=== PATIENT | male | born 1960 | race Caucasian/White ===

== ENCOUNTER 2020-08-18 | Outpatient (REF) | payer MEDICARE, MEDICAID, SELFPAY ==
[2020-08-19 13:52] LABS: Amphetamine Screen Urine Not Detected (Not Detect); Barbiturates, Urine Not Detected (Not Detect); Benzodiazepines Screen Urine Not Detected (Not Detect); Cannabinoid Screen Urine Not Detected (Not Detect); Cocaine Screen Urine Not Detected (Not Detect); Opiate Screen Urine Not Detected (Not Detect); Phencyclidine Screen Urine Not Detected (Not Detect)
== END 2020-08-18 00:01 | disposition home or self-care (01) ==
LOC: HO.LNP
PROVIDERS: Visit Provider Internal Medicine
DX: G89.29 Other chronic pain (principal); M54.5 Low back pain
CPT/HCPCS: 80307

== ENCOUNTER 2020-08-19 14:21 | Outpatient (REF) | payer MEDICARE, MEDICAID, SELFPAY ==
--- NOTE | 2020-08-19 14:26 | XR_ITS ---
EXAMINATION: XR FINGER, RIGHT CLINICAL INFORMATION: Right finger pain. COMPARISON: 09/29/2017 finger radiographs. TECHNIQUE: Three views of the right hand digits. FINDINGS: Postsurgical changes are seen in the second and third digits. The distal cortical margins of the residual proximal phalanx and middle phalanx respectively are intact. Mild to moderate degenerative changes are seen in the interphalangeal joints of the fourth and fifth digits most pronounced in the proximal interphalangeal joint of the fourth digit. The metacarpophalangeal joints are unremarkable. The carpal bones are normally aligned. The distal radius and ulna are intact. The soft tissues are unremarkable. XR/XR finger RT min 2V IMPRESSION: 1. Post surgical changes in the second and third digits without significant abnormality or change. 2. 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
== END 2020-08-19 14:22 | disposition home or self-care (01) ==
LOC: HO.XRAY 14:21
PROVIDERS: PCP Internal Medicine; Visit Provider Internal Medicine
DX: M79.644 Pain in right finger(s) (principal)
CPT/HCPCS: 73140

== ENCOUNTER → 2020-09-02 13:15 | Outpatient (BNVA) | payer MEDICARE, MEDICAID, SELFPAY | PROVIDERS: PCP Internal Medicine; Visit Provider Orthopaedic Surgery | DX: M19.041 Primary osteoarthritis, right hand (principal) | CPT/HCPCS: 99202 ==

== ENCOUNTER 2020-10-29 10:09 | Day surgery (SDC) | payer OTHER, SELFPAY ==
[2020-10-28 10:01] VITALS: BMI 38.0
[2020-10-29 12:03] VITALS: BP 168/95; PULSE 65; RESP 18; TEMP 36.9; O2SAT 96; BMI 37.2
--- NOTE | 2020-10-29 12:58 | P.PCNOP_ITS ---
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 The right ring finger PIP joint was then injected in with a combination of 0.80 mL Depo- Medrol (40 mg/ mL), and some 0.25 % plain Marcaine using the FluoroScan for needle guidance. He tolerated procedure well without any complications. He had good relief of his symptoms before leaving the room. Anesthesia: none Surgeon: Aishwarya Hong Condition: stable Disposition: PACU
== END 2020-10-29 23:59 | disposition home or self-care (01) ==
LOC: HO.SSS 10:10
PROVIDERS: PCP Internal Medicine; Visit Provider Orthopaedic Surgery
PROC: (CPT 20600; principal; 2020-10-29 11:30)
DX: M19.141 Post-traumatic osteoarthritis, right hand (principal); T14.90XS Injury, unspecified, sequela; V18 Pedal cycle rider injured in noncollision transport accident
CPT/HCPCS: 20600; J1040

== ENCOUNTER 2021-01-07 14:55 | Outpatient (REF) | payer OTHER, SELFPAY ==
[2021-01-07 15:49] LABS: MANUAL DIFF FLAG NO
[2021-01-07 15:57] LABS: Basophils Absolute Auto 0.1 X10*3/uL (0.0-0.2); Basophils Percent Auto 0.7 % (0-2); Eosinophils Absolute Auto 0.2 X10*3/uL (0.0-0.4); Eosinophils Percent Auto 2.9 % (0-4); Hematocrit 38.8 % (42-52); Hemoglobin 12.8 g/dl (14.0-18.0); Imm Gran Abs Auto 0.03 X10*3/uL (0.00-0.03); Imm Gran Pct Auto 0.4 % (0.0-0.4); Lymphocytes Absolute Auto 3.6 X10*3/uL (1.2-4.9); Lymphocytes Percent Auto 49.2 % (20-40); Mean Corpuscular Hemoglobin 31.5 pg (27.0-33.0); Mean Corpuscular Volume 95.6 fL (80-98); Mean Platelet Volume 11.2 fL (9.4-12.4); Monocytes Absolute Auto 0.5 X10*3/uL (0.1-1.2); Monocytes Percent Auto 6.1 % (2-11); Neutrophils Percent Auto 40.7 % (45-73); Platelet Count 190 X10*3/uL (160-400); Red Blood Count 4.06 X10*6/uL (4.60-5.80); Red Cell Distribution Width 13.1 % (11.0-16.0); White Blood Count 7.3 X10*3/uL (4.8-10.8)
[2021-01-07 16:20] LABS: Alanine Aminotransferase 29 U/L (0-40); Albumin Level 4.5 g/dL (3.5-5.0); Alkaline Phosphatase 71 U/L (39-117); Anion Gap 15 (12-20); Aspartate Amino Transferase 26 U/L (5-37); Bilirubin Total 0.8 mg/dL (0.0-1.0); Blood Urea Nitrogen 17 mg/dL (9-16); Calcium 9.6 mg/dL (8.4-10.2); Carbon Dioxide 32 mmol/L (22-29); Chloride 100 mmol/L (96-108); Estimated Glomerular Filt Rate > 60; Glucose Random 128 mg/dL (60-115); Potassium 4.5 mmol/L (3.3-5.1); Sodium 142 mmol/L (135-145); Total Protein 8.2 g/dL (6.5-8.0)
== END 2021-01-07 14:56 | disposition home or self-care (01) ==
LOC: HO.LAB 14:55
PROVIDERS: PCP Internal Medicine; Visit Provider Internal Medicine
DX: R42 Dizziness and giddiness (principal)
CPT/HCPCS: 36415; 80053; 84443; 85025

== ENCOUNTER 2021-02-08 11:32 | Emergency (ER) | payer OTHER, SELFPAY ==
--- NOTE | ~2021-02-08 | US_ITS ---
EXAMINATION: US VENOUS ULTRASOUND WITH DOPPLER LOWER EXTREMITY, BILATERAL CLINICAL INFORMATION: Lower extremity swelling and pain. Assess for occult DVT. COMPARISON: Right leg venous ultrasound with Doppler 06/18/2020 TECHNIQUE: Ultrasound of the deep veins is performed from the hip to the calf with compression sonography and color and pulse Doppler assessment. Spectral analysis with color-flow imaging is performed. FINDINGS: RIGHT: There is normal venous compression and respiratory variation and augmented flow. The visualized common femoral vein, superficial femoral vein, profunda femoral vein, popliteal vein, and the trifurcation region shows no evidence of deep venous thrombosis. No popliteal fossa cyst demonstrated. LEFT: There is normal venous compression and respiratory variation and augmented flow. The visualized common femoral vein, superficial femoral vein, profunda femoral vein, popliteal vein, and the trifurcation region shows no evidence of deep venous thrombosis. No popliteal fossa cyst demonstrated. US/US venous duplex LE BI IMPRESSION: No DVT demonstrated in the bilateral lower extremity.
--- NOTE | ~2021-02-08 | XR_ITS ---
EXAMINATION: XR CHEST CLINICAL INFORMATION: Shortness of breath COMPARISON: Previous chest x-ray November 2019 TECHNIQUE: Frontal view of the chest was obtained. FINDINGS: The cardiac and mediastinal contours are stable. The lungs are clear. There is no pleural effusion or pneumothorax. There are degenerative changes of the spine. XR/XR chest 1V IMPRESSION: No evidence for acute disease in the chest.
[2021-02-08 11:38] VITALS: BP 170/86; PULSE 82; RESP 18; TEMP 36.9; O2SAT 98; BMI 33.9
--- NOTE | 2021-02-08 11:41 | ECG_ITS ---
Test Reason : SOB Blood Pressure : / mmHG Vent. Rate : 075 BPM Atrial Rate : 075 BPM P-R Int : 174 ms QRS Dur : 084 ms QT Int : 350 ms P-R-T Axes : 056 000 036 degrees QTc Int : 390 ms Normal sinus rhythm Normal ECG When compared with ECG of 01-APR-2016 11:49, No significant change was found Referred By: Generic ED Physician Electronically Signed By:Everette Beverly
--- NOTE | 2021-02-08 11:59 | ED_ITS ---
HPI - SOB/Dyspnea General Chief Complaint: Dyspnea Stated Complaint: SOB,dizziness Time Seen by Provider: 02/08/21 11:57 Source: patient Mode of arrival: ambulatory Limitations: no limitations History of Present Illness HPI Narrative: 60 y/o male with history of RUBÉN, HTN, HLD, hypothyroidism, GERD, chroic low back pain who presents to the ED from home with 1 month of worsening SOB. He reports after he got the J&J COVID vaccine 1 month ago he noticed he was slightly short of breath and had come coughing. Over the last 2 weeks his coughing episodes increased and he started to get chest discomfort when he coughs. He also has intermittent dizzy spells when he coughs. He reports his breathing is worse with exertion and his coughing is worse at night. He did not sleep well last night due to coughing. He has no pulmonary history. Cough is non-productive. Chest pain is only when he coughs. He has chronic RLE edema, very mild since he had surgery on his knee several years ago. No fever or chills. MD elicited complaint: shortness of breath Onset (ago): week(s) Context: occurred during exertion and anxiety Timing: intermittent Severity: moderate Exacerbating factors: lying flat and exertion Relieving factors: rest Associated symptoms: chest pain and dizziness Treatment prior to arrival: none Related Data Home Medications Medication Instructions Recorded Confirmed clobetasol 0.05 % topical cream 1 applic TOPICAL BID 07/17/20 09/17/20 Previous Rx's Medication Instructions Recorded clobetasol 0.05 % topical ointment 1 applic TOPICAL BID PRN 14 Days 08/10/20 #15 g oxycodone-acetaminophen 5 mg-325 1 tab PO Q6H PRN #110 tab 08/18/20 mg tablet tramadol 50 mg tablet 50 mg PO TID PRN 28 Days #112 tab 08/19/20 zolpidem 10 mg tablet 10 mg PO BEDTIME PRN 30 Days #14 08/21/20 tab amlodipine 10 mg tablet 10 mg PO DAILY #30 tab 09/10/20 atorvastatin 10 mg tablet 10 mg PO DAILY 30 Days #30 tab 09/10/20 levothyroxine 137 mcg tablet 137 mcg PO QAM #90 tab 09/30/20 hydrochlorothiazide 12.5 mg tablet 12.5 mg PO QAM #30 tab 10/20/20 meclizine 25 mg tablet 25 mg PO TID PRN #30 tab 01/07/21 metoprolol succinate 200 mg 200 mg PO DAILY #90 tab 01/25/21 tablet,extended release 24 hr Allergies Allergy/AdvReac Type Severity Reaction Status Date / Time lisinopril Allergy Unknown cough Verified 02/08/21 11:37 Review of Systems Review of Systems: Constitutional: No Fever, No Chills ENT/Mouth: No sore throat, No Rhinorrhea, No Swallowing Difficulty Eyes: No Eye Pain, No Swelling, No Redness Cardiovascular: + Chest Pain, + SOB, + Orthopnea, + Edema Respiratory:+ Cough, No Sputum, No Wheezing, + dyspnea Gastrointestinal: No Nausea, No Vomiting, No Diarrhea, No abdominal Pain Genitourinary: No Dysuria, No Urinary Frequency, No Hematuria Musculoskeletal: No joint pain, No Myalgias Skin: No Skin Lesions, No rash Neuro: + Weakness, No Numbness, + Dizziness, + Headache Psych: + Anxiety/Panic, No Depression Heme/Lymph: No Bruising, No Lymphadenopathy Endocrine: No Polyuria, No Polydipsia PMFSH Past Medical History Attestation statement: The following information was validated with the patient. Medical History Chronic low back pain GERD (gastroesophageal reflux disease) History of temporal arteritis Hypercholesterolemia Hypertension Hypothyroid Obesity (BMI 30-39.9) Obstructive sleep apnea Psoriasis Renal calculi Surgical History History of arthroscopy of right knee History of cholecystectomy Status post trigger finger release Total knee replacement status Family History Family History (Updated 07/16/20 @ 13:10 by Kristen Byrd Kelsi) Father Colon cancer Mother Hypertension CVD (cardiovascular disease) Sister Breast cancer Mouth cancer Social History Social History (Updated 09/02/20 @ 13:29 by Hetal Morrow CMA) Alcohol intake: never Smoking Status: Never smoker Advance Directives: No Advance Directives Information Provided: No Current occupational status: disabled Current occupation: [employer] Physical Exam Vital Signs: Vital Signs: Last Vital Signs Temp 98.5 F 02/08/21 11:38 Pulse 82 02/08/21 11:38 Resp 18 02/08/21 11:38 BP 170/86 H 02/08/21 11:38 Pulse Ox 98 02/08/21 11:38 Body Mass Index 33.9 Appearance: Alert. Oriented X3. No acute distress. Eyes: Pupils equal, round and reactive to light. ENT: Pharynx normal. Neck: Normal inspection. Neck supple. CVS: Normal heart rate and rhythm. Pulses normal. Mild anterior chest wall ten derness bilaterally. Respiratory: No respiratory distress. Breath sounds normal. Abdomen: Obese, Soft and nontender. +BS x4 Skin: Skin warm and dry. Normal skin color. Normal skin turgor. No rashes. Extremities: Trace right lower extremity edema, mild left calf tenderness, no erythema or warmth. Neuro: Oriented X 3. No motor deficit. No sensory deficit. Steady gait. Course Course Course Narrative: 60 y/o male presenting with SOB, cough and intermittent chest pain x1 month, since he got his J&J COVID vaccine. He appears well on arrival, lungs are clear and SPO2 98%. Will get CXR, EKG, labs and LE U/S to r/o DVT. Reevaluation(s) Reevaluation #1: CXR is clear. Lab workup is unremarkable including negtive troponin, BNP and DDIMER. Pending U/S of LE and viral PCR. Reevaluation #2: COVID POSITIVE. Patient counseled on diagnosis and management. LE Dopplers are negative for DVT. He is stable for d/c - no hypoxia or respiratory distress. Counseled on warning signs to return to the ED. Encouraged to f/u with PCP. MDM - SOB/Dyspnea Lab Data Attestation: I reviewed the patient's lab results. Result diagrams: 02/08/21 11:52 02/08/21 11:52 Labs: Lab Results 02/08/21 02/08/21 02/08/21 Range/Units 11:52 11:52 11:52 WBC 5.6 (4.8-10.8) X10*3/uL RBC 4.02 L (4.60-5.80) X10*6/uL Hgb 12.6 L (14.0-18.0) g/dl Hct 38.4 L (42-52) % MCV 95.5 (80-98) fL MCH 31.3 (27.0-33.0) pg MCHC 32.8 (31.0-36.0) g/dl RDW 13.1 (11.0-16.0) % Plt Count 163 (160-400) X10*3/uL MPV 10.9 (9.4-12.4) fL Immature Gran % (Auto) 0.2 (0.0-0.4) % Neut % (Auto) 36.1 L (45-73) % Lymph % (Auto) 44.5 H (20-40) % [place] % (Auto) 13.9 H (2-11) % Eos % (Auto) 4.6 H (0-4) % Baso % (Auto) 0.7 (0-2) % Lymph # (Auto) 2.5 (1.2-4.9) X10*3/uL [place] # (Auto) 0.8 (0.1-1.2) X10*3/uL Eos # (Auto) 0.3 (0.0-0.4) X10*3/uL Baso # (Auto) 0.0 (0.0-0.2) X10*3/uL Abs Immat Gran (auto) 0.01 (0.00-0.03) X10*3/uL Absolute Neuts (auto) 2.0 (2.0-8.3) X10*3/uL Absolute Nucleated RBC 0.000 (0.0-0.012) X10*3/uL Nucleated RBC % (auto) 0.0 (0.0-0.2) /100WBC D-Dimer 206 NG/ML Hold Blue Top SEE NOTE Sodium 139 (135-145) mmol/L Potassium 4.3 (3.3-5.1) mmol/L Chloride 101 (96-108) mmol/L Carbon Dioxide 30 H (22-29) mmol/L Anion Gap 12 (12-20) BUN 16 (9-16) mg/dL Creatinine 1.10 (0.5-1.4) mg/dL Estim Creat Clear Calc 76.1 Estimated GFR > 60 Random Glucose 175 H D (60-115) mg/dL Calcium 9.1 (8.4-10.2) mg/dL Troponin I High Sens (<3.5-35.0) ng/L B-Natriuretic Peptide (<100) pg/mL Urine Color Urine Appearance Urine pH (5.0-8.0) Ur Specific [place] (1.005-1.025) Urine Protein (NEG-TRACE) MG/DL Urine Glucose (UA) (NEG) MG/DL Urine Ketones (NEG) MG/DL Urine Blood (NEG) Urine Nitrite (NEG) Ur Leukocyte Esterase (NEG) Coronavirus (PCR) (Negative) Influenza Type A (PCR) (Negative) Influenza Type B (PCR) (Negative) RSV RNA Qual (PCR) (Negative) 02/08/21 02/08/21 02/08/21 Range/Units 11:52 12:20 12:29 WBC (4.8-10.8) X10*3/uL RBC (4.60-5.80) X10*6/uL Hgb (14.0-18.0) g/dl Hct (42-52) % MCV (80-98) fL MCH (27.0-33.0) pg MCHC (31.0-36.0) g/dl RDW (11.0-16.0) % Plt Count (160-400) X10*3/uL MPV (9.4-12.4) fL Immature Gran % (Auto) (0.0-0.4) % Neut % (Auto) (45-73) % Lymph % (Auto) (20-40) % [place] % (Auto) (2-11) % Eos % (Auto) (0-4) % Baso % (Auto) (0-2) % Lymph # (Auto) (1.2-4.9) X10*3/uL [place] # (Auto) (0.1-1.2) X10*3/uL Eos # (Auto) (0.0-0.4) X10*3/uL Baso # (Auto) (0.0-0.2) X10*3/uL Abs Immat Gran (auto) (0.00-0.03) X10*3/uL Absolute Neuts (auto) (2.0-8.3) X10*3/uL Absolute Nucleated RBC (0.0-0.012) X10*3/uL Nucleated RBC % (auto) (0.0-0.2) /100WBC D-Dimer NG/ML Hold Blue Top Sodium (135-145) mmol/L Potassium (3.3-5.1) mmol/L Chloride (96-108) mmol/L Carbon Dioxide (22-29) mmol/L Anion Gap (12-20) BUN (9-16) mg/dL Creatinine (0.5-1.4) mg/dL Estim Creat Clear Calc Estimated GFR Random Glucose (60-115) mg/dL Calcium (8.4-10.2) mg/dL Troponin I High Sens < 3.5 (<3.5-35.0) ng/L B-Natriuretic Peptide < 10 (<100) pg/mL Urine Color YELLOW Urine Appearance CLEAR Urine pH 5.5 (5.0-8.0) Ur Specific [place] >= 1.030 H (1.005-1.025) Urine Protein TRACE (NEG-TRACE) MG/DL Urine Glucose (UA) NEG (NEG) MG/DL Urine Ketones NEG (NEG) MG/DL Urine Blood NEG (NEG) Urine Nitrite NEG (NEG) Ur Leukocyte Esterase NEG (NEG) Coronavirus (PCR) POSITIVE A (Negative) Influenza Type A (PCR) NEGATIVE (Negative) Influenza Type B (PCR) NEGATIVE (Negative) RSV RNA Qual (PCR) NEGATIVE (Negative) ECG Data Attestation: I personally reviewed and interpreted this ECG as follows: ECG interpretation date: 02/08/21 ECG interpretation time: 13:10 Interpretation: normal sinus rhythm, HR 75 bpm, normal NM interval, normal QTc, no ST segment elevations or depressions Discharge Plan Discharge Clinical Impression: COVID-19 Patient Disposition: Home, Self-Care Instructions: COVID-19 (Coronavirus Disease 2019) (ED) Additional Instructions: You were found to be COVID-19 POSITIVE today. Unfortunately vaccinations so do prevent disease 100% of the time. Hopefully because you were vaccinated your disease will be milder. Your chest x-ray and oxygen levels were normal. Your blood work was unremarkable. Your EKG was normal. Ultrasound of your legs did not show any blood clots. Rest. Drink plenty of fluids. Do not go out in public for the next 10 days. Wear your mask at home and disinfect the surfaces frequently. Keep your windows open when able. Take over the counter cold/flu medications as needed for your symptoms. Take Tylenol and/or Motrin as needed for fevers and body aches. Follow up with your doctor this week. If you shortness of breath worsens , if you develop difficulty breathing or any other concerning symptom come back to the ER for further evaluation. Prescriptions: No Action clobetasol 0.05 % ointment 1 applic topical BID PRN (Reason: rash) 14 Days Qty: 15 RF: 1 tramadol 50 mg tablet 50 mg PO TID PRN (Reason: pain) 28 Days Qty: 112 RF: 2 zolpidem 10 mg tablet 10 mg PO BEDTIME PRN (Reason: sleep) 30 Days Qty: 14 RF: 2 atorvastatin 10 mg tablet 10 mg PO DAILY 30 Days Qty: 30 RF: 4 amlodipine 10 mg tablet 10 mg PO DAILY Qty: 30 RF: 4 levothyroxine 137 mcg tablet 137 mcg PO QAM Qty: 90 RF: 2 hydrochlorothiazide 12.5 mg tablet 12.5 mg PO QAM Qty: 30 RF: 11 meclizine 25 mg tablet 25 mg PO TID PRN (Reason: dizziness) Qty: 30 RF: 0 metoprolol succinate 200 mg tablet extended release 24 hr 200 mg PO DAILY Qty: 90 RF: 2 oxycodone-acetaminophen [Percocet] 5-325 mg tablet 1 tab PO Q6H PRN (Reason: pain) Qty: 110 RF: 0 clobetasol 0.05 % cream 1 applic topical BID RF: 0 Discharge Date/Time: 02/08/21 14:37
[2021-02-08 12:06] LABS: MANUAL DIFF FLAG NO
[2021-02-08 12:09] LABS: Basophils Percent Auto 0.7 % (0-2); Eosinophils Absolute Auto 0.3 X10*3/uL (0.0-0.4); Eosinophils Percent Auto 4.6 % (0-4); Hematocrit 38.4 % (42-52); Hemoglobin 12.6 g/dl (14.0-18.0); Imm Gran Abs Auto 0.01 X10*3/uL (0.00-0.03); Imm Gran Pct Auto 0.2 % (0.0-0.4); Lymphocytes Absolute Auto 2.5 X10*3/uL (1.2-4.9); Lymphocytes Percent Auto 44.5 % (20-40); Mean Corpuscular HGB Conc 32.8 g/dl (31.0-36.0); Mean Corpuscular Hemoglobin 31.3 pg (27.0-33.0); Mean Corpuscular Volume 95.5 fL (80-98); Mean Platelet Volume 10.9 fL (9.4-12.4); Monocytes Absolute Auto 0.8 X10*3/uL (0.1-1.2); Monocytes Percent Auto 13.9 % (2-11); Neutrophils Percent Auto 36.1 % (45-73); Platelet Count 163 X10*3/uL (160-400); Red Blood Count 4.02 X10*6/uL (4.60-5.80); Red Cell Distribution Width 13.1 % (11.0-16.0); White Blood Count 5.6 X10*3/uL (4.8-10.8)
[2021-02-08 12:37] LABS: Anion Gap 12 (12-20); Blood Urea Nitrogen 16 mg/dL (9-16); Calcium 9.1 mg/dL (8.4-10.2); Carbon Dioxide 30 mmol/L (22-29); Chloride 101 mmol/L (96-108); Creatinine Clr Calc Pharmacy 76.1; Estimated Glomerular Filt Rate > 60; Glucose Random 175 mg/dL (60-115); Potassium 4.3 mmol/L (3.3-5.1); Sodium 139 mmol/L (135-145)
[2021-02-08 12:47] LABS: B Type Natriuretic Peptide < 10 pg/mL (<100); Troponin-I High Sensitivity < 3.5 ng/L (<3.5-35.0)
[2021-02-08 12:48] LABS: Glucose Urine UA NEG (NEG); Leukocyte Esterase Urine NEG (NEG); Nitrite Urine NEG (NEG); PH 5.5 (5.0-8.0); Specific Gravity - Urine >= 1.030 (1.005-1.025); Urine Blood NEG (NEG); Urine Ketones NEG (NEG); Urine Protein TRACE MG/DL (NEG-TRACE)
[2021-02-08 12:49] LABS: Appearance Urine CLEAR; Color Urine YELLOW
[2021-02-08 13:04] LABS: Influenza A PCR NEGATIVE (Negative); Influenza B PCR NEGATIVE (Negative); Resp Syncy Virus RNA Qual PCR NEGATIVE (Negative); SARS COV2 PCR INHOUSE POSITIVE (Negative)
[2021-02-08 13:17] LABS: D Dimer 206 NG/ML
== END 2021-02-08 14:37 | disposition home or self-care (01) ==
PROVIDERS: Physician Assistant; Emergency Provider Emergency Medicine; PCP Internal Medicine
DX: U07.1 COVID-19 (principal); R06.00 Dyspnea, unspecified; R60.0 Localized edema; M54.5 Low back pain; Z79.899 Other long term (current) drug therapy
CPT/HCPCS: 0241U; 36415; 71045; 80048; 81003; 83880; 84484; 85025; 85379; 93005; 93970; 99283

== ENCOUNTER 2021-03-04 22:03 | Emergency (ER) | payer OTHER, SELFPAY ==
--- NOTE | ~2021-03-04 | XR_ITS ---
EXAMINATION: XR KNEE, LEFT CLINICAL INFORMATION: Knee pain COMPARISON: 08/03/2017 and 07/13/2017 TECHNIQUE: Four views of the left knee. FINDINGS: Bones and soft tissues are normal aside from some minimal narrowing of the medial compartment. No fracture or joint effusion. Alignment is anatomic. No abnormal soft tissue calcification. XR/XR knee LT 2V IMPRESSION: Mild degenerative changes present. Minimal narrowing of medial compartment
[2021-03-04 22:07] VITALS: BP 180/75; PULSE 92; RESP 18; TEMP 37.1; O2SAT 97; BMI 34.8
--- NOTE | 2021-03-04 23:36 | ED.LOWEXIN ---
HPI - Extremity Injury (Lower) General Chief Complaint: Extremity Injury, Lower Stated Complaint: knee pain Time Seen by Provider: 03/04/21 23:26 Source: patient Mode of arrival: wheelchair Limitations: no limitations History of Present Illness HPI Narrative: Patient comes to emergency room, complaining of left-sided knee pain. Patient states he was at home pushing a door. Patient states that he does not remember hurting himself in any way but he heard a loud pop. Immediately patient started having pain which gradually became worse over the last couple of hours. Patient is unable to bear weight. Patient does not have swelling. Related Data Home Medications Medication Instructions Recorded Confirmed clobetasol 0.05 % topical cream 1 applic TOPICAL BID 07/17/20 09/17/20 Previous Rx's Medication Instructions Recorded clobetasol 0.05 % topical ointment 1 applic TOPICAL BID PRN 14 Days 08/10/20 #15 g oxycodone-acetaminophen 5 mg-325 1 tab PO Q6H PRN #110 tab 08/18/20 mg tablet tramadol 50 mg tablet 50 mg PO TID PRN 28 Days #112 tab 08/19/20 zolpidem 10 mg tablet 10 mg PO BEDTIME PRN 30 Days #14 08/21/20 tab atorvastatin 10 mg tablet 10 mg PO DAILY 30 Days #30 tab 09/10/20 levothyroxine 137 mcg tablet 137 mcg PO QAM #90 tab 09/30/20 hydrochlorothiazide 12.5 mg tablet 12.5 mg PO QAM #30 tab 10/20/20 meclizine 25 mg tablet 25 mg PO TID PRN #30 tab 01/07/21 metoprolol succinate 200 mg 200 mg PO DAILY #90 tab 01/25/21 tablet,extended release 24 hr amlodipine 10 mg tablet 10 mg PO DAILY 90 Days #90 tab 02/12/21 acetaminophen 650 mg PO Q8H PRN #14 tab 03/04/21 ibuprofen 600 mg PO TID PRN #14 tab 03/04/21 Allergies Allergy/AdvReac Type Severity Reaction Status Date / Time lisinopril Allergy Unknown cough Verified 02/08/21 11:37 Review of Systems Review of Systems: Constitutional : No Weight loss, No Fever, No Chills, No Night Sweats, No Fatigue, No Malaise ENT/Mouth : No Hearing loss, No Ear Pain, No Nasal Congestion, No Sinus Pain, No Hoarseness, No sore throat, No Rhinorrhea, No Swallowing Difficulty Eyes: No Eye Pain, No Swelling, No Redness, No Foreign Body, No Discharge, No Vision Changes Cardiovascular : No Chest Pain, No SOB, No Dyspnea on Exertion, No Orthopnea, No Edema, No Palpitations Respiratory : No Cough, No Sputum, No Wheezing, No Smoke Exposure, No Dyspnea Gastrointestinal : No Nausea, No Vomiting, No Diarrhea, No Constipation, No abdominal Pain, No Hematochezia, No Melena Genitourinary : no irregular bleeding, No Dysuria, No Urinary Frequency, No Hematuria, No Urinary Incontinence, No Urgency, No Flank Pain, No Urinary Flow Changes, No Hesitancy Musculoskeletal : Complaining of left knee pain, No Myalgias, No Joint Swelling Skin : No Skin Lesions, No rash Neuro : No Weakness, No Numbness, No Paresthesias, No Loss of Consciousness, No Dizziness, No Headache Psych : No Anxiety/Panic, No Depression, No SI/HI/AH/VH, No Social Issues, Heme/Lymph: No Bruising, No Bleeding,No Lymphadenopathy Endocrine : No Polyuria, No Polydipsia, No Temperature Intolerance [facility] Past Medical History Medical History Chronic low back pain GERD (gastroesophageal reflux disease) History of temporal arteritis Hypercholesterolemia Hypertension Hypothyroid Obesity (BMI 30-39.9) Obstructive sleep apnea Psoriasis Renal calculi Surgical History History of arthroscopy of right knee History of cholecystectomy Status post trigger finger release Total knee replacement status Family History Family History (Updated 07/16/20 @ 13:10 by Kristen Byrd Kelsi) Father Colon cancer Mother Hypertension CVD (cardiovascular disease) Sister Breast cancer Mouth cancer Social History Social History (Updated 09/02/20 @ 13:29 by Hetal Morrow CMA) Alcohol intake: never Advance Directives: No Advance Directives Information Provided: No Current occupational status: disabled Current occupation: [employer] Physical Exam Vital Signs: Vital Signs: Last Vital Signs Temp 98.7 F 03/04/21 22:07 Pulse 92 03/04/21 22:07 Resp 18 03/04/21 22:07 BP 180/75 H 03/04/21 22:07 Pulse Ox 97 03/04/21 22:07 Body Mass Index 34.8 Appearance: Alert. Oriented X3. No acute distress. Eyes: Pupils equal, round and reactive to light. ENT: Pharynx normal. Neck: Normal inspection. Neck supple. No lymph nodes noted. No crepitus CVS: Normal heart rate and rhythm. Pulses normal. Normal S1 and S2 Respiratory: No respiratory distress. Breath sounds normal. No Wheezing. No rales Abdomen: Soft and nontender. No rigidity. No distention. good BS x4 Skin: Skin warm and dry. Normal skin color. Normal skin turgor. Extremities: No lower extremity edema. Left knee is not swollen, no joint effusion appreciated. Patient has no pain above or below the knee, no patella pain, no pain behind the knee. Negative anterior and posterior drawer test, patient does have a positive valgus and varus stress test Neuro: Oriented X 3. No motor deficit. No sensory deficit. Moving all extermities. No slurred speech. Course Course Course Narrative: Patient's x-ray is within normal limits. I discussed with the patient that given his history and physical exam, he likely has a ligament rupture. Patient will likely need an MRI. Patient was provided with a knee immobilizer and crutches. MDM - Extremity Injury (Lower) Imaging Data Left knee x-ray: Radiologist's impression: FINDINGS: Bones and soft tissues are normal aside from some minimal narrowing of the medial compartment. No fracture or joint effusion. Alignment is anatomic. No abnormal soft tissue calcification. XR/XR knee LT 2V IMPRESSION: Mild degenerative changes present. Minimal narrowing of medial compartment Discharge Plan Discharge Clinical Impression: Acute knee pain Qualifiers: Laterality: left Qualified Code(s): M25.562 - Pain in left knee Patient Disposition: Home, Self-Care Instructions: Knee Pain (ED), Knee Immobilizer (ED) Additional Instructions: It is very likely that you have a ligament rupture in your knee. Please follow-up with your primary care physician as you may need an MRI. Avoid weight-bearing. Please follow-up with your primary care physician and orthopedic surgeon tomorrow. If you have any worsening or new symptoms, please return to the emergency room or call 911 Prescriptions: New ibuprofen 600 mg tablet 600 mg PO TID PRN (Reason: fever) Qty: 14 RF: 0 acetaminophen 650 mg tablet extended release 650 mg PO Q8H PRN (Reason: pain) Qty: 14 RF: 0 No Action clobetasol 0.05 % ointment 1 applic topical BID PRN (Reason: rash) 14 Days Qty: 15 RF: 1 tramadol 50 mg tablet 50 mg PO TID PRN (Reason: pain) 28 Days Qty: 112 RF: 2 zolpidem 10 mg tablet 10 mg PO BEDTIME PRN (Reason: sleep) 30 Days Qty: 14 RF: 2 atorvastatin 10 mg tablet 10 mg PO DAILY 30 Days Qty: 30 RF: 4 levothyroxine 137 mcg tablet 137 mcg PO QAM Qty: 90 RF: 2 hydrochlorothiazide 12.5 mg tablet 12.5 mg PO QAM Qty: 30 RF: 11 meclizine 25 mg tablet 25 mg PO TID PRN (Reason: dizziness) Qty: 30 RF: 0 metoprolol succinate 200 mg tablet extended release 24 hr 200 mg PO DAILY Qty: 90 RF: 2 amlodipine 10 mg tablet 10 mg PO DAILY 90 Days Qty: 90 RF: 3 oxycodone-acetaminophen [Percocet] 5-325 mg tablet 1 tab PO Q6H PRN (Reason: pain) Qty: 110 RF: 0 clobetasol 0.05 % cream 1 applic topical BID RF: 0 Referrals: Deacon Medina MD [Physician] - 2 days
[2021-03-04] MEDS: Ibuprofen 600 MG TABLET PO (23:41)
[2021-03-05 00:17] VITALS: BP 140/80; PULSE 80; RESP 20; O2SAT 97
--- NOTE | 2021-03-05 00:21 | PC.NURSE ---
PT SEEN AND EVALUATED BY DR CARVAJAL. MONO REVIEWED BY MD. PLAN IS FOR DC HOME WITH IMMOBILIZER AND CRUTCHES. IMMOBILIZER APPLIED BY JASMIN ORELLANA. CRUTCH TRAINING PROVIDED BY RN. PT RETURN DEMONSTRATED WITH PROPER TECHNIQUE. AWARE AND AGREEABLE TO DC PLAN. CMS INTACT. PT STATES NO QUESTIONS
== END 2021-03-05 00:23 | disposition home or self-care (01) ==
PROVIDERS: Emergency Provider Emergency Medicine; PCP Internal Medicine
DX: M25.562 Pain in left knee (principal)
CPT/HCPCS: 73560; 99284

== ENCOUNTER → 2021-03-08 15:06 | Outpatient (BNVA) | payer OTHER, SELFPAY | PROVIDERS: PCP Internal Medicine; Visit Provider Orthopaedic Surgery | DX: S80.02XD Contusion of left knee, subsequent encounter (principal) | CPT/HCPCS: 99212 ==

== ENCOUNTER → 2021-04-15 14:12 | Outpatient (BNVA) | payer OTHER, SELFPAY | PROVIDERS: PCP Internal Medicine; Visit Provider Orthopaedic Surgery | DX: M25.462 Effusion, left knee (principal) | CPT/HCPCS: 99212 ==

== ENCOUNTER 2021-04-30 11:01 | Outpatient (REF) | payer OTHER, SELFPAY ==
--- NOTE | ~2021-04-30 | MR_ITS ---
EXAMINATION: MR KNEE WITHOUT CONTRAST, LEFT CLINICAL INFORMATION: Left knee pain and effusion. COMPARISON: Radiographs of knee from 03/04/2021 TECHNIQUE: MRI of the knee without contrast was performed using routine sequences on a high-field scanner. FINDINGS: MENISCI: Medial Meniscus: There is signal change of mucoid degeneration of the body and posterior horn. The free edge of the meniscal body is slightly truncated and, in this area, there appears to be a small horizontal tear at the inner third of the meniscal body. No meniscal flap. The root ligaments are intact. Lateral Meniscus: There is mucoid degeneration and horizontal undersurface tear involving anterior and posterior horns. The tear extends into the peripheral third of the meniscus, where there is minimal displacement of meniscal tissue at the nonarticular surface and formation of a 0.6 x 1.2 x 1.2 cm parameniscal cyst, deep to the fibular collateral ligament. LIGAMENTS: Cruciate: Anterior cruciate ligament is intact but mildly thickened and mild heterogeneous from mucoid degeneration. Posterior cruciate ligament is unremarkable. Collateral: At the medial knee, the tibial collateral ligament is intact. At the lateral knee, the iliotibial band, fibular collateral ligament, biceps femoris tendon and popliteus tendon are intact. EXTENSOR MECHANISM: The distal quadriceps tendon is normal. The patellar tendon, patellar retinacula, and Hoffa's fat pad are unremarkable. ARTICULAR CARTILAGE/BONE: Patellofemoral Compartment: Patella is properly positioned within the trochlear groove. Moderate and high-grade chondral loss of the upper pole of the patella, and partial-thickness fissures in cartilage at the median ridge in the mid third of the patella. A full-thickness chondral defect of the inferior aspect of the medial trochlear facet measures 1 cm diameter. Medial Compartment: Mild thinning and fissuring of articular cartilage at the weightbearing femoral condyle. Also, chondral fissure is noted in the posterior third of the condyle (image 9, series 2). Marginal osteophytes of the mildly degenerated compartment. Lateral Compartment: The articular cartilage is generally well-preserved. No bone bruise or fracture. Small ganglion cyst along the posterior joint capsule, deep to the lateral gastrocnemius, measures up to 1.1 cm. JOINT FLUID AND BURSAE: Small joint effusion. No Vee's cyst. MR/MR knee LT wo con IMPRESSION: * Mild osteoarthritis of medial tibiofemoral compartment and moderate osteoarthritis of the patellofemoral compartment. Articular cartilage loss is worst (i.e., moderate to severe) at the upper pole of the patella and inferior aspect of the medial trochlear facet. * Horizontal tear of the lateral meniscus extends from anterior to posterior horn and also disrupts the peripheral, nonarticular surface of the meniscal body where there is a parameniscal cyst. * Small horizontal tear at the free edge of the medial meniscal body. * There is mucoid degeneration of the anterior cruciate ligament. * Small joint effusion without Vee's cyst.
== END 2021-04-30 11:02 | disposition home or self-care (01) ==
LOC: HO.MRI 11:01
PROVIDERS: Visit Provider Orthopaedic Surgery
DX: M25.462 Effusion, left knee (principal)
CPT/HCPCS: 73721

== ENCOUNTER → 2021-05-20 13:19 | Outpatient (BNVA) | payer OTHER, SELFPAY | PROVIDERS: Visit Provider Orthopaedic Surgery | DX: S83.282D Other tear of lateral meniscus, current injury, left knee, subsequent encounter (principal) | CPT/HCPCS: 99212 ==

== ENCOUNTER 2021-06-15 10:46 | Outpatient (REF) | payer OTHER, SELFPAY ==
[2021-06-15 11:49] LABS: MANUAL DIFF FLAG NO
[2021-06-15 12:01] LABS: Estimated Average Glucose 146 mg/dL; Hemoglobin A1c % 6.7 %
[2021-06-15 12:04] LABS: Basophils Absolute Auto 0.1 X10*3/uL (0.0-0.2); Basophils Percent Auto 0.7 % (0-2); Eosinophils Absolute Auto 0.4 X10*3/uL (0.0-0.4); Eosinophils Percent Auto 5.1 % (0-4); Hematocrit 39.9 % (42-52); Hemoglobin 13.1 g/dl (14.0-18.0); Imm Gran Abs Auto 0.01 X10*3/uL (0.00-0.03); Imm Gran Pct Auto 0.1 % (0.0-0.4); Immature Retic Fraction 17.9 % (2.3-13.4); Lymphocytes Absolute Auto 3.9 X10*3/uL (1.2-4.9); Lymphocytes Percent Auto 54.9 % (20-40); Mean Corpuscular HGB Conc 32.8 g/dl (31.0-36.0); Mean Corpuscular Hemoglobin 30.7 pg (27.0-33.0); Mean Corpuscular Volume 93.4 fL (80-98); Mean Platelet Volume 10.7 fL (9.4-12.4); Monocytes Absolute Auto 0.5 X10*3/uL (0.1-1.2); Monocytes Percent Auto 7.1 % (2-11); Neutrophils Absolute Auto 2.3 X10*3/uL (2.0-8.3); Neutrophils Percent Auto 32.1 % (45-73); Platelet Count 216 X10*3/uL (160-400); Red Blood Count 4.27 X10*6/uL (4.60-5.80); Red Cell Distribution Width 13.5 % (11.0-16.0); Retic HGB Equivalent 34.3 pg (30.0-35.0); Reticulocyte Percent 1.6 % (0.5-1.8); Reticulocytes Absolute 0.068 X10*6/uL (0.026-0.095)
[2021-06-15 12:21] LABS: Alanine Aminotransferase 16 U/L (0-40); Albumin Level 4.4 g/dL (3.5-5.0); Alkaline Phosphatase 65 U/L (39-117); Anion Gap 11 (12-20); Aspartate Amino Transferase 20 U/L (5-37); Bilirubin Total 0.9 mg/dL (0.0-1.0); Blood Urea Nitrogen 13 mg/dL (9-16); Calcium 9.7 mg/dL (8.4-10.2); Carbon Dioxide 31 mmol/L (22-29); Chloride 104 mmol/L (96-108); Cholesterol 240 mg/dL; Estimated Glomerular Filt Rate > 60; Glucose Random 132 mg/dL (60-115); HDL Cholesterol 52 mg/dL; Iron 101 mcg/dL (45-160); LDL Cholesterol Calculated 136 mg/dl; Percent Iron Saturation 25 % (15-50); Potassium 4.7 mmol/L (3.3-5.1); Sodium 141 mmol/L (135-145); Total Iron Binding Capacity 401 mcg/dL (228-428); Total Protein 7.7 g/dL (6.5-8.0); Triglycerides 263 mg/dL; Unsaturated Iron Binding 300 ug/dL
[2021-06-15 12:27] LABS: Ferritin 182 ng/mL (20-250); Free T4 (Free Thyroxine) 0.81 ng/dL (0.71-1.85); Prostate Specific Antigen Scr 0.39 ng/mL (<0.05-4.0); Thyroid Stimulating Hormone 4.14 uIU/mL (0.32-4.0)
[2021-06-15 12:43] LABS: Folate 15.3 ng/mL (> or = 4.0); Vitamin B12 382 pg/mL (200-900)
== END 2021-06-15 10:47 | disposition home or self-care (01) ==
LOC: HO.LAB 10:46
PROVIDERS: PCP Internal Medicine; Visit Provider Internal Medicine
DX: R73.02 Impaired glucose tolerance (oral) (principal); E78.00 Pure hypercholesterolemia, unspecified; E03.9 Hypothyroidism, unspecified; Z12.5 Encounter for screening for malignant neoplasm of prostate
CPT/HCPCS: 36415; 80053; 80061; 82607; 82728; 82746; 83036; 83540; 84153; 84439; 84443; 85025; 85045

== ENCOUNTER 2021-06-23 06:02 | Day surgery (SDC) | payer OTHER, SELFPAY ==
[2021-06-17 10:21] VITALS: BMI 33.3
--- NOTE | 2021-06-22 09:00 | P.CONAN_ITS ---
Documented by User: Louisa Akins NP 06/22/21 09:02 HPI - Anesthesia Eval Consult details Narrative: 60yo M for Left Knee Arthroscopy PMFSH Active Problems Active Problems: All Active Problems (Updated 06/17/21 @ 10:15 by Nita Alanis RN) Finger pain, right (Acute) Osteoarthritis of right hand (Acute) Impaired glucose tolerance (Acute) Dizziness (Acute) COVID-19 (Acute) Tear of meniscus of left knee (Acute) Effusion, left knee (Acute) Psoriasis (Acute) Hypercholesterolemia (Acute) GERD (gastroesophageal reflux disease) (Acute ~04/15/21) Obesity (BMI 30-39.9) (Acute) Hypothyroid (Acute) Chronic low back pain (Acute) Hypertension (Acute) Past Medical History Medical History Chronic low back pain Effusion, left knee GERD (gastroesophageal reflux disease) (~04/15/21) History of COVID-19 History of herniated intervertebral disc History of temporal arteritis Hx of iron deficiency anemia Hypercholesterolemia Hypertension Hypothyroid Obesity (BMI 30-39.9) Obstructive sleep apnea On beta anival at home Osteoarthritis Psoriasis Renal calculi Family History Family History Father Colon cancer Mother Hypertension CVD (cardiovascular disease) Sister Breast cancer Mouth cancer Surgical History Surgical History History of arthroscopy of right knee History of cholecystectomy Hx of colonoscopy Hx of surgical amputation of finger Status post trigger finger release Total knee replacement status Social History Social History Housing: House Are you a primary critical care nurse specialist to a significant other at home: No Do you presently have visiting nurse or other home services: No Alcohol intake: never Patient Tobacco Use Status: Never used Tobacco Second Hand Smoke Exposure: No Use of substances other than those prescribed or required for medical reasons: No Have you been hit, kicked, punched, or otherwise hurt by someone within the past year? If so, by whom?: No Are you DNR?: No Advance Directives: No Advance Directives Information Provided: No Advance Directives on File: No Recently lost weight without trying: No Eating poorly because of decreased appetite: No Nutrition Risks: No Nutritional Risk service: No Current occupational status: disabled Current occupation: [employer] Meds Allergies Allergy/AdvReac Type Severity Reaction Status Date / Time lisinopril Allergy Severe cough Verified 06/23/21 06:30 Exam Exam Date and Time: June 22, 2021 0900 Height,Weight and Vital Signs: Height 5 ft 5 in Weight 90.718 kg Pertinent Lab Results Pertinent Lab Results: Laboratory Tests 06/15/21 06/15/21 11:10 11:10 WBC 7.0 Hgb 13.1 L Hct 39.9 L Plt Count 216 D Sodium 141 Potassium 4.7 Chloride 104 Carbon Dioxide 31 H BUN 13 Creatinine 1.02 Narrative Narrative: EKG 01/2021 Vent. Rate : 075 BPM ? ? Atrial Rate : 075 BPM ?? P-R Int : 174 ms? QRS Dur : 084 ms ? ? QT Int : 350 ms ? ? ? P-R-T Axes : 056 000 036 degrees ?? QTc Int : 390 ms ? Normal sinus rhythm Normal ECG When compared with ECG of 01-APR-2016 11:49, No significant change was found Assessment and Plan Assessment Anesthesia Assessment: Chart Reviewed Documented by User: Neil Parikh MD 06/23/21 06:57 [facility] Past Medical History Medical History Chronic low back pain Effusion, left knee GERD (gastroesophageal reflux disease) (~04/15/21) History of COVID-19 History of herniated intervertebral disc History of temporal arteritis Hx of iron deficiency anemia Hypercholesterolemia Hypertension Hypothyroid Obesity (BMI 30-39.9) Obstructive sleep apnea On beta anival at home Osteoarthritis Psoriasis Renal calculi Family History Family History Father Colon cancer Mother Hypertension CVD (cardiovascular disease) Sister Breast cancer Mouth cancer Family history of problems with anesthesia: No Surgical History Surgical History History of arthroscopy of right knee History of cholecystectomy Hx of colonoscopy Hx of surgical amputation of finger Status post trigger finger release Total knee replacement status History of Problems with Anesthesia: No Social History Social History Housing: House Are you a primary critical care nurse specialist to a significant other at home: No Do you presently have visiting nurse or other home services: No Alcohol intake: never Patient Tobacco Use Status: Never used Tobacco Second Hand Smoke Exposure: No Use of substances other than those prescribed or required for medical reasons: No Have you been hit, kicked, punched, or otherwise hurt by someone within the past year? If so, by whom?: No Are you DNR?: No Advance Directives: No Advance Directives Information Provided: No Advance Directives on File: No Recently lost weight without trying: No Eating poorly because of decreased appetite: No Nutrition Risks: No Nutritional Risk service: No Current occupational status: disabled Current occupation: [employer] Allergies Allergy/AdvReac Type Severity Reaction Status Date / Time lisinopril Allergy Severe cough Verified 06/23/21 06:30 Exam Airway Mallampati Class: III TM Dist: >3cm Neck ROM: Full Loose/Missing/Broken Teeth: No Heart: [id number] Lungs: cta b/l Assessment and Plan Assessment Anesthesia Assessment: Anesthesia Plan Discussed Final Anesthetic Review Family History of Problems with Anesthesia: No History of Problems with Anesthesia: No NPO: Yes ASA Class: III Final Preanesthetic Review: No Changes in Pt Med Stat, Meds/Allgs Chart Reviewed, Consent Obtained/Reviewed and Anes Risks/Benef Reviewed Patient Risk: Intermediate Procedure Risk: Low Assessment/Block/Sedation in SS: Assess/Block/Sedation-SS Anesthetic Plan Anesthetic Plan: GA and Agree w/ Assess. and Plan Disposition: Standard PACU
[2021-06-23] VITALS (18 sets, daily range): BP systolic 119–170; BP diastolic 56–97; PULSE 62–83; RESP 16–20; TEMP 36.2–36.9; O2SAT 88–98
[2021-06-23] MEDS: Lactated Ringers 1,000 ML 100 ML IVCONT (06:38)
--- NOTE | 2021-06-23 07:19 | MHC.SHP ---
Pre-Procedural Eval Section A Date of Service: 06/23/21 The patient is an INPATIENT: No Changes since office visit: Yes Patient answered all questions; No Cold of Flu in the past 2 weeks, No New Medical Problems and No Changes in Medication The History & Physical has been completed within 30 days and I have reviewed it.: Yes Section B Chief Complaint: tear of meniscus Allergies: Allergies Allergy/AdvReac Type Severity Reaction Status Date / Time lisinopril Allergy Severe cough Verified 06/23/21 06:30 Plan I have reviewed the history and physical and performed a pertinent physical examination on my patient. No changes have occurred unless specified.
--- NOTE | 2021-06-23 08:15 | P.BOP_ITS ---
Brief Operative Note Date of Service: 06/23/21 Pre-op diagnosis: left knee MMT Post-op diagnosis: other (left knee mmt; left knee LMT) Procedure: Left knee with partial medial and lateral meniscectomy Surgeon: Deacon Medina MD Anesthesia: GETA and local Was an Clay Transporter used for this Procedure?: No Estimated blood loss (mL): 1 IV fluids (mL): 600 Pathology: none sent Condition: stable Disposition: PACU
--- NOTE | 2021-06-23 08:20 | W.PM.OPN ---
Operative Note Operative Note Date of Service: 06/23/21 Narrative: Pre-op diagnosis: left knee MMT Post-op diagnosis: other (left knee mmt; left knee LMT) Procedure: Left knee with partial medial and lateral meniscectomy Surgeon: Deacon Medina MD Anesthesia: GETA and local Was an Director Of Market Intelligence used for this Procedure?: No Estimated blood loss (mL): 1 IV fluids (mL): 600 Pathology: none sent Condition: stable Disposition: PACU Procedure in detail: Patient was brought to the operating room placed supine on the arthroscopic table and prepped and draped in standard sterile fashion. A time-out was called to identify proper site proper procedure proper surgeon and IV antibiotics per weight were administered. I began by exsanguinating the limb and insufflating tourniquet to 300 mm Hg. Then made a standard anterolateral stab incision. The knee was insufflated with saline and a 30 degree arthroscope was placed. There was grade 1 fibrillations of the patella but overall suprapatellar pouch was clean and the gutters were clean. I descended into the medial compartment where I made my medial portal under direct visualization. There was obvious of complex tear of the b posterior horn of the medial meniscus. Root was intact and there was grade 1 changes with some scattered grade 2 changes throughout the medial compartment and one area or [id number] G3 changes of the WB portion of the MFC. I used a combination of biter shaver and cautery to remove unstable portions of the meniscus and performed a gentle chondroplasty of the MFC. Approximally 20% meniscal volume was removed. Once I wassatisfied with this the ACL was examined and found to be intact and the lateral compartment was entered. There was an undersurface flap tear of the bosy of the lateral meniscus. A shaver was used to remove this flap and a probe was used to confirm stability of the meniscus. The lateral tibial plateau hasd some scattered G1 changes only. I took my final pictures and removed all instrumentation and closed the portals with skin glue. 25 mL of 2% Marcaine with epinephrine was injected into the joint and the surrounding soft tissues. Patient was then placed in sterile dressing extubated brought recovery room stable condition. There were no known complications.
[2021-06-23] MEDS: fentaNYL citrate/PF 100 MCG/2 ML VIAL 50 MCG IVPUSH (08:48)
[2021-06-23] MEDS: oxyCODONE HCl Immed Release 5 MG TABLET 10 MG PO (08:55)
[2021-06-23] MEDS: Acetaminophen 325 MG TABLET 650 MG PO (10:04)
== END 2021-06-23 11:23 | disposition home or self-care (01) ==
PROVIDERS: PCP Internal Medicine; Visit Provider Orthopaedic Surgery
PROC: (CPT 29870; principal; 2021-06-23 07:30)
DX: S83.232A Complex tear of medial meniscus, current injury, left knee, initial encounter (principal); S83.282A Other tear of lateral meniscus, current injury, left knee, initial encounter; M17.12 Unilateral primary osteoarthritis, left knee; I10 Essential (primary) hypertension; X58.XXXA Exposure to other specified factors, initial encounter; Y93.9 Activity, unspecified; Y92.9 Unspecified place or not applicable; Y99.9 Unspecified external cause status
CPT/HCPCS: 29880; J0171; J0690; J1100; J1885; J2250; J2405; J3010

== ENCOUNTER 2021-09-14 12:20 | Outpatient (REF) | payer OTHER, SELFPAY ==
--- NOTE | ~2021-09-14 | XR_ITS ---
EXAMINATION: XR FINGER, RIGHT CLINICAL INFORMATION: Pain COMPARISON: Previous x-ray August 2020 TECHNIQUE: Three views of the right fourth finger. FINDINGS: Bone alignment is normal. No fracture or dislocation is seen. There is osteoarthritis at the IP joints of the fourth finger and DIP joint of the fifth finger. There is mild periarticular soft tissue swelling adjacent to the PIP joint of the fourth finger. There is amputation of the second and third fingers. XR/XR finger RT min 2V IMPRESSION: Osteoarthritis of the fourth and fifth fingers. Periarticular soft tissue swelling adjacent to the PIP joint of the fourth finger.
== END 2021-09-14 12:21 | disposition home or self-care (01) ==
LOC: HO.LAB 12:20
PROVIDERS: PCP Internal Medicine; Visit Provider Internal Medicine
DX: M79.644 Pain in right finger(s) (principal)
CPT/HCPCS: 73140

== ENCOUNTER → 2021-10-04 09:22 | Outpatient (REF) | payer OTHER, SELFPAY | LOC: HO.SL 09:22 | PROVIDERS: PCP Internal Medicine; Visit Provider Internal Medicine | DX: G47.10 Hypersomnia, unspecified (principal); G47.33 Obstructive sleep apnea (adult) (pediatric) | CPT/HCPCS: 95806 ==

== ENCOUNTER → 2021-10-15 07:53 | Outpatient (REF) | payer OTHER, SELFPAY ==
--- NOTE | 2021-10-15 08:03 | CA_ITS ---
Transthoracic Echocardiogram Patient (Last, First, Middle): Xander Marin A Gender: Male Date of : 1960 Age: 60 Procedure Date: 10/15/2021 Procedure Type: Transthoracic Echocardiogram Location: OP Height: 165.1 cm Weight: 101.15 kg BSA: 2.07 m2 Heart Rate: bpm BP: 138 / 72 mmHg Food Safety Technician: VICKI Referring MD: Clarita Wynne MD Symptoms: I10 - Essential (primary) hypertension Study Quality: fair/Contrast ECG Rhythm: Sinus Conclusions: - The left ventricular systolic function is normal. The calculated ejection fraction is 58% by biplane method. - There is mild aortic valve stenosis. - Small plaque is seen in the sino tubular ridge. Findings Procedure Information Contrast agent, definity, is being given per protocol without apparent complications. Left Ventricle Normal left ventricular cavity size. There is normal left ventricular wall thickness. The left ventricular systolic function is normal. The calculated ejection fraction is 58% by biplane method. There is no evidence of regional wall motion abnormalities. Diastolic function is normal for age. Right Ventricle Normal right ventricular cavity size and systolic function. Atria The left atrium is normal in size. Aortic Valve The aortic valve was not well visualized. There is moderate calcification of the aortic valve. There is mild aortic valve stenosis. The mean gradient is 9 mmHg. The aortic valve area is 1.40 cm2. There is no aortic valve regurgitation. Mitral Valve The mitral valve appears normal. There is no mitral valve regurgitation. There is no mitral valve stenosis. Pulmonic Valve The pulmonic valve was not well visualized. Tricuspid Valve Normal tricuspid valve structure. There is trace tricuspid valve regurgitation. The pulmonary artery systolic pressure is normal. Great Vessels The aortic annulus, sinuses of valsalva, and asc aorta are normal in size. Small plaque is seen in the sino tubular ridge. Venous The inferior vena cava was not well visualized. The inferior vena cava is normal in size. Pericardium/Pleural There is no evidence of pericardial effusion. Prior Study Comparison No prior study available for comparison. Measurements 2D Linear Measurements IVSd: 0.98 0.6-0.9/0.6-1.0 cm LVIDd: 4.43 3.9-5.3/4.2-5.9 cm LVIDd Index: 2.14 2.4-3.2/2.2-3.1 cm/m2 LVIDs: 2.98 2.0-3.6 cm LVPWd: 0.95 0.7-1.1 cm Ao Root: 3.00 2.1-3.5 cm LA Diam: 3.70 2.7-3.8/3.0-4.0 cm LAIDs Index: 1.79 1.5-2.3 cm/m2 LV Mass: 176.88 67-162/88-224 g LV Mass Index: 85.45 43-95/49-115 g/m2 LVOT Diam: 2.00 3.0+(-)1.3 cm 2D Systolic Function EF 4C: 58.80 >55% EF 2C: 57.90 >55% EF BiP: 57.90 >55% Mitral Valve MV Pk E: 0.66 MV PK A: 0.85 MV Decel Time: 213.00 E/A: 0.80 E'Lateral: 7.40 E'Medial: 7.18 E/E' Med: 9.20 E/E' Lat: 9.00 PHT: 62.00 MVA PHT: 3.55 Decel Montague: 3.12 Aortic Valve AoV Pk Melvin: 2.11 AoV Mn Melvin: 1.38 AoV VTI: 0.43 AoV Pk Grad: 18.00 Aov Mn Grad: 9.00 AKIKO Cont.VTI: 1.40 LVOT LVOT Pk Melvin: 0.92 LVOT Mn Melvin: 0.63 LVOT VTI: 0.19 LVOT Pk Grad: 3.00 LVOT Mn Grad: 2.00 LVOT Diam: 2.00 LVOT Area: 3.14 Diastolic Function MV Pk E: 0.66 MV Pk A: 0.85 E/A: 0.80 E'Medial: 7.18 E/E' Med: 9.20 E' Laterial: 7.40 E/E' Lat: 9.00 Right Ventricle TAPSE (mm): 2.38 TVS' Melvin: 11.40 Tricuspid Valve TR Pk Melvin: 2.36 TR Pk Grad: 22.00 RA Press: 8.00 RVSP: 30.00 Great Vessels Aorta Ao Root-2D: 3.00 2.0-3.7 cm Ao Asc: 3.40 2.1-3.4 cm Ao Arch: 2.80 Updated in Other Vendor System with Status of Final Rodney Dia MD electronically signed on 10/16/2021 2:06:39 PM with status of Final
[2021-10-15 08:16] LABS: MANUAL DIFF FLAG NO
[2021-10-15 09:50] LABS: Basophils Absolute Auto 0.1 X10*3/uL (0.0-0.2); Basophils Percent Auto 0.8 % (0-2); Eosinophils Absolute Auto 0.4 X10*3/uL (0.0-0.4); Eosinophils Percent Auto 5.4 % (0-4); Hematocrit 38.7 % (42.0-52.0); Hemoglobin 12.6 g/dl (14.0-18.0); Imm Gran Abs Auto 0.03 X10*3/uL (0.00-0.03); Imm Gran Pct Auto 0.4 % (0.0-0.4); Immature Retic Fraction 13.5 % (2.3-13.4); Lymphocytes Absolute Auto 4.2 X10*3/uL (1.2-4.9); Lymphocytes Percent Auto 59.2 % (20-40); Mean Corpuscular HGB Conc 32.6 g/dl (31.0-36.0); Mean Corpuscular Hemoglobin 30.7 pg (27.0-33.0); Mean Corpuscular Volume 94.4 fL (80.0-98.0); Mean Platelet Volume 11.3 fL (9.4-12.4); Monocytes Absolute Auto 0.5 X10*3/uL (0.1-1.2); Monocytes Percent Auto 7.5 % (2-11); Neutrophils Absolute Auto 1.9 x10*3/uL (2.0-8.3); Neutrophils Percent Auto 26.7 % (45-73); Platelet Count 186 X10*3/uL (160-400); Red Cell Distribution Width 12.8 % (11.0-16.0); Retic HGB Equivalent 34.2 pg (30.0-35.0); Reticulocyte Percent 1.7 % (0.5-1.8); Reticulocytes Absolute 0.068 X10*6/uL (0.026-0.095); White Blood Count 7.1 X10*3/uL (4.8-10.8)
[2021-10-15 09:57] LABS: Estimated Average Glucose 194 mg/dL; Hemoglobin A1c % 8.4 %
[2021-10-15 10:44] LABS: Thyroid Stimulating Hormone 6.26 uIU/mL (0.32-4.0)
[2021-10-15 10:47] LABS: Alanine Aminotransferase 22 U/L (0-40); Alkaline Phosphatase 76 U/L (39-117); Anion Gap 10 (12-20); Aspartate Amino Transferase 23 U/L (5-37); Bilirubin Direct 0.2 mg/dL (0.0-0.5); Bilirubin Total 0.5 mg/dL (0.0-1.0); Blood Urea Nitrogen 19 mg/dL (9-16); Calcium 9.3 mg/dL (8.4-10.2); Carbon Dioxide 29 mmol/L (22-29); Chloride 100 mmol/L (96-108); Estimated Glomerular Filt Rate > 60; Glucose Random 249 mg/dL (60-115); Iron 84 mcg/dL (45-160); Percent Iron Saturation 21 % (15-50); Total Iron Binding Capacity 395 mcg/dL (228-428); Total Protein 7.6 g/dL (6.5-8.0); Unsaturated Iron Binding 311 ug/dL
[2021-10-15 11:02] LABS: Vitamin B12 309 pg/mL (200-900)
[2021-10-15 11:22] LABS: Sodium 135 mmol/L (135-145)
== END ==
LOC: HO.CARD 07:53
PROVIDERS: PCP Internal Medicine; Visit Provider Internal Medicine
DX: I10 Essential (primary) hypertension (principal); E11.65 Type 2 diabetes mellitus with hyperglycemia; E78.00 Pure hypercholesterolemia, unspecified; R79.89 Other specified abnormal findings of blood chemistry
CPT/HCPCS: 36415; 80053; 82248; 82607; 82746; 83036; 83540; 84439; 84443; 85025; 85045; 93306; Q9957

== ENCOUNTER → 2021-10-26 10:34 | Outpatient (BNVA) | payer OTHER, SELFPAY | PROVIDERS: PCP Internal Medicine; Visit Provider Orthopaedic Surgery | DX: M19.041 Primary osteoarthritis, right hand (principal); S68.620D Partial traumatic transphalangeal amputation of right index finger, subsequent encounter; S68.622D Partial traumatic transphalangeal amputation of right middle finger, subsequent encounter | CPT/HCPCS: 99212 ==

== ENCOUNTER 2021-11-23 11:17 | Emergency (ER) | payer MEDICARE, SELFPAY ==
[2021-11-23 12:03] VITALS: BP 143/101; PULSE 104; RESP 20; TEMP 37.1; O2SAT 95; BMI 36.2
[2021-11-23 12:18] LABS: Glucose, Whole Blood 501 mg/dL (60-115)
--- NOTE | 2021-11-23 12:18 | ED.RECABL ---
HPI - Recheck/Abnormal Lab/Rx General Chief Complaint: Recheck/Abnormal Lab/Rx Stated Complaint: High Blood Sugar Time Seen by Provider: 11/23/21 12:17 Source: patient Mode of arrival: ambulatory Limitations: no limitations History of Present Illness complaint: abnormal lab (BS on home glucometer has been reading HI at home) Initial visit (ago): day(s) (3) Returns today for: other (c/o polyuria/polydipsia dry mouth) Context: other (hx of pre-diabetes not on any medications but over the weekend developed hi sugars, polyuria/polydipsia) Associated symptoms: other (weakness, fatigue, not feeling well, drinking a lot and peeing a lot) Treatments prior to arrival: other (BS readings at home, states no events, eating okay, no infections, no new medications, no steroids) Related Data Previous Rx's Medication Instructions Recorded clobetasol 0.05 % topical ointment 1 applic TOPICAL BID PRN 14 Days 08/10/20 #15 g hydrochlorothiazide 12.5 mg tablet 12.5 mg PO QAM #30 tab 10/20/20 amlodipine 10 mg tablet 10 mg PO DAILY 90 Days #90 tab 02/12/21 metoprolol succinate 200 mg 200 mg PO DAILY #90 tab 05/26/21 tablet,extended release 24 hr crutch #2 ea 06/23/21 levothyroxine 137 mcg tablet 137 mcg PO QAM #90 tab 06/24/21 clobetasol 0.05 % topical cream See Rx Instructions TOPICAL BID 08/04/21 #15 g atorvastatin 20 mg tablet 20 mg PO DAILY 90 Days #90 tab 08/24/21 blood sugar diagnostic (FreeStyle #100 ea 08/24/21 Lite Strips) blood-glucose meter (FreeStyle #1 ea 08/24/21 Lite Meter) lancets 28 gauge (FreeStyle #100 ea 08/24/21 Lancets) omeprazole 20 mg capsule,delayed 20 mg PO DAILY #90 cap 08/24/21 release zolpidem 10 mg tablet 10 mg PO BEDTIME PRN 30 Days #14 08/24/21 tab tramadol 50 mg tablet 50 mg PO TID PRN 28 Days #112 tab 11/22/21 insulin glargine 100 unit/mL (3 10 unit (0.1 mL) SUBCUT QAM #3 ml 11/23/21 mL) subcutaneous pen (Lantus Solostar U-100 Insulin) metformin 500 mg tablet 500 mg PO BID #60 tab 11/23/21 Allergies Allergy/AdvReac Type Severity Reaction Status Date / Time lisinopril Allergy Severe cough Verified 10/26/21 10:59 Review of Systems Review of Systems: Constitutional : No Weight loss, No Fever, No Chills, pos Fatigue, pos Malaise ENT/Mouth : No sore throat, No Rhinorrhea Eyes: No Eye Pain, No Swelling, No Redness Cardiovascular : No Chest Pain, No SOB Respiratory : No Cough, No Sputum, No Wheezing Gastrointestinal : pos Nausea, No Vomiting, No Diarrhea, No Constipation, No abdominal Pain, No Hematochezia, No Melena Genitourinary : No Dysuria, pos Urinary Frequency, No Hematuria, Musculoskeletal : No joint pain, No Myalgias, No Joint Swelling Skin : No Skin Lesions, No rash Neuro : pos Weakness, No Numbness, No Dizziness, No Headache Psych : No Anxiety/Panic, No Depression Heme/Lymph: No Bruising, No Bleeding,No Lymphadenopathy Endocrine : pos Polyuria, pos Polydipsia All other systems reviewed and are negative PMFSH Past Medical History Attestation statement: The following information was validated with the patient. Medical History Chronic low back pain Effusion, left knee GERD (gastroesophageal reflux disease) (~04/15/21) History of COVID-19 History of herniated intervertebral disc History of temporal arteritis Hx of iron deficiency anemia Hypercholesterolemia Hypertension Hypothyroid Obesity (BMI 30-39.9) Obstructive sleep apnea On beta anival at home Osteoarthritis Psoriasis Renal calculi Surgical History History of arthroscopy of right knee History of cholecystectomy Hx of colonoscopy Hx of surgical amputation of finger Status post trigger finger release Total knee replacement status Family History Family History Father Colon cancer Mother Hypertension CVD (cardiovascular disease) Sister Breast cancer Mouth cancer Brother Throat cancer Social History Social History Housing: House Are you a primary floor care specialist to a significant other at home: No Do you presently have visiting nurse or other home services: No Alcohol intake: never Patient Tobacco Use Status: Never used Tobacco e-Cigarette/Vaping Use: Never Used Second Hand Smoke Exposure: No Use of substances other than those prescribed or required for medical reasons: No Advance Directives: No Advance Directives Information Provided: No service: No Current occupational status: disabled Current occupation: [employer] Physical Exam Vital Signs: Vital Signs: Last Vital Signs Temp 98.8 F 11/23/21 12:03 Pulse 96 11/23/21 14:48 Resp 16 11/23/21 14:48 BP 165/96 H 11/23/21 14:48 Pulse Ox 96 11/23/21 14:48 BMI result Body Mass Index 36.2 Appearance: Alert. Oriented X3. No acute distress. Eyes: Pupils equal, round and reactive to light. ENT: Pharynx dry mouth Neck: Normal inspection. Neck supple. CVS: Normal heart rate and rhythm. Pulses normal. Respiratory: No respiratory distress. Breath sounds normal. Abdomen: Soft and non-tender. Skin: Skin warm and dry. Normal skin color. Normal skin turgor. Extremities: No lower extremity edema. No calf ttp Neuro: Oriented X 3. No motor deficit. No sensory deficit. Course Course Course Narrative: good response to fluids and insulin BS down will start on metformin and 10 units of lantus in AM given his A1c just jumped from 8 to 12 in 1 month until he sees PCP MDM - Recheck/Abnormal Lab/Rx MDM Narrative Medical decision making narrative: 61 yo male with hx of pre-diabetes no prior medicines, RUBÉN, HLD, HTN, here with c/o trying to manage his diabetes with diet but over the weekend his glucometer was reading HI - he denies any preceding events, infections, change in diets, new medications. At this time he c/o weakness, polyuria and polydipsia. Will obtain labs, HgbA1C, UA, hydrate and IV insulin. Dispo per results and findings. Lab Data Result diagrams: 11/23/21 12:14 11/23/21 15:37 Labs: Lab Results 11/23/21 11/23/21 11/23/21 Range/Units 12:10 12:14 12:14 WBC 8.1 (4.8-10.8) X10*3/uL RBC 4.41 L (4.60-5.80) X10*6/uL Hgb 13.6 L (14.0-18.0) g/dl Hct 39.7 L (42.0-52.0) % MCV 90.0 (80.0-98.0) fL MCH 30.8 (27.0-33.0) pg MCHC 34.3 (31.0-36.0) g/dl RDW 12.1 (11.0-16.0) % Plt Count 154 L (160-400) X10*3/uL MPV 11.4 (9.4-12.4) fL Absolute Nucleated RBC 0.000 (0.0-0.012) X10*3/uL Nucleated RBC % (auto) 0.0 (0.0-0.2) /100WBC VBG pH (7.32-7.43) VBG pCO2 mmHg VBG pO2 mmHg VBG HCO3 (22-26) mmol/L VBG O2 Saturation % VBG Base Excess mmol/L Sodium 132 L (135-145) mmol/L Potassium 5.1 D (3.3-5.1) mmol/L Chloride 95 L (96-108) mmol/L Carbon Dioxide 24 (22-29) mmol/L Anion Gap 18 (12-20) BUN 33 H D (9-16) mg/dL Creatinine 1.43 H (0.5-1.4) mg/dL Estim Creat Clear Calc 55.9 Estimated GFR 50 POC Glucose 501 H* (60-115) mg/dL Random Glucose 575 H* (60-115) mg/dL Estimat Average Glucose mg/dL Hemoglobin A1c % % Calcium 10.4 H D (8.4-10.2) mg/dL Magnesium 2.0 (1.6-2.6) mg/dL Total Bilirubin 0.7 (0.0-1.0) mg/dL Direct Bilirubin 0.2 (0.0-0.5) mg/dL AST 28 (5-37) U/L ALT 29 (0-40) U/L Alkaline Phosphatase 107 D (39-117) U/L Total Protein 8.3 H (6.5-8.0) g/dL Albumin 4.4 (3.5-5.0) g/dL Urine Color Urine Appearance Urine pH (5.0-8.0) Ur Specific [place] (1.005-1.025) Urine Protein (NEG-TRACE) MG/DL Urine Glucose (UA) (NEG) MG/DL Urine Ketones (NEG) MG/DL Urine Blood (NEG) Urine Nitrite (NEG) Ur Leukocyte Esterase (NEG) Urine RBC (0) /HPF Urine WBC (0-4) /HPF Ur Squamous Epith Cells /LPF Urine Bacteria /LPF Acetone, Qual (Negative) 11/23/21 11/23/21 11/23/21 Range/Units 12:43 12:43 12:47 WBC (4.8-10.8) X10*3/uL RBC (4.60-5.80) X10*6/uL Hgb (14.0-18.0) g/dl Hct (42.0-52.0) % MCV (80.0-98.0) fL MCH (27.0-33.0) pg MCHC (31.0-36.0) g/dl RDW (11.0-16.0) % Plt Count (160-400) X10*3/uL MPV (9.4-12.4) fL Absolute Nucleated RBC (0.0-0.012) X10*3/uL Nucleated RBC % (auto) (0.0-0.2) /100WBC VBG pH 7.38 (7.32-7.43) VBG pCO2 34 mmHg VBG pO2 169 mmHg VBG HCO3 20 L (22-26) mmol/L VBG O2 Saturation 99.0 % VBG Base Excess -3.3 mmol/L Sodium (135-145) mmol/L Potassium (3.3-5.1) mmol/L Chloride (96-108) mmol/L Carbon Dioxide (22-29) mmol/L Anion Gap (12-20) BUN (9-16) mg/dL Creatinine (0.5-1.4) mg/dL Estim Creat Clear Calc Estimated GFR POC Glucose (60-115) mg/dL Random Glucose (60-115) mg/dL Estimat Average Glucose 315 mg/dL Hemoglobin A1c % 12.6 % Calcium (8.4-10.2) mg/dL Magnesium (1.6-2.6) mg/dL Total Bilirubin (0.0-1.0) mg/dL Direct Bilirubin (0.0-0.5) mg/dL AST (5-37) U/L ALT (0-40) U/L Alkaline Phosphatase (39-117) U/L Total Protein (6.5-8.0) g/dL Albumin (3.5-5.0) g/dL Urine Color Urine Appearance Urine pH (5.0-8.0) Ur Specific [place] (1.005-1.025) Urine Protein (NEG-TRACE) MG/DL Urine Glucose (UA) (NEG) MG/DL Urine Ketones (NEG) MG/DL Urine Blood (NEG) Urine Nitrite (NEG) Ur Leukocyte Esterase (NEG) Urine RBC (0) /HPF Urine WBC (0-4) /HPF Ur Squamous Epith Cells /LPF Urine Bacteria /LPF Acetone, Qual Negative (Negative) 11/23/21 11/23/21 11/23/21 Range/Units 14:22 15:37 15:37 WBC (4.8-10.8) X10*3/uL RBC (4.60-5.80) X10*6/uL Hgb (14.0-18.0) g/dl Hct (42.0-52.0) % MCV (80.0-98.0) fL MCH (27.0-33.0) pg MCHC (31.0-36.0) g/dl RDW (11.0-16.0) % Plt Count (160-400) X10*3/uL MPV (9.4-12.4) fL Absolute Nucleated RBC (0.0-0.012) X10*3/uL Nucleated RBC % (auto) (0.0-0.2) /100WBC VBG pH (7.32-7.43) VBG pCO2 mmHg VBG pO2 mmHg VBG HCO3 (22-26) mmol/L VBG O2 Saturation % VBG Base Excess mmol/L Sodium 137 (135-145) mmol/L Potassium 4.0 D (3.3-5.1) mmol/L Chloride 103 (96-108) mmol/L Carbon Dioxide 24 (22-29) mmol/L Anion Gap 14 (12-20) BUN 26 H (9-16) mg/dL Creatinine 1.10 (0.5-1.4) mg/dL Estim Creat Clear Calc 72.6 Estimated GFR > 60 POC Glucose 337 H (60-115) mg/dL Random Glucose 337 H D (60-115) mg/dL Estimat Average Glucose mg/dL Hemoglobin A1c % % Calcium 9.2 D (8.4-10.2) mg/dL Magnesium (1.6-2.6) mg/dL Total Bilirubin (0.0-1.0) mg/dL Direct Bilirubin (0.0-0.5) mg/dL AST (5-37) U/L ALT (0-40) U/L Alkaline Phosphatase (39-117) U/L Total Protein (6.5-8.0) g/dL Albumin (3.5-5.0) g/dL Urine Color STRAW Urine Appearance CLEAR Urine pH 5.5 (5.0-8.0) Ur Specific [place] 1.025 (1.005-1.025) Urine Protein NEG (NEG-TRACE) MG/DL Urine Glucose (UA) >=1000 H (NEG) MG/DL Urine Ketones >=80 (NEG) MG/DL Urine Blood TRACE (NEG) Urine Nitrite NEG (NEG) Ur Leukocyte Esterase NEG (NEG) Urine RBC 1-4 (0) /HPF Urine WBC 0 (0-4) /HPF Ur Squamous Epith Cells TRACE /LPF Urine Bacteria NONE /LPF Acetone, Qual (Negative) Discharge Plan Discharge Clinical Impression: Acute hyperglycemia, DAVIAN (acute kidney injury), Type 2 diabetes mellitus with hyperglycemia Patient Disposition: Home, Self-Care Instructions: Acute Kidney Injury (DC), Dialysis Diet (DC), Diabetic Hyperglycemia (ED) Additional Instructions: return to ED for any worsening symptoms or concerns your blood sugar is high and has increased over the past month check your blood sugars in AM prior to insulin dose and before bed as well as before meals Prescriptions: New metformin 500 mg tablet 500 mg PO BID Qty: 60 0RF Lantus Solostar U-100 Insulin 100 unit/mL (3 mL) insulin pen 10 unit subcut QAM Qty: 3 0RF No Action clobetasol 0.05 % ointment 1 applic topical BID PRN (Reason: rash) 14 Days Qty: 15 1RF hydrochlorothiazide 12.5 mg tablet 12.5 mg PO QAM Qty: 30 11RF amlodipine 10 mg tablet 10 mg PO DAILY 90 Days Qty: 90 3RF metoprolol succinate 200 mg tablet extended release 24 hr 200 mg PO DAILY Qty: 90 2RF levothyroxine 137 mcg tablet 137 mcg PO QAM Qty: 90 2RF clobetasol 0.05 % cream See Rx Instructions topical BID Qty: 15 0RF Rx Instructions: apply affected area topical 2 times a day; omeprazole 20 mg capsule,delayed release(DR/EC) 20 mg PO DAILY Qty: 90 0RF tramadol 50 mg tablet 50 mg PO TID PRN (Reason: pain) 28 Days Qty: 112 0RF (DME) crutch Misc See Rx Instructions .Route Qty: 2 0RF Rx Instructions: As directed atorvastatin 20 mg tablet 20 mg PO DAILY 90 Days Qty: 90 2RF (DME) blood-glucose meter [FreeStyle Lite Meter] Kit See Rx Instructions .ROUTE .MEDSUPPLY Qty: 1 0RF Rx Instructions: As directed (DME) lancets [FreeStyle Lancets] 28 gauge misc See Rx Instructions .ROUTE .MEDSUPPLY Qty: 100 3RF Rx Instructions: As directed check BS QD (DME) FreeStyle Lite Strips Strip See Rx Instructions .ROUTE .MEDSUPPLY Qty: 100 3RF Rx Instructions: As directed check the BS QD zolpidem 10 mg tablet 10 mg PO BEDTIME PRN (Reason: sleep) 30 Days Qty: 14 2RF Referrals: Clarita Wynne MD [Primary Care Provider] - 1 day Stand Alone Forms: Work/School Release Interventions: ED Discharge Assessment Last Done: 11/23/21 16:57 Discharge Date/Time: 11/23/21 16:58
[2021-11-23 12:20] LABS: Hematocrit 39.7 % (42.0-52.0); Hemoglobin 13.6 g/dl (14.0-18.0); Mean Corpuscular HGB Conc 34.3 g/dl (31.0-36.0); Mean Corpuscular Hemoglobin 30.8 pg (27.0-33.0); Mean Platelet Volume 11.4 fL (9.4-12.4); Platelet Count 154 X10*3/uL (160-400); Red Blood Count 4.41 X10*6/uL (4.60-5.80); Red Cell Distribution Width 12.1 % (11.0-16.0); White Blood Count 8.1 X10*3/uL (4.8-10.8)
[2021-11-23 12:40] LABS: Anion Gap 18 (12-20); Blood Urea Nitrogen 33 mg/dL (9-16); Calcium 10.4 mg/dL (8.4-10.2); Carbon Dioxide 24 mmol/L (22-29); Chloride 95 mmol/L (96-108); Creatinine Clr Calc Pharmacy 55.9; Estimated Glomerular Filt Rate 50; Glucose Random 575 mg/dL (60-115); Potassium 5.1 mmol/L (3.3-5.1); Sodium 132 mmol/L (135-145)
[2021-11-23] MEDS: Insulin Regular, Human 100 UNIT/ML 3 ML VIAL IVPUSH (12:53)
[2021-11-23] MEDS: 0.9 % Sodium Chloride 1,000 ML 999 ML IV ×3 (12:53→14:54)
[2021-11-23 12:55] LABS: VBG Base Excess -3.3 mmol/L; VBG HCO3 20 mmol/L (22-26); VBG pCO2 34 mmHg; VBG pH 7.38 (7.32-7.43); VBG pO2 169 mmHg
[2021-11-23 12:56] LABS: Venous Blood Gas Refer to POC result
[2021-11-23 13:03] LABS: Estimated Average Glucose 315 mg/dL; Hemoglobin A1c % 12.6 %
[2021-11-23 13:04] LABS: Acetone, serum QL Negative (Negative)
[2021-11-23 13:05] VITALS: BP 178/99; PULSE 99; RESP 16; O2SAT 97
[2021-11-23 13:52] LABS: Alanine Aminotransferase 29 U/L (0-40); Albumin Level 4.4 g/dL (3.5-5.0); Alkaline Phosphatase 107 U/L (39-117); Aspartate Amino Transferase 28 U/L (5-37); Bilirubin Direct 0.2 mg/dL (0.0-0.5); Bilirubin Total 0.7 mg/dL (0.0-1.0); Total Protein 8.3 g/dL (6.5-8.0)
[2021-11-23 14:26] LABS: Glucose, Whole Blood 337 mg/dL (60-115)
[2021-11-23 14:48] VITALS: BP 165/96; PULSE 96; RESP 16; O2SAT 96
--- NOTE | 2021-11-23 14:55 | PC.NURSE ---
Repeat POC 300s, Second liter infusing. Only two to be given, 1 liter documented infused in error. Pt resting comfortably, reports INSURANCE CLAIMS CLERK sx includes dry mouth, thirst and n/v
[2021-11-23 16:01] LABS: Anion Gap 14 (12-20); Appearance Urine CLEAR; Blood Urea Nitrogen 26 mg/dL (9-16); Calcium 9.2 mg/dL (8.4-10.2); Carbon Dioxide 24 mmol/L (22-29); Chloride 103 mmol/L (96-108); Color Urine STRAW; Creatinine Clr Calc Pharmacy 72.6; Estimated Glomerular Filt Rate > 60; Glucose Random 337 mg/dL (60-115); Glucose Urine UA >=1000 MG/DL (NEG); Leukocyte Esterase Urine NEG (NEG); Nitrite Urine NEG (NEG); PH 5.5 (5.0-8.0); Sodium 137 mmol/L (135-145); Specific Gravity - Urine 1.025 (1.005-1.025); UACC Culture Trigger NO; Urine Blood TRACE (NEG); Urine Ketones >=80 MG/DL (NEG); Urine Protein NEG (NEG-TRACE)
[2021-11-23 16:03] LABS: Squamous Epithelial Cell Urine TRACE /LPF; WBC Urine 0 /HPF (0-4)
== END 2021-11-23 16:58 | disposition home or self-care (01) ==
PROVIDERS: Emergency Provider Emergency Medicine; PCP Internal Medicine
DX: E11.65 Type 2 diabetes mellitus with hyperglycemia (principal); N17.9 Acute kidney failure, unspecified; I10 Essential (primary) hypertension; E78.00 Pure hypercholesterolemia, unspecified; Z79.02 Long term (current) use of antithrombotics/antiplatelets
CPT/HCPCS: 36415; 80048; 80076; 81001; 82009; 82803; 82947; 83036; 83735; 85027; 96361; 96374; 99284; 99285

== ENCOUNTER 2021-12-13 10:53 | Day surgery (SDC) | payer MEDICARE, SELFPAY ==
[2021-12-08 09:55] VITALS: BMI 35.3
--- NOTE | 2021-12-10 08:30 | P.CONAN_ITS ---
Documented by User: Louisa Akins NP 12/10/21 08:34 HPI - Anesthesia Eval Consult details Narrative: 61yo M for Upper Endoscopy and Colonoscopy [facility] Active Problems Active Problems: All Active Problems (Updated 12/02/21 @ 16:21 by Clarita Wynne MD) Osteoarthritis of right hand (Acute) COVID-19 (Acute) Tear of meniscus of left knee (Acute) H/O left knee surgery (Acute) Type 2 diabetes mellitus with hyperglycemia (Acute) Colon cancer screening (Acute) Hypersomnia (Acute) Renal insufficiency (Acute) Mild aortic stenosis (Acute) Hypertension (Acute) Chronic low back pain (Acute) Hypothyroid (Acute) Obesity (BMI 30-39.9) (Acute) GERD (gastroesophageal reflux disease) (Acute ~04/15/21) Hypercholesterolemia (Acute) Psoriasis (Acute) Obstructive sleep apnea (Acute) Past Medical History Medical History (Updated 12/10/21 @ 08:34 by Louisa Akins NP) Chronic low back pain Dysphagia Finger pain, right GERD (gastroesophageal reflux disease) (~04/15/21) History of COVID-19 History of herniated intervertebral disc History of temporal arteritis Hx of iron deficiency anemia Hypercholesterolemia Hypertension Hypothyroid Obesity (BMI 30-39.9) Obstructive sleep apnea On beta anival at home Osteoarthritis 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 Psoriasis Renal calculi Type 2 diabetes mellitus with hyperglycemia Witnessed apneic spells Family History Family History Father Colon cancer Mother Hypertension CVD (cardiovascular disease) Sister Breast cancer Mouth cancer Brother Throat cancer Family history of problems with anesthesia: No Surgical History Surgical History (Updated 12/08/21 @ 09:55 by Sherin Roy RN) History of arthroscopy of right knee History of cholecystectomy History of esophagogastroduodenoscopy (EGD) Hx of arthroscopy of left knee Hx of colonoscopy Hx of hand surgery Hx of surgical amputation of finger Status post trigger finger release Total knee replacement status History of Problems with Anesthesia: No Social History Social History Housing: House Are you a primary acute care registered nurse to a significant other at home: No Do you presently have visiting nurse or other home services: No Alcohol intake: never Patient Tobacco Use Status: Never used Tobacco e-Cigarette/Vaping Use: Never Used Second Hand Smoke Exposure: No Advance Directives: No Advance Directives Information Provided: Yes service: No Current occupational status: disabled Current occupation: [employer] Cognitive needs: No Hearing needs: No Vision needs: No Meds Allergies Allergy/AdvReac Type Severity Reaction Status Date / Time lisinopril Allergy Severe cough Verified 12/02/21 15:31 Exam Exam Date and Time: December 10, 2021 0830 Height,Weight and Vital Signs: Height 5 ft 4 in Weight 93.44 kg Pertinent Lab Results Pertinent Lab Results: Laboratory Tests 11/23/21 11/23/21 12:14 15:37 WBC 8.1 Hgb 13.6 L Hct 39.7 L Plt Count 154 L Sodium 137 Potassium 4.0 D Chloride 103 Carbon Dioxide 24 BUN 26 H Creatinine 1.10 Narrative Narrative: ECHO 10/2021 Conclusions: - The left ventricular systolic function is normal.? The ? calculated ejection fraction is 58% by biplane method. ? - There is mild aortic valve stenosis. ? - Small plaque is seen in the sino tubular ridge.? ?? EKG 01/2021 Vent. Rate : 075 BPM ? ? Atrial Rate : 075 BPM ?? P-R Int : 174 ms? QRS Dur : 084 ms ? ? QT Int : 350 ms ? ? ? P-R-T Axes : 056 000 036 degrees ?? QTc Int : 390 ms ? Normal sinus rhythm Normal ECG When compared with ECG of 01-APR-2016 11:49, No significant change was found Assessment and Plan Final Anesthetic Review Family History of Problems with Anesthesia: No History of Problems with Anesthesia: No Documented by User: Teodora Kramer MD 12/13/21 11:38 [facility] Past Medical History Medical History (Updated 12/10/21 @ 08:34 by Louisa Akins NP) Chronic low back pain Dysphagia Finger pain, right GERD (gastroesophageal reflux disease) (~04/15/21) History of COVID-19 History of herniated intervertebral disc History of temporal arteritis Hx of iron deficiency anemia Hypercholesterolemia Hypertension Hypothyroid Obesity (BMI 30-39.9) Obstructive sleep apnea On beta anival at home Osteoarthritis 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 Psoriasis Renal calculi Type 2 diabetes mellitus with hyperglycemia Witnessed apneic spells Family History Family History Father Colon cancer Mother Hypertension CVD (cardiovascular disease) Sister Breast cancer Mouth cancer Brother Throat cancer Surgical History Surgical History (Updated 12/08/21 @ 09:55 by Sherin Roy RN) History of arthroscopy of right knee History of cholecystectomy History of esophagogastroduodenoscopy (EGD) Hx of arthroscopy of left knee Hx of colonoscopy Hx of hand surgery Hx of surgical amputation of finger Status post trigger finger release Total knee replacement status Social History Social History Housing: House Are you a primary acute care registered nurse to a significant other at home: No Do you presently have visiting nurse or other home services: No Alcohol intake: never Patient Tobacco Use Status: Never used Tobacco e-Cigarette/Vaping Use: Never Used Second Hand Smoke Exposure: No Advance Directives: No Advance Directives Information Provided: Yes service: No Current occupational status: disabled Current occupation: [employer] Cognitive needs: No Hearing needs: No Vision needs: No Meds Allergies Allergy/AdvReac Type Severity Reaction Status Date / Time lisinopril Allergy Severe cough Verified 12/02/21 15:31 Exam Airway Mallampati Class: II (Missing 2 teeth) TM Dist: >3cm Neck ROM: Full Heart: rrr Lungs: cta Assessment and Plan Assessment Anesthesia Assessment: Anesthesia Plan Discussed and Chart Reviewed Final Anesthetic Review NPO: Yes ASA Class: III Final Preanesthetic Review: No Changes in Pt Med Stat, Meds/Allgs Chart Reviewed and Consent Obtained/Reviewed Patient Risk: Intermediate Procedure Risk: Intermediate Anesthetic Plan Anesthetic Plan: MAC: Disposition: Standard PACU
[2021-12-13 11:50] VITALS: BP 146/86; PULSE 85; RESP 16; TEMP 36.7; O2SAT 96; BMI 35.3
[2021-12-13 12:02] LABS: Glucose, Whole Blood 148 mg/dL (60-115)
[2021-12-13] MEDS: Lactated Ringers 1,000 ML 100 ML IVCONT (12:04)
[2021-12-13 13:40] VITALS: BP 116/77; PULSE 85; RESP 20; TEMP 36.1; O2SAT 94
--- NOTE | 2021-12-13 13:46 | P.BOP_ITS ---
Brief Operative Note Date of Service: 12/13/21 Pre-op diagnosis: GERD, Screening Post-op diagnosis: other (Hiatal hernia, Colon polyps) Procedure: EGD with biopsies, Colonoscopy to the cecum and TI with cold snare polypectomy x 2 Surgeon: Maksim Kulkarni Anesthesia: MAC Was an Revenue Cycle Consultant used for this Procedure?: No Estimated blood loss (mL): 2.0 Pathology: other (A. EG Junction at 36cm B. Ascending colon polyp C. Polyp at 30cm) Condition: stable Disposition: PACU
[2021-12-13 13:55] VITALS: BP 128/73; PULSE 80; RESP 20; TEMP 36.1; O2SAT 94
--- NOTE | 2021-12-14 00:06 | OP_ITS ---
SURGEON: Maksim Kulkarni MD INDICATIONS: The patient presents for evaluation of gastroesophageal reflux, family history of colon cancer, and colorectal cancer screening. Full consent has been obtained from him for both procedures, including risks of bleeding and perforation. PREOPERATIVE DIAGNOSIS: POSTOPERATIVE DIAGNOSIS: PROCEDURE PERFORMED: Esophagogastroduodenoscopy with biopsies, and colonoscopy to the cecum and terminal ileum with cold snare polypectomy x2. ESTIMATED BLOOD LOSS: COMPLICATIONS: ANESTHESIA: Medication used, monitored anesthesia care. ASSISTANTS: SPECIMENS: PREOPERATIVE DIAGNOSES: Gastroesophageal reflux, family history of colon cancer, colorectal cancer screening. POSTOPERATIVE DIAGNOSES: Gastroesophageal reflux, family history of colon cancer, colorectal cancer screening, small hiatal hernia, colon polyps, diverticulosis, and internal hemorrhoids. DESCRIPTION OF PROCEDURE: The patient was placed in the left lateral decubitus position. The Olympus video gastroscope was passed in the posterior oropharynx and upper esophagus under direct vision. The scope was passed slowly into the distal esophagus. The gastroesophageal junction appeared at 36 cm. There was no sign of any esophagitis nor any definitive evidence of Parrish's mucosa. There was some very minimal irregularity. The scope entered into the stomach. There was a small hiatal hernia. The scope was advanced to the pylorus and the duodenum was cannulated to the descending portion. The duodenum including the bulb appeared normal without mass or ulceration. The scope was withdrawn back to the stomach. The gastric antrum and body appeared normal with good peristalsis. The scope was retroflexed visualizing the proximal stomach carefully, which appeared normal, without any sign of mass or ulceration. The scope was straightened and withdrawn back to the esophagus. Biopsies were obtained at the EG junction at 36 cm proximal to that, the esophageal mucosa appeared normal. The scope was withdrawn from the patient. He was turned around for the colonoscopy. The digital rectal exam revealed no abnormalities. The Olympus video pediatric colonoscope was entered into the rectum and advanced to the cecum with the assistance of abdominal wall pressure. Once in the cecum, I did identify normal-appearing cecal pouch with appendiceal orifice and a normal-appearing ileocecal valve. The terminal ileum was cannulated and appeared normal. The scope was withdrawn back in the colon. The entire cecum and ileocecal valve appeared normal. The scope was slowly withdrawn assessing all mucosal surfaces carefully. Preparation was excellent. In the ascending colon and at 30 cm were slightly raised approximately 5 or 6 mm polyps, which were each removed completely with cold snare polypectomy. There was no sign of any residual polyp nor any significant bleeding. I did not visualize any other polyps, colitis, nor angiodysplasia. There was a mild amount of sigmoid diverticulosis. In the rectum, scope was retroflexed visualizing some small internal hemorrhoids, but no other pathology. The rectal mucosa appeared normal. Scope was straightened and withdrawn from the patient. He tolerated both procedures well and was returned to the recovery area in stable condition. IMPRESSION: 1. Small hiatal hernia, gastroesophageal reflux. 2. Colon polyps. 3. Diverticulosis. 4. Internal hemorrhoids. PLAN: The results of the pathology will be checked. Even if the polyps are not tubular adenoma, I would recommend a followup coloscopy in 5 years for further screening given the family history of colon cancer in his father. He was advised to continue his omeprazole for symptomatic relief of reflux. He was advised not to use any aspirin or NSAIDs for 1 week. He would otherwise see me on a p.r.n. basis. MD JUDITH Buck/SANTO / [id number]
== END 2021-12-13 14:38 | disposition home or self-care (01) ==
PROVIDERS: PCP Internal Medicine; Visit Provider Internal Medicine
PROC: (CPT 45385; principal; 2021-12-13 12:10)
DX: Z12.11 Encounter for screening for malignant neoplasm of colon (principal); Z80.0 Family history of malignant neoplasm of digestive organs; D12.2 Benign neoplasm of ascending colon; D12.5 Benign neoplasm of sigmoid colon; K57.30 Diverticulosis of large intestine without perforation or abscess without bleeding; K64.8 Other hemorrhoids; R13.14 Dysphagia, pharyngoesophageal phase; K21.9 Gastro-esophageal reflux disease without esophagitis; K44.9 Diaphragmatic hernia without obstruction or gangrene; G47.33 Obstructive sleep apnea (adult) (pediatric); I10 Essential (primary) hypertension; R73.03 Prediabetes; E03.9 Hypothyroidism, unspecified; E78.5 Hyperlipidemia, unspecified; Z79.899 Other long term (current) drug therapy
CPT/HCPCS: 45385; 43239; 82947; 88305

== ENCOUNTER 2022-01-05 07:48 | Outpatient (REF) | payer OTHER, SELFPAY ==
[2022-01-05 08:20] LABS: MANUAL DIFF FLAG NO
[2022-01-05 08:38] LABS: Basophils Absolute Auto 0.1 X10*3/uL (0.0-0.2); Basophils Percent Auto 0.8 % (0-2); Eosinophils Absolute Auto 0.3 X10*3/uL (0.0-0.4); Eosinophils Percent Auto 4.3 % (0-4); Hematocrit 38.9 % (42.0-52.0); Hemoglobin 12.8 g/dl (14.0-18.0); Imm Gran Abs Auto 0.01 X10*3/uL (0.00-0.03); Imm Gran Pct Auto 0.2 % (0.0-0.4); Lymphocytes Absolute Auto 3.4 X10*3/uL (1.2-4.9); Lymphocytes Percent Auto 54.2 % (20-40); Mean Corpuscular HGB Conc 32.9 g/dl (31.0-36.0); Mean Corpuscular Hemoglobin 30.5 pg (27.0-33.0); Mean Corpuscular Volume 92.8 fL (80.0-98.0); Mean Platelet Volume 10.5 fL (9.4-12.4); Monocytes Absolute Auto 0.5 X10*3/uL (0.1-1.2); Monocytes Percent Auto 8.4 % (2-11); Neutrophils Percent Auto 32.1 % (45-73); Platelet Count 224 X10*3/uL (160-400); Red Blood Count 4.19 X10*6/uL (4.60-5.80); Red Cell Distribution Width 12.7 % (11.0-16.0); White Blood Count 6.3 X10*3/uL (4.8-10.8)
[2022-01-05 09:12] LABS: Alanine Aminotransferase 25 U/L (0-40); Albumin Level 4.2 g/dL (3.5-5.0); Alkaline Phosphatase 74 U/L (39-117); Anion Gap 12 (12-20); Aspartate Amino Transferase 21 U/L (5-37); Blood Urea Nitrogen 10 mg/dL (9-16); Calcium 9.2 mg/dL (8.4-10.2); Carbon Dioxide 29 mmol/L (22-29); Chloride 104 mmol/L (96-108); Cholesterol 165 mg/dL; Estimated Glomerular Filt Rate > 60; Glucose Fasting 125 mg/dL (60-99); HDL Cholesterol 43 mg/dL; LDL Cholesterol Calculated 103 mg/dl; Potassium 4.3 mmol/L (3.3-5.1); Sodium 141 mmol/L (135-145); Total Protein 7.3 g/dL (6.5-8.0); Triglycerides 95 mg/dL
[2022-01-05 09:35] LABS: Free T4 (Free Thyroxine) 1.17 ng/dL (0.71-1.85); Thyroid Stimulating Hormone 0.24 uIU/mL (0.32-4.0)
== END 2022-01-05 07:49 | disposition home or self-care (01) ==
LOC: HO.LAB 07:48
PROVIDERS: PCP Internal Medicine; Visit Provider Internal Medicine
DX: E78.00 Pure hypercholesterolemia, unspecified (principal); E03.9 Hypothyroidism, unspecified; I10 Essential (primary) hypertension
CPT/HCPCS: 36415; 80053; 80061; 84439; 84443; 85025

== ENCOUNTER → 2022-01-18 13:45 | Outpatient (BNVA) | payer OTHER, SELFPAY | PROVIDERS: PCP Internal Medicine; Visit Provider Orthopaedic Surgery | DX: M19.041 Primary osteoarthritis, right hand (principal); E11.9 Type 2 diabetes mellitus without complications | CPT/HCPCS: 99212 ==

== ENCOUNTER 2022-02-15 08:02 | Outpatient (REF) | payer OTHER, SELFPAY ==
[2022-02-15 08:24] LABS: MANUAL DIFF FLAG NO
[2022-02-15 08:56] LABS: Basophils Percent Auto 0.6 % (0-2); Eosinophils Absolute Auto 0.3 X10*3/uL (0.0-0.4); Eosinophils Percent Auto 3.6 % (0-4); Hematocrit 37.2 % (42.0-52.0); Hemoglobin 12.3 g/dl (14.0-18.0); Imm Gran Abs Auto 0.01 X10*3/uL (0.00-0.03); Imm Gran Pct Auto 0.1 % (0.0-0.4); Lymphocytes Absolute Auto 3.8 X10*3/uL (1.2-4.9); Lymphocytes Percent Auto 54.1 % (20-40); Mean Corpuscular HGB Conc 33.1 g/dl (31.0-36.0); Mean Corpuscular Hemoglobin 30.2 pg (27.0-33.0); Mean Corpuscular Volume 91.4 fL (80.0-98.0); Mean Platelet Volume 10.7 fL (9.4-12.4); Monocytes Absolute Auto 0.5 X10*3/uL (0.1-1.2); Monocytes Percent Auto 7.7 % (2-11); Neutrophils Absolute Auto 2.4 x10*3/uL (2.0-8.3); Neutrophils Percent Auto 33.9 % (45-73); Platelet Count 199 X10*3/uL (160-400); Red Blood Count 4.07 X10*6/uL (4.60-5.80); Red Cell Distribution Width 13.2 % (11.0-16.0)
[2022-02-15 08:59] LABS: Estimated Average Glucose 166 mg/dL; Hemoglobin A1c % 7.4 %
[2022-02-15 09:18] LABS: Anion Gap 10 (12-20); Blood Urea Nitrogen 16 mg/dL (9-16); Carbon Dioxide 29 mmol/L (22-29); Chloride 106 mmol/L (96-108); Estimated Glomerular Filt Rate > 60; Glucose Random 129 mg/dL (60-115); Potassium 3.8 mmol/L (3.3-5.1); Sodium 141 mmol/L (135-145)
== END 2022-02-15 08:03 | disposition home or self-care (01) ==
LOC: HO.LAB 08:02
PROVIDERS: PCP Internal Medicine; Visit Provider Internal Medicine
DX: E11.65 Type 2 diabetes mellitus with hyperglycemia (principal)
CPT/HCPCS: 36415; 80048; 83036; 85025

== ENCOUNTER → 2022-02-24 13:34 | Outpatient (BNVA) | payer SELFPAY | PROVIDERS: PCP Internal Medicine; Visit Provider Physician Assistant | DX: Z02.79 Encounter for issue of other medical certificate (principal) ==

== ENCOUNTER 2022-03-02 11:03 | Outpatient (REF) | payer OTHER, SELFPAY ==
[2022-03-02 11:58] LABS: Estimated Average Glucose 151 mg/dL; Hemoglobin A1c % 6.9 %
[2022-03-02 12:30] LABS: Thyroid Stimulating Hormone 0.63 uIU/mL (0.32-4.0); Vitamin D 25-OH Total 34.3 ng/mL (>30)
[2022-03-02 13:58] LABS: Appearance Urine CLEAR; Color Urine YELLOW; Glucose Urine UA NEG (NEG); Leukocyte Esterase Urine NEG (NEG); Nitrite Urine NEG (NEG); PH 5.5 (5.0-8.0); Specific Gravity - Urine >= 1.030 (1.005-1.025); Urine Blood NEG (NEG); Urine Ketones NEG (NEG); Urine Protein NEG (NEG-TRACE)
[2022-03-02 14:45] LABS: Creatinine Urine 139.77 mg/dL; Microalbum/Creatinine Ratio Ur 65.1 ug/mg cr
== END 2022-03-02 11:04 | disposition home or self-care (01) ==
LOC: HO.LAB 11:03
PROVIDERS: Internal Medicine; PCP Internal Medicine; Visit Provider Internal Medicine
DX: E03.9 Hypothyroidism, unspecified (principal); E55.9 Vitamin D deficiency, unspecified; I10 Essential (primary) hypertension; E11.9 Type 2 diabetes mellitus without complications
CPT/HCPCS: 36415; 81003; 82043; 82306; 83036; 84439; 84443

== ENCOUNTER → 2022-03-23 13:49 | Outpatient (BNVA) | payer OTHER, SELFPAY | PROVIDERS: PCP Internal Medicine; Visit Provider Orthopaedic Surgery | DX: M19.041 Primary osteoarthritis, right hand (principal) | CPT/HCPCS: 99212 ==

== ENCOUNTER → 2022-04-11 05:46 | Day surgery (SDC) | payer OTHER, SELFPAY ==
--- NOTE | 2022-04-08 08:30 | P.CONAN_ITS ---
Documented by User: Louisa Akins NP 04/08/22 08:31 HPI - Anesthesia Eval Consult details Narrative: 61yo M for Right Ring Finger PIP Arthrodesis PMFSH Active Problems Active Problems: All Active Problems (Updated 03/10/22 @ 11:11 by Clarita Wynne MD) Hypercholesterolemia (Acute) Type 2 diabetes mellitus with hyperglycemia (Acute) Osteoarthritis of right hand (Acute) COVID-19 (Acute) Tear of meniscus of left knee (Acute) H/O left knee surgery (Acute) Colon cancer screening (Acute) Hypersomnia (Acute) Renal insufficiency (Acute) Mild aortic stenosis (Acute) Hypertension (Acute) Chronic low back pain (Acute) Hypothyroid (Acute) Obesity (BMI 30-39.9) (Acute) GERD (gastroesophageal reflux disease) (Acute ~04/15/21) Hypercholesterolemia (Acute) Psoriasis (Acute) Obstructive sleep apnea (Acute) Past Medical History Medical History Dysphagia Finger pain, right History of COVID-19 History of herniated intervertebral disc History of temporal arteritis Hx of iron deficiency anemia On beta anival at home Osteoarthritis 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 Renal calculi Witnessed apneic spells Family History Family History Father Colon cancer Mother Hypertension CVD (cardiovascular disease) Sister Breast cancer Mouth cancer Brother Throat cancer Family history of problems with anesthesia: No Surgical History Surgical History History of arthroscopy of right knee History of cholecystectomy History of esophagogastroduodenoscopy (EGD) Hx of arthroscopy of left knee Hx of colonoscopy Hx of hand surgery Hx of surgical amputation of finger Status post trigger finger release Total knee replacement status History of Problems with Anesthesia: No Social History Social History Housing: House Are you a primary urgent care to a significant other at home: No Do you presently have visiting nurse or other home services: No Alcohol intake: never Patient Tobacco Use Status: Never used Tobacco e-Cigarette/Vaping Use: Never Used Second Hand Smoke Exposure: No Use of substances other than those prescribed or required for medical reasons: No Are you DNR?: No Advance Directives: No Advance Directives Information Provided: Yes Advance Directives on File: No service: No Current occupational status: disabled Current occupation: [employer] Cognitive needs: No Hearing needs: No Vision needs: No Meds Allergies Allergy/AdvReac Type Severity Reaction Status Date / Time lisinopril Allergy Severe cough Verified 03/23/22 14:48 Exam Exam Date and Time: April 08, 2022 0830 Pertinent Lab Results Pertinent Lab Results: Laboratory Tests 02/15/22 02/15/22 08:23 08:23 WBC 7.0 Hgb 12.3 L Hct 37.2 L Plt Count 199 Sodium 141 Potassium 3.8 Chloride 106 Carbon Dioxide 29 BUN 16 D Creatinine 0.98 Narrative Narrative: ECHO 10/2021 Conclusions: - The left ventricular systolic function is normal.? The ? calculated ejection fraction is 58% by biplane method. ? - There is mild aortic valve stenosis. ? - Small plaque is seen in the sino tubular ridge.? Assessment and Plan Assessment Anesthesia Assessment: Chart Reviewed Final Anesthetic Review Family History of Problems with Anesthesia: No History of Problems with Anesthesia: No Documented by User: Olivia Case MD 04/11/22 07:31 [facility] Active Problems Active Problems: All Active Problems (Updated 03/10/22 @ 11:11 by Clarita Wynne MD) Hypercholesterolemia (Acute) Type 2 diabetes mellitus with hyperglycemia (Acute) Osteoarthritis of right hand (Acute) COVID-19 (Acute) Tear of meniscus of left knee (Acute) H/O left knee surgery (Acute) Colon cancer screening (Acute) Hypersomnia (Acute) Renal insufficiency (Acute) Mild aortic stenosis (Acute) Hypertension (Acute) Chronic low back pain (Acute) Hypothyroid (Acute) Obesity (BMI 30-39.9) (Acute) GERD (gastroesophageal reflux disease) (Acute ~04/15/21) Hypercholesterolemia (Acute) Psoriasis (Acute) Obstructive sleep apnea (Acute). 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 Renal calculi Witnessed apneic spells Family History Family History Father Colon cancer Mother Hypertension CVD (cardiovascular disease) Sister Breast cancer Mouth cancer Brother Throat cancer Surgical History Surgical History History of arthroscopy of right knee History of cholecystectomy History of esophagogastroduodenoscopy (EGD) Hx of arthroscopy of left knee Hx of colonoscopy Hx of hand surgery Hx of surgical amputation of finger Status post trigger finger release Total knee replacement status Social History Social History Housing: House Are you a primary urgent care to a significant other at home: No Do you presently have visiting nurse or other home services: No Alcohol intake: never Patient Tobacco Use Status: Never used Tobacco e-Cigarette/Vaping Use: Never Used Second Hand Smoke Exposure: No Use of substances other than those prescribed or required for medical reasons: No Are you DNR?: No Advance Directives: No Advance Directives Information Provided: Yes Advance Directives on File: No service: No Current occupational status: disabled Current occupation: [employer] Cognitive needs: No Hearing needs: No Vision needs: No Meds Allergies Allergy/AdvReac Type Severity Reaction Status Date / Time lisinopril Allergy Severe cough Verified 03/23/22 14:48 Exam Height,Weight and Vital Signs: Height 5 ft 4 in Weight 93.894 kg Vital Signs Temp Pulse Resp BP Pulse Ox O2 Del Method 04/11/22 06:20 97.7 F 97 16 159/87 H 97 Room Air Pertinent Lab Results Pertinent Lab Results: Laboratory Tests 02/15/22 02/15/22 08:23 08:23 WBC 7.0 Hgb 12.3 L Hct 37.2 L Plt Count 199 Sodium 141 Potassium 3.8 Chloride 106 Carbon Dioxide 29 BUN 16 D Creatinine 0.98 Lab Results 04/11/22 Range/Units 06:24 POC Glucose 144 H (60-115) mg/dL Airway Mallampati Class: III TM Dist: >3cm Neck ROM: Full Loose/Missing/Broken Teeth: No (Patient denies broken, loose teeth) Heart: RRR Lungs: CTAB Assessment and Plan Assessment Anesthesia Assessment: Anesthesia Plan Discussed Final Anesthetic Review NPO: Yes ASA Class: III Final Preanesthetic Review: No Changes in Pt Med Stat, Meds/Allgs Chart Reviewed, Consent Obtained/Reviewed and Anes Risks/Benef Reviewed Patient Risk: Intermediate Procedure Risk: Low Assessment/Block/Sedation in SS: Assess/Block/Sedation-SS Anesthetic Plan Anesthetic Plan: GA Disposition: Standard PACU
[2022-04-11] VITALS (10 sets, daily range): BP systolic 125–159; BP diastolic 72–88; PULSE 77–97; RESP 16; TEMP 35.9–36.5; O2SAT 90–99; BMI 35.5
--- NOTE | ~2022-04-11 | FL_ITS ---
EXAMINATION: XR FLUOROSCOPY WITH IMAGES CLINICAL INFORMATION: Ring finger pip COMPARISON: Radiographs hand and finger 09/14/2021 TECHNIQUE: Fluoroscopy performed by Dr. Aishwarya Hong. Fluoroscopy time: 12 seconds. Cumulative Dose: 0.257 mGy. DAP: 0.0155 Gycm2. Images: 7. FINDINGS: There is a threaded screw traversing the fourth finger PIP joint. The hardware appears intact. No acute fracture or dislocation. There are osteoarthritic changes PIP and DIP joints. FL/FL guidance in OR IMPRESSION: Fluoroscopy for orthopedic procedure.
[2022-04-11] MEDS: Lactated Ringers 1,000 ML 100 ML IVCONT (06:29)
[2022-04-11 06:31] LABS: Glucose, Whole Blood 144 mg/dL (60-115)
--- NOTE | 2022-04-11 10:00 | MHC.SHP ---
Pre-Procedural Eval Section A Date of Service: 04/11/22 The patient is an INPATIENT: No Changes since office visit: No Cold of Flu in the past 2 weeks, No New Medical Problems, No Changes in Medication and No Patient answered all questions The History & Physical has been completed within 30 days and I have reviewed it.: Yes Section B Chief Complaint: Primary osteoarthritis, right hand Allergies: Allergies Allergy/AdvReac Type Severity Reaction Status Date / Time lisinopril Allergy Severe cough Verified 03/23/22 14:48 Plan I have reviewed the history and physical and performed a pertinent physical examination on my patient. No changes have occurred unless specified.
--- NOTE | 2022-04-11 10:01 | P.OP_ITS ---
Operative Note Operative Note Date of Service: 04/11/22 Narrative: Operative Note Narrative: Preop diagnosis: 1. Right ring finger PIP joint arthritis Postop diagnosis: Same Procedure: 1. Right ring finger PIP joint arthrodesis 2. Right ulnar nerve block Surgeon: Aishwarya Hong MD Anesthesia: General Anesthesia Findings: end-stage arthritis Implants: AcuTrak 2 mini variable pitch headless compression screw, 24 mm Tourniquet time: 66 minutes EBL: 5.0 ml Specimen: none Drains: None Complications: None Disposition: Brought to the recovery room in stable condition Plan: Follow-up in 10-14 days for wound check, suture removal and pre clinic radiographs anticipate placement in a short-arm finger spica cast until 5+ weeks, or untilevidence of interval bony healing will likely benefit from early hand therapy Indications: The patient is a 61 year old man with end-stage right ring finger PIP joint arthritis . The risks and benefits of operative treatment, including but not limited to risk of damage to blood vessels, nerves, tendons, infection, recurrence, persistent pain or numbness, incomplete resolution of preoperative symptoms, or need for further surgery were discussed with the patient as well as the fact that he would no longer have any motion at the PIP joint,and they wished to proceed with surgery. Procedure: Once consent was obtained patient was brought back to the operating suite and placed in the operating table in a supine position. . Perioperative antibiotics and anesthesia was administered by the anesthesia team. A tourniquet was applied to the proximal aspect of the right upper extremity and the limb was prepped and draped in a standard surgical fashion. The limb was elevated exsanguinated with Esmarch bandage and the tourniquet inflated to 250 mm of mercury for a total tourniquet time of 66 minutes. The FluoroScan was utilized during this case to assess joint position and the placement of all implants. A longitudinally oriented lazy S incision was made over the dorsal aspect of the patient's right ring finger PIP joint. The incision was made through the skin to the subcutaneous tissues using a 15. Blade. Dissection was then made down to the level of the extensor mechanism. A midline incision was then made in the extensor mechanism was small T type flaps at the joint level to facilitate exposure of the joint, and later soft tissue coverage. The radial and ulnar collateral ligaments were released using a 15. Blade to also facilitate our exposure of the PIP joint. A rongeur was used to remove any remaining articular cartilage, of which there was virtually none, as well as some of the hard subchondral bone. I then used in a 0.035 K-wire to fenestrate both the proximal and distal articular surfaces to Facilitate bony ingrowth. The PIP joint was brought into approximately 45 degrees of flexion and the K-wire from the AcuTrak 2 mini headless compression screw set was then passed from proximal to distal across the PIP joint. Once satisfied with our joint position and position of the K-wire I then used the slender AcuTrak 2 Reamer to ream across the PIP joint and into the middle phalanx. Care was taken not to inadvertently removed the K-wire. I then used the short fat paper cup handle machine operator to open up the near cortex. I had measured for a 24 mm headless compression screw, and the AcuTrak 2 mini 24 mm headless compression screw was then passed from proximal to distal along the K-wire and across our PIP joint. Final radiographs were obtained , I was satisfied with our joint position and I found that we had excellent compression across the PIP joint. At this point the K-wire was removed and the wound was again irrigated with normal saline. The extensor mechanism was reapproximated With 4-0 Vicryl to facilitate soft tissue coverage over the proximal screw edge. the skin edges were reapproximated with some 5 0 nylon suture material. At this point the tourniquet was deflated and hemostasis obtained with a brief period of local pressure . A ulnar nerve block was performed by infiltrating about the ulnar nerve at the wrist with some 1% lidocaine with epinephrine for postop pain control. I also injected about the ulnar aspect of the ring finger. A sterile dressing and an ulnar gutter splint were applied. The patient appears to have tolerated the procedure well and with no complications. All digits were well vascularized conclusion of the case.
== END | disposition home or self-care (01) ==
PROVIDERS: PCP Internal Medicine; Visit Provider Orthopaedic Surgery
PROC: (CPT 26860; principal; 2022-04-11 07:30)
DX: M19.041 Primary osteoarthritis, right hand (principal); M25.541 Pain in joints of right hand; Z89.021 Acquired absence of right finger(s); E11.65 Type 2 diabetes mellitus with hyperglycemia; G47.33 Obstructive sleep apnea (adult) (pediatric); Z88.8 Allergy status to other drugs, medicaments and biological substances; Z96.653 Presence of artificial knee joint, bilateral
CPT/HCPCS: 26860; 82947; C1713; J0690; J1100; J2250; J2405; J3010

== ENCOUNTER 2022-04-26 08:55 | Outpatient (REF) | payer OTHER, SELFPAY ==
--- NOTE | ~2022-04-26 | XR_ITS ---
EXAMINATION: XR HAND, RIGHT CLINICAL INFORMATION: Pain right hand. COMPARISON: Right hand 09/14/2021. TECHNIQUE: PA, lateral, and oblique views of the right hand. FINDINGS: There is partial amputation of the 2nd digit beyond the mid proximal phalanx, 3rd digit beyond the proximal and mid phalanx and fusion of the PIP joint with a metallic screw of the 4th digit. Mild loss of the PIP and DIP joints of the 5th digit is noted. XR/XR hand RT min 3V IMPRESSION: Partial amputation of the 2nd and 3rd digits and new fusion of the PIP joint of the 4th digit as described above. No bony erosive changes, fracture or dislocation is seen. Mild degenerative changes of the PIP and DIP joints of the 5th digit are noted and stable.
== END 2022-04-26 08:56 | disposition home or self-care (01) ==
LOC: HO.HOSX 08:55
PROVIDERS: Visit Provider Orthopaedic Surgery
DX: M79.641 Pain in right hand (principal)
CPT/HCPCS: 73130

== ENCOUNTER 2022-05-20 07:21 | Outpatient (REF) | payer OTHER, SELFPAY ==
--- NOTE | ~2022-05-20 | XR_ITS ---
EXAMINATION: XR HAND, RIGHT CLINICAL INFORMATION: Pain COMPARISON: Previous x-ray most recent April 2022 TECHNIQUE: PA, lateral, and oblique views of the right hand. FINDINGS: There is arthrodesis of the PIP joint of the 4th finger with a screw. Appears unchanged in position from previous exam. There is arthritis at the PIP joint. There is arthritis at the DIP joint of the 4th finger and PIP joint of the 5th finger. There is amputation of the 2nd and 3rd fingers. Carpal bones are unremarkable. There is soft tissue swelling adjacent to the proximal 4th finger. There are small densities in the soft tissues adjacent to the volar PIP joint of the 4th finger. These appear unchanged. XR/XR hand RT min 3V IMPRESSION: Stable postsurgical change to the PIP joint of the 4th finger and mild osteoarthritis.
== END 2022-05-20 07:22 | disposition home or self-care (01) ==
LOC: HO.HOSX 07:21
PROVIDERS: Visit Provider Physician Assistant
DX: M79.641 Pain in right hand (principal)
CPT/HCPCS: 73130

== ENCOUNTER 2022-07-01 14:34 | Outpatient (REF) | payer OTHER, SELFPAY ==
[2022-07-01 14:52] LABS: MANUAL DIFF FLAG NO
[2022-07-01 15:07] LABS: Basophils Absolute Auto 0.1 X10*3/uL (0.0-0.2); Basophils Percent Auto 0.6 % (0-2); Eosinophils Absolute Auto 0.2 X10*3/uL (0.0-0.4); Eosinophils Percent Auto 2.4 % (0-4); Hematocrit 40.3 % (42.0-52.0); Hemoglobin 13.1 g/dl (14.0-18.0); Imm Gran Abs Auto 0.02 X10*3/uL (0.00-0.03); Imm Gran Pct Auto 0.2 % (0.0-0.4); Lymphocytes Absolute Auto 2.3 X10*3/uL (1.2-4.9); Mean Corpuscular HGB Conc 32.5 g/dl (31.0-36.0); Mean Corpuscular Volume 92.2 fL (80.0-98.0); Mean Platelet Volume 10.4 fL (9.4-12.4); Monocytes Absolute Auto 0.5 X10*3/uL (0.1-1.2); Monocytes Percent Auto 6.5 % (2-11); Neutrophils Percent Auto 62.3 % (45-73); Platelet Count 187 X10*3/uL (160-400); Red Blood Count 4.37 X10*6/uL (4.60-5.80); Red Cell Distribution Width 13.2 % (11.0-16.0); White Blood Count 8.1 X10*3/uL (4.8-10.8)
[2022-07-01 15:33] LABS: Alanine Aminotransferase 21 U/L (0-40); Albumin Level 4.3 g/dL (3.5-5.0); Alkaline Phosphatase 82 U/L (39-117); Anion Gap 18 (12-20); Aspartate Amino Transferase 27 U/L (5-37); Bilirubin Total 0.8 mg/dL (0.0-1.0); Blood Urea Nitrogen 16 mg/dL (9-16); Calcium 9.5 mg/dL (8.4-10.2); Carbon Dioxide 24 mmol/L (22-29); Chloride 103 mmol/L (96-108); Estimated Glomerular Filt Rate > 60; Glucose Random 120 mg/dL (60-115); Potassium 4.8 mmol/L (3.3-5.1); Sodium 140 mmol/L (135-145); Total Protein 8.2 g/dL (6.5-8.0)
[2022-07-01 15:45] LABS: Free T4 (Free Thyroxine) 1.15 ng/dL (0.71-1.85); Thyroid Stimulating Hormone 0.33 uIU/mL (0.32-4.0)
== END 2022-07-01 14:35 | disposition home or self-care (01) ==
LOC: HO.LAB 14:34
PROVIDERS: PCP Internal Medicine; Visit Provider Internal Medicine
DX: R19.7 Diarrhea, unspecified (principal)
CPT/HCPCS: 36415; 80053; 84439; 84443; 85025

== ENCOUNTER 2023-02-13 13:05 | Outpatient (REF) | payer OTHER, SELFPAY ==
[2023-02-13 14:43] LABS: Estimated Average Glucose 120 mg/dL; Hemoglobin A1C 147.2596 umol/L; Hemoglobin A1c % 5.8 %
[2023-02-13 15:23] LABS: Alanine Aminotransferase 15 U/L (0-40); Albumin Level 4.3 g/dL (3.5-5.0); Alkaline Phosphatase 77 U/L (39-117); Anion Gap 12 (12-20); Aspartate Amino Transferase 21 U/L (5-37); Blood Urea Nitrogen 15 mg/dL (9-16); Calcium 9.5 mg/dL (8.4-10.2); Carbon Dioxide 28 mmol/L (22-29); Chloride 106 mmol/L (96-108); Cholesterol 203 mg/dL; Estimated Glomerular Filt Rate > 60; Glucose Random 87 mg/dL (60-115); HDL Cholesterol 47 mg/dL; LDL Cholesterol Calculated 126 mg/dl; Potassium 4.4 mmol/L (3.3-5.1); Sodium 142 mmol/L (135-145); Total Protein 7.5 g/dL (6.5-8.0); Triglycerides 150 mg/dL
[2023-02-13 15:42] LABS: Free T4 (Free Thyroxine) 0.99 ng/dL (0.71-1.85)
== END 2023-02-13 13:06 | disposition home or self-care (01) ==
LOC: HO.LAB 13:05
PROVIDERS: Internal Medicine; PCP Internal Medicine; Visit Provider Internal Medicine
DX: E03.9 Hypothyroidism, unspecified (principal); E11.65 Type 2 diabetes mellitus with hyperglycemia; E78.00 Pure hypercholesterolemia, unspecified
CPT/HCPCS: 36415; 80053; 80061; 83036; 84439; 84443

== ENCOUNTER 2023-04-19 14:44 | Outpatient (REF) | payer OTHER, SELFPAY ==
--- NOTE | ~2023-04-19 | XR_ITS ---
EXAMINATION: XR CHEST 2 VIEWS CLINICAL INFORMATION: Cough. COMPARISON: Prior chest radiographs, most recently 02/08/2021. TECHNIQUE: Frontal and lateral views of the chest were obtained. FINDINGS: The heart, great vessels, pulmonary vasculature and mediastinum are normal. The lungs show no focal infiltrate, effusion or pneumothorax. There is no acute osseous abnormality. There is multi-level thoracic and upper lumbar spondylosis. There is a mild thoracic dextroscoliosis. XR/XR chest 2V IMPRESSION: No active cardiopulmonary disease.
== END 2023-04-19 14:45 | disposition home or self-care (01) ==
LOC: HO.XRAY 14:44
PROVIDERS: PCP Internal Medicine; Visit Provider Internal Medicine
DX: R05.9 Cough, unspecified (principal)
CPT/HCPCS: 71046

== ENCOUNTER 2023-05-12 12:11 | Outpatient (AMB) | payer OTHER, SELFPAY ==
[2023-05-12 12:22] VITALS: BP 128/78; PULSE 82; O2SAT 98; BMI 34.5
--- NOTE | 2023-05-12 12:22 | A.OFFPC_ITS ---
Vital Signs 05/12/23 12:22 Height 5 ft 4 in Weight 201 lb BMI 34.5 BP 128/78 Blood Pressure Location Lt brachial Position Sitting Pulse 82 Pulse Source Pulse Oximeter Temp Source Skin Pulse Oximetry (%) 98 Oxygen Delivery Method Room Air Intake Visit Reasons: follow up Char Belt Operator Required: No Allergies lisinopril Allergy (Severe, Verified 05/12/23 12:23) cough Tobacco use date assessed: 05/12/23 Dental Screening Dental Screen Date: 05/12/23 Did you have a dental visit in the last 12 months?: No Did you have a dental problem in the last 6 months where you did not have access to dental care?: No Was dental information given to patient?: Patient has dentist HPI follow up HPI Details 62-year-old obese male with diabetes mellitus hypercholesterolemia hypertension GERD hypothyroidism obstructive sleep apnea and chronic low back pain last seen in September 2022 patient is here for follow-up review of the notes had chest x-ray done this was negative patient also has seen the nurse practitioner in November 2022 [facility] Medical History Chronic low back pain Dysphagia Finger pain, right GERD (gastroesophageal reflux disease) (~04/15/21) History of COVID-19 History of herniated intervertebral disc History of temporal arteritis Hx of iron deficiency anemia Hypertension Hypothyroid Obesity (BMI 30-39.9) Obstructive sleep apnea On beta anival at home Osteoarthritis 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 Psoriasis Renal calculi Type 2 diabetes mellitus with hyperglycemia Witnessed apneic spells Surgical History History of arthroscopy of right knee History of cholecystectomy History of esophagogastroduodenoscopy (EGD) Hx of arthroscopy of left knee Hx of colonoscopy Hx of hand surgery Hx of surgical amputation of finger Status post trigger finger release Total knee replacement status Family History Father Colon cancer Mother Hypertension CVD (cardiovascular disease) Sister Breast cancer Mouth cancer Brother Throat cancer Social History Housing: House Are you a primary customer care assistant to a significant other at home: No Do you presently have visiting nurse or other home services: No Alcohol intake: never Patient Tobacco Use Status: Never used Tobacco e-Cigarette/Vaping Use: Never Used Second Hand Smoke Exposure: No service: No Current occupational status: disabled Current occupation: [employer] Cognitive needs: No Hearing needs: No Vision needs: No Questionnaire Thrive Questionnaire Date Thrive assessed: 12/23/22 AUDIT C Alcohol Use Questionnaire (AUDIT-C) 1. How often do you have a drink containing alcohol?: Never 3. How often do you have six or more drinks on one occasion?: Never Total Score: 0 MIKAYLA-7 AMB Questionnaire MIKAYLA-7 Date MIKAYLA - 7 assessed: 12/23/22 Source: Developed by Drs. Maksim Anderson, Agueda Banks, Mat Root and colleagues, with an educational saumya from [employer]. Physical exam (Primary Care) Vital Signs: Last Vital Signs Pulse 82 05/12/23 12:22 BP 128/78 05/12/23 12:22 Pulse Ox 98 05/12/23 12:22 Oxygen Delivery Method Room Air 05/12/23 12:22 BMI result Body Mass Index 34.5 Tobacco/Smoking Status: Tobacco use Status Tobacco use date assessed 05/12/23 05/12/23 12:29 Patient Tobacco Use Status Never used Tobacco 05/12/23 12:29 e-Cigarette/Vaping Use Never Used 05/12/23 12:29 Thrive Assessment: Date of Thrive Assessment Date Thrive assessed 12/23/22 05/12/23 12:29 Const General: alert; No acute distress Eyes Conjunctivae: conjunctivae normal Resp Auscultation: clear to auscultation bilaterally Cardio Rate: regular rate Rhythm: regular rhythm GI Inspection: Yes normal to inspection Extrem General: Yes normal to inspection and No edema Results AMB Hemoglobin A1c AMB Hemoglobin A1c 5.9 % Last Edit by DYAN Winkler on 05/12/23 12:34 Assessment and Plan Assessment & Plan (1) Type 2 diabetes mellitus with hyperglycemia: Code(s): E11.65 - Type 2 diabetes mellitus with hyperglycemia Qualifiers: Diabetes mellitus longterm insulin use: without director long term care use Qualified Code(s): E11.65 - Type 2 diabetes mellitus with hyperglycemia Plan: Decrease the amount of carbohydrate intake, pasta, bread, rice and potatoes are all sugar and that is aside from all the sweet stuff, remember that fruits are good but they are Sweet also. Hemoglobin A1c goal of less than 6.5. Patient is on Trulicity Lantus and metformin. Concern that hemoglobin A1c is in the normal range advised patient to decrease the Lantus to 10 units as it is more than years for the sugars to be too low done too high. Reminded about eye exam (2) Hypercholesterolemia: Code(s): E78.00 - Pure hypercholesterolemia, unspecified Plan: Avoid fried foods, chicken skin, eggs, butter margarine, pastries and meat. Be it pork or beef they have a lot of cholesterol LDL goal of less than 100 and triglyceride of less than 150 patient is taking the atorvastatin regularly with the hemoglobin A1c still not controlled. Increase atorvastatin 40 mg once a day (3) Hypertension: Code(s): I10 - Essential (primary) hypertension Qualifiers: Hypertension type: essential hypertension Qualified Code(s): I10 - Essential (primary) hypertension Plan: Continue with blood pressure medication. Decrease salt intake and exercise patient is taking amlodipine 10 mg once a day hydrochlorothiazide 12.5 mg once a day metoprolol 200 mg once a day patient had cough on lisinopril (4) Hypothyroid: Code(s): E03.9 - Hypothyroidism, unspecified Plan: TSH noted low has been told to decrease to 6x a week but patient states did not do this- advise to take once a day 6 x a week! retest 3 months (5) Obesity (BMI 30-39.9): Code(s): E66.9 - Obesity, unspecified Plan: Diet and exercise noted weight loss (6) GERD (gastroesophageal reflux disease): Onset Date: ~04/15/21 Code(s): K21.9 - Gastro-esophageal reflux disease without esophagitis Plan: Avoid the foods that causes that usually spicy foods, tomato products, juices, coffee, soda and foods that your sensitive to. After eating do not lie down, allow 3-4 hours before in lie down. And keep the head of bed above 30 degrees to avoid the acid from going up. (7) Obstructive sleep apnea: Comment: Awaiting CPAP December 2021 Code(s): G47.33 - Obstructive sleep apnea (adult) (pediatric) Plan: Patient still after a year does not have CPAP- was advised by company /insurance need another test- request done (8) Chronic low back pain: Code(s): M54.5 - Low back pain; G89.29 - Other chronic pain Qualifiers: Back pain laterality: midline Sciatica presence: without sciatica Qualified Code(s): M54.5 - Low back pain; G89.29 - Other chronic pain Plan: Continue with tramadol as needed Orders: Orders RT home sleep study Today G47.33 - Obstructive sleep apnea (adult) (pediatric) Comprehensive Met. Panel 3 Months E78.00 - Pure hypercholesterolemia, unspecified Lipid Panel 3 Months E78.00 - Pure hypercholesterolemia, unspecified Free T4 (Free Thyroxine) 3 Months E78.00 - Pure hypercholesterolemia, unspecified Thyroid Stimulating Hormone 3 Months E78.00 - Pure hypercholesterolemia, unspecified AMB Hemoglobin A1c Today E11.65 - Type 2 diabetes mellitus with hyperglycemia Medications: Changed From insulin glargine (Lantus Solostar U-100 Insulin) 13 units (0.13 mL) subcut QAM 3 mL 3RF E11.65 - Type 2 diabetes mellitus with hyperglycemia To insulin glargine (Lantus Solostar U-100 Insulin) 10 units (0.1 mL) subcut QAM 3 mL 3RF E11.65 - Type 2 diabetes mellitus with hyperglycemia From atorvastatin 20 mg PO DAILY 90 days 90 tabs 2RF E78.00 - Pure hypercholesterolemia, unspecified To atorvastatin 40 mg PO DAILY 90 days 90 tabs 2RF E78.00 - Pure hypercholesterolemia, unspecified Coding Level of Care Code Est Pt Level 4 (81119) Diagnoses Type 2 diabetes mellitus with hyperglycemia E11.65 Diabetes mellitus longterm insulin use: without director long term care use Hypercholesterolemia E78.00 Hypertension I10 Hypertension type: essential hypertension Hypothyroid E03.9 Obesity (BMI 30-39.9) E66.9 GERD (gastroesophageal reflux disease) K21.9 Obstructive sleep apnea G47.33 Chronic low back pain M54.5; G89.29 Back pain laterality: midline Sciatica presence: without sciatica
== END 2023-05-12 12:47 | disposition home or self-care (01) ==
PROVIDERS: PCP Internal Medicine; Visit Provider Internal Medicine
DX: E11.65 Type 2 diabetes mellitus with hyperglycemia (principal); I10 Essential (primary) hypertension; E03.9 Hypothyroidism, unspecified; K21.9 Gastro-esophageal reflux disease without esophagitis; E78.00 Pure hypercholesterolemia, unspecified; E66.9 Obesity, unspecified; G47.33 Obstructive sleep apnea (adult) (pediatric); M54.50 Low back pain, unspecified; G89.29 Other chronic pain
CPT/HCPCS: 83036; 99214

== ENCOUNTER → 2023-06-07 14:15 | Outpatient (REF) | payer OTHER, SELFPAY | LOC: HO.SL 14:15 | PROVIDERS: PCP Internal Medicine; Visit Provider Internal Medicine | DX: G47.33 Obstructive sleep apnea (adult) (pediatric) (principal) | CPT/HCPCS: 95806 ==

== ENCOUNTER → 2023-06-07 14:29 | Outpatient (BNV) | payer OTHER, SELFPAY | PROVIDERS: PCP Internal Medicine; Visit Provider Internal Medicine | DX: G47.33 Obstructive sleep apnea (adult) (pediatric) (principal) | CPT/HCPCS: 95806 ==

== ENCOUNTER → 2023-08-04 20:30 | Outpatient (REF) | payer OTHER, SELFPAY | LOC: HO.SL 20:30 | PROVIDERS: PCP Internal Medicine; Visit Provider Internal Medicine | DX: G47.33 Obstructive sleep apnea (adult) (pediatric) (principal) | CPT/HCPCS: 95811 ==

== ENCOUNTER → 2023-08-04 22:30 | Outpatient (BNV) | payer OTHER, SELFPAY | PROVIDERS: PCP Internal Medicine; Visit Provider Psychiatry & Neurology Neurology | DX: G47.33 Obstructive sleep apnea (adult) (pediatric) (principal) | CPT/HCPCS: 95811 ==

== ENCOUNTER 2023-08-16 11:09 | Outpatient (AMB) | payer OTHER, SELFPAY ==
[2023-08-16 11:18] VITALS: BP 136/74; PULSE 83; O2SAT 97; BMI 35.0
--- NOTE | 2023-08-16 11:18 | MHC.PC.OV ---
Vital Signs 08/16/23 11:18 Height 5 ft 4 in Weight 204 lb BMI 35.0 BP 136/74 Blood Pressure Location Lt brachial Position Sitting Pulse 83 Pulse Source Pulse Oximeter Pulse Oximetry (%) 97 Oxygen Delivery Method Room Air Intake Visit Reasons: 3mth f/u Allergies lisinopril Allergy (Severe, Verified 08/16/23 11:18) cough Tobacco use date assessed: 05/12/23 Dental Screening Dental Screen Date: 08/16/23 Did you have a dental visit in the last 12 months?: Yes Did you have a dental problem in the last 6 months where you did not have access to dental care?: No Was dental information given to patient?: Patient has dentist HPI 3mth f/u HPI Details 62-year-old obese male still gaining with diabetes mellitus controlled hypertension hypercholesterolemia hypothyroidism GERD obstructive sleep apnea and chronic low back pain on tramadol coming in for follow-up. Last seen in May 2023. Patient is up-to-date with colonoscopy. 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 Dysphagia Type 2 diabetes mellitus with hyperglycemia Witnessed apneic spells History of herniated intervertebral disc Osteoarthritis Hx of iron deficiency anemia On beta anival at home History of COVID-19 Finger pain, right Renal calculi History of temporal arteritis Obstructive sleep apnea Psoriasis GERD (gastroesophageal reflux disease) (~04/15/21) Obesity (BMI 30-39.9) Hypothyroid Chronic low back pain Hypertension Surgical History History of esophagogastroduodenoscopy (EGD) Hx of hand surgery Hx of arthroscopy of left knee Hx of surgical amputation of finger Hx of colonoscopy Status post trigger finger release Total knee replacement status History of arthroscopy of right knee History of cholecystectomy Family History (Updated 08/16/23 @ 11:19 by Iveth Cuevas CMA) Father Colon cancer Mother Hypertension CVD (cardiovascular disease) Sister Breast cancer Mouth cancer Brother Throat cancer Social History (Reviewed 12/23/22 @ 13:49 by MAHI Kaur Housing: House Are you a primary insurance healthcare consultant to a significant other at home: No Do you presently have visiting nurse or other home services: No Alcohol intake: never Patient Tobacco Use Status: Never used Tobacco e-Cigarette/Vaping Use: Never Used Second Hand Smoke Exposure: No service: No Current occupational status: disabled Current occupation: [employer] Cognitive needs: No Hearing needs: No Vision needs: No Questionnaire PHQ-9 Over the last 2 weeks, how often have you been bothered by any of the following problems? 1. Little interest or pleasure in doing things: not at all 2. Feeling down, depressed, or hopeless: not at all 3. Trouble falling or staying asleep, or sleeping too much: not at all 4. Feeling tired or having little energy: not at all 5. Poor appetite or overeating: not at all 6. Feeling bad about yourself - or that you are a failure or have let yourself or your family down: not at all 7. Trouble concentrating on things, such as reading the newspaper or watching television: not at all 8. Moving or speaking so slowly that other people could have noticed. Or the opposite - being so fidgety or restless that you have been moving around a lot more than usual: not at all 9. Thoughts that you would be better off or of hurting yourself in some way: not at all Total score: 0 Depression Screening Interpretation: Negative Depression Screening Done: Yes Source: Developed by Drs. Maksim Anderson, Mat Duran and colleagues, with an educational saumya from [employer]. Thrive Questionnaire Date Thrive assessed: 12/23/22 AUDIT C Alcohol Use Questionnaire (AUDIT-C) 1. How often do you have a drink containing alcohol?: Never 3. How often do you have six or more drinks on one occasion?: Never Total Score: 0 MIKAYLA-7 AMB Questionnaire MIKAYLA-7 Date MIKAYLA - 7 assessed: 12/23/22 Source: Developed by Drs. Maksim Anderson, Mat Duran and colleagues, with an educational saumya from [employer]. Physical exam (Primary Care) Vital Signs: Last Vital Signs Pulse 83 08/16/23 11:18 BP 136/74 08/16/23 11:18 Pulse Ox 97 08/16/23 11:18 Oxygen Delivery Method Room Air 08/16/23 11:18 BMI result Body Mass Index 35.0 Tobacco/Smoking Status: Tobacco use Status Tobacco use date assessed 05/12/23 08/16/23 11:21 Patient Tobacco Use Status Never used Tobacco 08/16/23 11:21 e-Cigarette/Vaping Use Never Used 08/16/23 11:21 PHQ-9: PHQ-9 Score PHQ-9: Total score 0 08/16/23 11:34 Depression Screening Interpretation: Negative Thrive Assessment: Date of Thrive Assessment Date Thrive assessed 12/23/22 08/16/23 11:21 Const General: alert; No acute distress Eyes Conjunctivae: conjunctivae normal Resp Auscultation: clear to auscultation bilaterally Cardio Rate: regular rate Rhythm: regular rhythm GI Inspection: Yes normal to inspection Extrem General: Yes normal to inspection and No edema Results AMB Hemoglobin A1c AMB Hemoglobin A1c 6.1 % Last Edit by Iveth Cuevas CMA on 08/16/23 11:35 Results Reviewed Results Reviewed: Laboratory Last Values Hgb A1c (Clinic) 6.1 % (4.0-6.0) H 08/16/23 11:22 Assessment and Plan Assessment & Plan (1) Type 2 diabetes mellitus with hyperglycemia: Code(s): E11.65 - Type 2 diabetes mellitus with hyperglycemia Qualifiers: Diabetes mellitus adjunct faculty for medical terminology insulin use: without nursing home use Qualified Code(s): E11.65 - Type 2 diabetes mellitus with hyperglycemia Plan: Decrease the amount of carbohydrate intake, pasta, bread, rice and potatoes are all sugar and that is aside from all the sweet stuff, remember that fruits are good but they are Sweet also. Hemoglobin A1c goal of less than 6.5 patient is taking Trulicity 1.5 mg once a week Lantus at 10 units once a day metformin 500 mg twice a day (2) Hypercholesterolemia: Code(s): E78.00 - Pure hypercholesterolemia, unspecified Plan: Avoid fried foods, chicken skin, eggs, butter margarine, pastries and meat. Be it pork or beef they have a lot of cholesterol LDL goal of less than 100 and triglyceride of less than 150 patient is on atorvastatin 40 mg once a day (3) Hypertension: Code(s): I10 - Essential (primary) hypertension Qualifiers: Hypertension type: essential hypertension Qualified Code(s): I10 - Essential (primary) hypertension Plan: Continue with blood pressure medication. Decrease salt intake and exercise continue with amlodipine 10 mg once a day hydrochlorothiazide 12.5 mg once a day metoprolol 200 mg once a day (4) Hypothyroid: Code(s): E03.9 - Hypothyroidism, unspecified Plan: Continue with thyroid medication (5) Obstructive sleep apnea: Comment: Awaiting CPAP Decemberleep study done 06/09/2023 showing severe obstructive sleep apnea AHI 34 with nocturnal hypoxemia treat with AutoPAP mode pressure setting 6-20 cm water Code(s): G47.33 - Obstructive sleep apnea (adult) (pediatric) Plan: Sleep study done June 2023 severe CPAP has been prescribed (6) GERD (gastroesophageal reflux disease): Onset Date: ~04/15/21 Code(s): K21.9 - Gastro-esophageal reflux disease without esophagitis Plan: Avoid the foods that causes that usually spicy foods, tomato products, juices, coffee, soda and foods that your sensitive to. After eating do not lie down, allow 3-4 hours before in lie down. And keep the head of bed above 30 degrees to avoid the acid from going up. (7) Chronic low back pain: Code(s): M54.5 - Low back pain; G89.29 - Other chronic pain Qualifiers: Back pain laterality: midline Sciatica presence: without sciatica Qualified Code(s): M54.5 - Low back pain; G89.29 - Other chronic pain Plan: Keep active lose the weight summation point (8) Psoriasis: Code(s): L40.9 - Psoriasis, unspecified Orders: Orders AMB Hemoglobin A1c Today Z13.9 - Encounter for screening, unspecified Referrals Sleep Medicine Referral G47.33 - Obstructive sleep apnea (adult) (pediatric) Medications: Changed From dulaglutide 1.5 mg (0.5 mL) subcut QWEEK 30 days 2.5 mL 11RF E11.65 - Type 2 diabetes mellitus with hyperglycemia To dulaglutide 3 mg (0.5 mL) subcut QWEEK 30 days 2.5 mL 11RF E11.65 - Type 2 diabetes mellitus with hyperglycemia Refilled clobetasol 0.05% apply affected area topical 2 times a day; 60 grams 1RF L40.9 - Psoriasis, unspecified Coding Level of Care Code Est Pt Level 4 (70592) Diagnoses Type 2 diabetes mellitus with hyperglycemia, without long-term current use of insulin E11.65 Diabetes mellitus adjunct faculty for medical terminology insulin use: without nursing home use Hypercholesterolemia E78.00 Essential hypertension I10 Hypertension type: essential hypertension Hypothyroid E03.9 Obstructive sleep apnea G47.33 GERD (gastroesophageal reflux disease) K21.9 Chronic midline low back pain without sciatica M54.5; G89.29 Back pain laterality: midline Sciatica presence: without sciatica Psoriasis L40.9 Additional Codes PHQ-9 - 79137 - PHQ-9 Billing: ([id number])
== END 2023-08-16 12:07 | disposition home or self-care (01) ==
PROVIDERS: PCP Internal Medicine; Visit Provider Internal Medicine
DX: E11.65 Type 2 diabetes mellitus with hyperglycemia (principal); E78.00 Pure hypercholesterolemia, unspecified; I10 Essential (primary) hypertension; E03.9 Hypothyroidism, unspecified; G47.33 Obstructive sleep apnea (adult) (pediatric); K21.9 Gastro-esophageal reflux disease without esophagitis; M54.50 Low back pain, unspecified; G89.29 Other chronic pain; L40.9 Psoriasis, unspecified
CPT/HCPCS: 83036; 99214

== ENCOUNTER 2023-11-03 09:53 | Outpatient (REF) | payer OTHER, SELFPAY ==
[2023-11-03 11:26] LABS: Alanine Aminotransferase 24 U/L (0-40); Albumin Level 4.4 g/dL (3.5-5.0); Alkaline Phosphatase 67 U/L (39-117); Anion Gap 10 (12-20); Aspartate Amino Transferase 31 U/L (5-37); Bilirubin Total 0.9 mg/dL (0.0-1.0); Blood Urea Nitrogen 18 mg/dL (9-16); Calcium 9.3 mg/dL (8.4-10.2); Carbon Dioxide 30 mmol/L (22-29); Chloride 105 mmol/L (96-108); Cholesterol 199 mg/dL (<200); Estimated Glomerular Filt Rate > 60; Glucose Random 115 mg/dL (60-115); HDL Cholesterol 54 mg/dL (>40); LDL Cholesterol Calculated 116 mg/dL (<100); Potassium 4.3 mmol/L (3.3-5.1); Sodium 141 mmol/L (135-145); Triglycerides 149 mg/dL (<150)
[2023-11-03 11:42] LABS: Free T4 (Free Thyroxine) 0.85 ng/dL (0.71-1.85); Thyroid Stimulating Hormone 4.09 uIU/mL (0.32-4.0)
== END 2023-11-03 09:54 | disposition home or self-care (01) ==
LOC: HO.LAB 09:53
PROVIDERS: PCP Internal Medicine; Visit Provider Internal Medicine
DX: E78.00 Pure hypercholesterolemia, unspecified (principal)
CPT/HCPCS: 36415; 80053; 80061; 84439; 84443

== ENCOUNTER 2023-11-29 09:50 | Outpatient (AMB) | payer OTHER, SELFPAY ==
[2023-11-29 09:52] VITALS: BP 140/78; PULSE 80; O2SAT 96; BMI 36.5
--- NOTE | 2023-11-29 09:52 | A.OFFPC_ITS ---
Vital Signs 11/29/23 09:52 Height 5 ft 3 in Weight 206 lb BMI 36.5 BP 140/78 H Blood Pressure Location Lt brachial Position Sitting Pulse 80 Pulse Source Pulse Oximeter Pulse Oximetry (%) 96 Oxygen Delivery Method Room Air Intake Visit Reasons: RUBÉN, LBP, Cholesterol Allergies lisinopril Allergy (Severe, Verified 11/29/23 09:52) cough Tobacco use date assessed: 11/29/23 Fall risk assessment: No Falls in past year Last assessed Fall Risk: 11/29/23 Dental Screening Dental Screen Date: 11/29/23 Did you have a dental visit in the last 12 months?: No Did you have a dental problem in the last 6 months where you did not have access to dental care?: No Was dental information given to patient?: Patient has dentist HPI RUBÉN, LBP, Cholesterol HPI Details 63-year-old obese male with controlled d iabetes mellitus hypercholesterolemia hypertension hypothyroidism obstructive sleep apnea GERD and history of chronic low back pain on tramadol. Patient is here for follow- up. Patient's colonoscopy is up-to-date November 2021. cough still there after months - stopping lisinopril. 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 Dysphagia Type 2 diabetes mellitus with hyperglycemia Witnessed apneic spells History of herniated intervertebral disc Osteoarthritis Hx of iron deficiency anemia On beta anival at home History of COVID-19 Finger pain, right Renal calculi History of temporal arteritis Obstructive sleep apnea Psoriasis GERD (gastroesophageal reflux disease) (~04/15/21) Obesity (BMI 30-39.9) Hypothyroid Chronic low back pain Hypertension Surgical History History of esophagogastroduodenoscopy (EGD) Hx of hand surgery Hx of arthroscopy of left knee Hx of surgical amputation of finger Hx of colonoscopy Status post trigger finger release Total knee replacement status History of arthroscopy of right knee History of cholecystectomy Family History (Updated 08/16/23 @ 11:19 by Iveth Cuevas CMA) Father Colon cancer Mother Hypertension CVD (cardiovascular disease) Sister Breast cancer Mouth cancer Brother Throat cancer Social History Housing: House Are you a primary lawn care professional to a significant other at home: No Do you presently have visiting nurse or other home services: No Alcohol intake: never Patient Tobacco Use Status: Never used Tobacco e-Cigarette/Vaping Use: Never Used Second Hand Smoke Exposure: No service: No Current occupational status: disabled Current occupation: [employer] Cognitive needs: No Hearing needs: No Vision needs: No Questionnaire PHQ-9 Over the last 2 weeks, how often have you been bothered by any of the following problems? 1. Little interest or pleasure in doing things: not at all 2. Feeling down, depressed, or hopeless: not at all 3. Trouble falling or staying asleep, or sleeping too much: not at all 4. Feeling tired or having little energy: not at all 5. Poor appetite or overeating: not at all 6. Feeling bad about yourself - or that you are a failure or have let yourself or your family down: not at all 7. Trouble concentrating on things, such as reading the newspaper or watching television: not at all 8. Moving or speaking so slowly that other people could have noticed. Or the opposite - being so fidgety or restless that you have been moving around a lot more than usual: not at all 9. Thoughts that you would be better off or of hurting yourself in some way: not at all Total score: 0 Depression Screening Interpretation: Negative Depression Screening Done: Yes Source: Developed by Drs. Maksim Anderson, Agueda Banks, Mat Root and colleagues, with an educational saumya from [employer]. Thrive Questionnaire Date Thrive assessed: 11/29/23 I am a: Patient What is your living situation today?: I have a steady place to live Within the past 12 months, did the food you bought not last and you didn't have the money to get more?: Never true Within the past 12 months, did you worry whether your food would run out before you got money to buy more?: Never true Do you have trouble paying for medicines?: No Do you have trouble getting transportation to medical appointments?: No Do you have trouble paying your heating and electricity bill?: No Do you have trouble taking care of your child, family member or friend?: No Do you have trouble with day-to-day activities such as bathing, preparing meals, shopping, managing finances, etc.?: No Are you currently unemployed and looking for a job?: No Are you interested in more education?: No Currently or been in a relationship where the following occur: no concerns reported THRIVE Score: 0 AUDIT C Alcohol Use Questionnaire (AUDIT-C) 1. How often do you have a drink containing alcohol?: Never 3. How often do you have six or more drinks on one occasion?: Never Total Score: 0 MIKAYLA-7 AMB Questionnaire MIKAYLA-7 Date MIKAYLA - 7 assessed: 11/29/23 Feeling nervous, anxious, or on edge: 0 = Not at all Not being able to stop or control worryin = Not at all Worrying too much about different things: 0 = Not at all Trouble relaxin = Not at all Being so restless that it is hard to sit still: 0 = Not at all Becoming easily annoyed or irritable: 0 = Not at all Feeling afraid as if something awful might happen: 0 = Not at all Total MIKAYLA-7 score (0-4 normal; 5-9 mild; 10-14 moderate; 15-21 severe): 0 Source: Developed by Drs. Maksim Anderson, Agueda Banks, Mat Root and colleagues, with an educational saumya from [employer]. Physical exam (Primary Care) Vital Signs: Last Vital Signs Pulse 80 11/29/23 09:52 BP 140/78 H 11/29/23 09:52 Pulse Ox 96 11/29/23 09:52 Oxygen Delivery Method Room Air 11/29/23 09:52 BMI result Body Mass Index 36.5 Tobacco/Smoking Status: Tobacco use Status Tobacco use date assessed 11/29/23 11/29/23 09:54 Patient Tobacco Use Status Never used Tobacco 11/29/23 09:54 e-Cigarette/Vaping Use Never Used 11/29/23 09:54 PHQ-9: PHQ-9 Score PHQ-9: Total score 0 11/29/23 10:09 Depression Screening Interpretation: Negative Thrive Assessment: Date of Thrive Assessment Date Thrive assessed 11/29/23 11/29/23 09:54 Currently or been in a relationship where the following occur: no concerns reported Const General: alert; No acute distress Eyes Conjunctivae: conjunctivae normal Resp Auscultation: clear to auscultation bilaterally Cardio Rate: regular rate Rhythm: regular rhythm GI Inspection: Yes normal to inspection Extrem General: Yes normal to inspection and No edema Results AMB Hemoglobin A1c AMB Hemoglobin A1c 6.2 % Last Edit by DYAN Vyas on 11/29/23 10:11 Assessment and Plan Assessment & Plan (1) Type 2 diabetes mellitus with hyperglycemia: Code(s): E11.65 - Type 2 diabetes mellitus with hyperglycemia Qualifiers: Diabetes mellitus intermediate manager insulin use: without intermediate manager use Qualified Code(s): E11.65 - Type 2 diabetes mellitus with hyperglycemia Plan: Decrease the amount of carbohydrate intake, pasta, bread, rice and potatoes are all sugar and that is aside from all the sweet stuff, remember that fruits are good but they are Sweet also. Hemoglobin A1c goal of less than 6.5 presently on Trulicity 3 mg once a week Lantus at 10 units once a day metformin 500 mg twice a day. Hemoglobin A1c remains to be controlled. (2) Hypertension: Code(s): I10 - Essential (primary) hypertension Qualifiers: Hypertension type: essential hypertension Qualified Code(s): I10 - Essential (primary) hypertension Plan: Continue with blood pressure medication. Decrease salt intake and exercise amlodipine 10 mg once a day hydrochlorothiazide 12.5 mg once a day metoprolol 200 mg once a day (3) Hypothyroid: Code(s): E03.9 - Hypothyroidism, unspecified Plan: Continue with thyroid med (4) Obesity (BMI 30-39.9): Code(s): E66.9 - Obesity, unspecified Plan: Diet and exercise (5) GERD (gastroesophageal reflux disease): Onset Date: ~04/15/21 Code(s): K21.9 - Gastro-esophageal reflux disease without esophagitis Plan: Avoid the foods that causes that usually spicy foods, tomato products, juices, coffee, soda and foods that your sensitive to. After eating do not lie down, allow 3-4 hours before in lie down. And keep the head of bed above 30 degrees to avoid the acid from going up. Omeprazole prescription sent (6) Obstructive sleep apnea: Comment: Awaiting CPAP Decemberleep study done 06/09/2023 showing severe obstructive sleep apnea AHI 34 with nocturnal hypoxemia treat with AutoPAP mode pressure setting 6-20 cm water Code(s): G47.33 - Obstructive sleep apnea (adult) (pediatric) Plan: Discussed about CPAP treatment. wll be seeing the sleep specialist this next month (7) Chronic low back pain: Code(s): M54.5 - Low back pain; G89.29 - Other chronic pain Qualifiers: Back pain laterality: midline Sciatica presence: without sciatica Qualified Code(s): M54.5 - Low back pain; G89.29 - Other chronic pain Plan: Discussed about weight loss to help with back pain. Patient was advised to continue with exercises and losing weight (8) Cough: Code(s): R05.9 - Cough, unspecified Plan: Discussed about chronic causes of cough advised to get chest x-ray done as well as a lung function test. Patient was prescribed allergy medication as well as reflux medication. Orders: Orders AMB Hemoglobin A1c Today E11.65 - Type 2 diabetes mellitus with hyperglycemia Lipid Panel 3 Months E78.00 - Pure hypercholesterolemia, unspecified Comprehensive Met. Panel 3 Months E78.00 - Pure hypercholesterolemia, unspecified IRON PROFILE 3 Months E78.00 - Pure hypercholesterolemia, unspecified XR chest 2V Today R05.9 - Cough, unspecified PFT pulmonary function test Today R05.9 - Cough, unspecified Complete Blood Count Auto Diff 3 Months E78.00 - Pure hypercholesterolemia, unspecified Ferritin 3 Months E78.00 - Pure hypercholesterolemia, unspecified Reticulocyte Count 3 Months E78.00 - Pure hypercholesterolemia, unspecified Vitamin B12 and Folate 3 Months E78.00 - Pure hypercholesterolemia, unspecified Medications: New omeprazole 20 mg PO DAILY 30 caps 0RF R05.9 - Cough, unspecified fexofenadine (Marilin Allergy) 180 mg PO DAILY 30 tabs 0RF R05.9 - Cough, unspecified Changed From atorvastatin 40 mg PO DAILY 90 days 90 tabs 2RF E78.00 - Pure hypercholesterolemia, unspecified To atorvastatin 80 mg PO DAILY 90 days 90 tabs 2RF E78.00 - Pure hypercholesterolemia, unspecified Refilled zolpidem 10 mg PO BEDTIME 30 days PRN 14 tabs 0RF sleep E11.65 - Type 2 diabetes mellitus with hyperglycemia tramadol 50 mg PO Q6H 28 days PRN 112 tabs 0RF pain G89.29 - Other chronic pain, M54.5 - Low back pain Discontinued [AUTO PAP 6-20 cmH20 Humidified air] Discontinued Reason: Duplicate As directed 1 ea 0RF G47.33 - Obstructive sleep apnea (adult) (pediatric) Coding Level of Care Code Est Pt Level 4 (74965) Diagnoses Type 2 diabetes mellitus with hyperglycemia, without long-term current use of insulin E11.65 Diabetes mellitus custodial insulin use: without intermediate manager use Essential hypertension I10 Hypertension type: essential hypertension Hypothyroid E03.9 Obesity (BMI 30-39.9) E66.9 GERD (gastroesophageal reflux disease) K21.9 Obstructive sleep apnea G47.33 Chronic midline low back pain without sciatica M54.5; G89.29 Back pain laterality: midline Sciatica presence: without sciatica Cough R05.9 Additional Codes PHQ-9 - 68545 - PHQ-9 Billing: ([id number])
== END 2023-11-29 10:18 | disposition home or self-care (01) ==
PROVIDERS: PCP Internal Medicine; Visit Provider Internal Medicine
DX: E11.65 Type 2 diabetes mellitus with hyperglycemia (principal); I10 Essential (primary) hypertension; E66.9 Obesity, unspecified; Z68.36 Body mass index [BMI] 36.0-36.9, adult; E03.9 Hypothyroidism, unspecified; K21.9 Gastro-esophageal reflux disease without esophagitis; G47.33 Obstructive sleep apnea (adult) (pediatric); M54.50 Low back pain, unspecified; G89.29 Other chronic pain; R05.9 Cough, unspecified
CPT/HCPCS: 83036; 99214

== ENCOUNTER 2024-03-11 09:33 | Outpatient (AMB) | payer OTHER, SELFPAY ==
--- NOTE | 2024-03-11 09:40 | MHC.PC.OV ---
Vital Signs 03/11/24 09:41 03/11/24 09:50 Height 5 ft 3 in Weight 207 lb 0.6 oz BMI 36.7 BP 142/78 H 132/70 Blood Pressure Location Lt brachial Lt brachial Position Sitting Sitting Pulse 82 Pulse Source Pulse Oximeter Pulse Oximetry (%) 96 Oxygen Delivery Method Room Air Intake Visit Reasons: 3 month f/u- see comments Beading Installer Required: No Allergies lisinopril Allergy (Severe, Verified 03/11/24 09:41) cough Tobacco use date assessed: 11/29/23 Fall risk assessment: No Falls in past year Last assessed Fall Risk: 03/11/24 Dental Screening Dental Screen Date: 11/29/23 HPI 3 month f/u- see comments HPI Details 63-year-old obese male with controlled diabetes mellitus hypertension hypothyroid GERD obstructive sleep apnea with chronic low back pain receiving pain medication. Patient comes in for follow-up last seen in 11/21/2023. Patient's colonoscopy is up-to-date 12/19/2021 last cholesterol testing was done in 11/21/2023 LDL was high and was advised to repeat. 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 Dysphagia Type 2 diabetes mellitus with hyperglycemia Witnessed apneic spells History of herniated intervertebral disc Osteoarthritis Hx of iron deficiency anemia On beta anival at home History of COVID-19 Finger pain, right Renal calculi History of temporal arteritis Obstructive sleep apnea Psoriasis GERD (gastroesophageal reflux disease) (~04/15/21) Obesity (BMI 30-39.9) Hypothyroid Chronic low back pain Hypertension Surgical History History of esophagogastroduodenoscopy (EGD) Hx of hand surgery Hx of arthroscopy of left knee Hx of surgical amputation of finger Hx of colonoscopy Status post trigger finger release Total knee replacement status History of arthroscopy of right knee History of cholecystectomy Family History (Updated 08/16/23 @ 11:19 by Iveth Cuevas CMA) Father Colon cancer Mother Hypertension CVD (cardiovascular disease) Sister Breast cancer Mouth cancer Brother Throat cancer Social History (Reviewed 12/23/22 @ 13:49 by MAHI Kaur Housing: House Are you a primary adult caregiver to a significant other at home: No Do you presently have visiting nurse or other home services: No Alcohol intake: never Patient Tobacco Use Status: Never used Tobacco e-Cigarette/Vaping Use: Never Used Second Hand Smoke Exposure: No service: No Current occupational status: disabled Current occupation: [employer] Cognitive needs: No Hearing needs: No Vision needs: No Questionnaire Thrive Questionnaire Date Thrive assessed: 11/29/23 AUDIT C Alcohol Use Questionnaire (AUDIT-C) 1. How often do you have a drink containing alcohol?: Never 3. How often do you have six or more drinks on one occasion?: Never Total Score: 0 MIKAYLA-7 AMB Questionnaire MIKAYLA-7 Date MIKAYLA - 7 assessed: 11/29/23 Source: Developed by Drs. Maksim Anderson, Agueda Banks, Mat Root and colleagues, with an educational saumya from [employer]. Physical exam (Primary Care) Vital Signs: Oxygen Delivery Method Room Air 03/11/24 09:41 Tobacco/Smoking Status: Tobacco use Status Tobacco use date assessed 11/29/23 11/29/23 09:54 Patient Tobacco Use Status Never used Tobacco 11/29/23 09:54 e-Cigarette/Vaping Use Never Used 11/29/23 09:54 Thrive Assessment: Date of Thrive Assessment Date Thrive assessed 11/29/23 11/29/23 09:54 Const General: alert; No acute distress Eyes Conjunctivae: conjunctivae normal Resp Auscultation: clear to auscultation bilaterally Cardio Rate: regular rate Rhythm: regular rhythm GI Inspection: Yes normal to inspection Extrem General: Yes normal to inspection and No edema Assessment and Plan Assessment & Plan (1) Type 2 diabetes mellitus with hyperglycemia: Code(s): E11.65 - Type 2 diabetes mellitus with hyperglycemia Qualifiers: Diabetes mellitus long chain quiller tender insulin use: without residential use Qualified Code(s): E11.65 - Type 2 diabetes mellitus with hyperglycemia Plan: Decrease the amount of carbohydrate intake, pasta, bread, rice and potatoes are all sugar and that is aside from all the sweet stuff, remember that fruits are good but they are Sweet also. Hemoglobin A1c goal of less than 6.5. On Trulicity Lantus metformin. noted weight still high, will increase trulicity (2) Hypercholesterolemia: Code(s): E78.00 - Pure hypercholesterolemia, unspecified Plan: Avoid fried foods, chicken skin, eggs, butter margarine, pastries and meat. Be it pork or beef they have a lot of cholesterol LDL goal of less than 100 and triglyceride of less than 150 patient on atorvastatin. Cholesterol was elevated the last time in November that is why retesting has been advised but this was not done. (3) Hypertension: Code(s): I10 - Essential (primary) hypertension Qualifiers: Hypertension type: essential hypertension Qualified Code(s): I10 - Essential (primary) hypertension Plan: Continue with blood pressure medication. Decrease salt intake and exercise taking hydrochlorothiazide amlodipine metoprolol. Had cough with lisinopril (4) Hypothyroid: Code(s): E03.9 - Hypothyroidism, unspecified Plan: Continue with thyroid medication, TSH mild high, will request test today (5) Obesity (BMI 30-39.9): Code(s): E66.9 - Obesity, unspecified Plan: Diet and exercise (6) GERD (gastroesophageal reflux disease): Onset Date: ~04/15/21 Code(s): K21.9 - Gastro-esophageal reflux disease without esophagitis Plan: Avoid the foods that causes that usually spicy foods, tomato products, juices, coffee, soda and foods that your sensitive to. After eating do not lie down, allow 3-4 hours before in lie down. And keep the head of bed above 30 degrees to avoid the acid from going up. (7) Obstructive sleep apnea: Comment: Awaiting CPAP Decemberleep study done 06/09/2023 showing severe obstructive sleep apnea AHI 34 with nocturnal hypoxemia treat with AutoPAP mode pressure setting 6-20 cm water Code(s): G47.33 - Obstructive sleep apnea (adult) (pediatric) Plan: Continue to use the CPAP more than 4 hours a night and benefits from this (8) Chronic low back pain: Code(s): M54.5 - Low back pain; G89.29 - Other chronic pain Qualifiers: Back pain laterality: midline Sciatica presence: without sciatica Qualified Code(s): M54.5 - Low back pain; G89.29 - Other chronic pain Plan: Continue with present medication (9) Mild aortic stenosis: Comment: 10/2021 Code(s): I35.0 - Nonrheumatic aortic (valve) stenosis Plan: echo ordered Orders: Orders AMB Hemoglobin A1c Today E11.65 - Type 2 diabetes mellitus with hyperglycemia CA echo transthoracic complete Today I35.0 - Nonrheumatic aortic (valve) stenosis Thyroid Stimulating Hormone Today I35.0 - Nonrheumatic aortic (valve) stenosis Free T4 (Free Thyroxine) Today I35.0 - Nonrheumatic aortic (valve) stenosis Medications: Changed From dulaglutide 3 mg (0.5 mL) subcut QWEEK 30 days 2.5 mL 11RF E11.65 - Type 2 diabetes mellitus with hyperglycemia To dulaglutide 4.5 mg (0.5 mL) subcut QWEEK 30 days 2.5 mL 11RF E11.65 - Type 2 diabetes mellitus with hyperglycemia Coding Level of Care Code Est Pt Level 4 (52478) Complex EM visit Add On G2211 Diagnoses Type 2 diabetes mellitus with hyperglycemia, without long-term current use of insulin E11.65 Diabetes mellitus long chain quiller tender insulin use: without long chain quiller tender use Hypercholesterolemia E78.00 Essential hypertension I10 Hypertension type: essential hypertension Hypothyroid E03.9 Obesity (BMI 30-39.9) E66.9 GERD (gastroesophageal reflux disease) K21.9 Obstructive sleep apnea G47.33 Chronic midline low back pain without sciatica M54.5; G89.29 Back pain laterality: midline Sciatica presence: without sciatica Mild aortic stenosis I35.0
[2024-03-11 09:41] VITALS: BP 142/78; PULSE 82; O2SAT 96; BMI 36.7
[2024-03-11 09:50] VITALS: BP 132/70
== END 2024-03-11 10:04 | disposition home or self-care (01) ==
PROVIDERS: PCP Internal Medicine; Visit Provider Internal Medicine
DX: E11.65 Type 2 diabetes mellitus with hyperglycemia (principal); E78.00 Pure hypercholesterolemia, unspecified; E66.9 Obesity, unspecified; Z68.36 Body mass index [BMI] 36.0-36.9, adult; I10 Essential (primary) hypertension; E03.9 Hypothyroidism, unspecified; K21.9 Gastro-esophageal reflux disease without esophagitis; G47.33 Obstructive sleep apnea (adult) (pediatric); M54.50 Low back pain, unspecified; G89.29 Other chronic pain; I35.0 Nonrheumatic aortic (valve) stenosis
CPT/HCPCS: 83036; 99214; G2211

== ENCOUNTER 2024-03-11 10:14 | Outpatient (REF) | payer OTHER, SELFPAY ==
[2024-03-11 10:26] LABS: MANUAL DIFF FLAG NO
[2024-03-11 10:51] LABS: Basophils Absolute Auto 0.1 X10*3/uL (0.0-0.2); Basophils Percent Auto 0.8 % (0-2); Eosinophils Absolute Auto 0.4 X10*3/uL (0.0-0.4); Eosinophils Percent Auto 5.3 % (0-4); Hematocrit 38.4 % (42.0-52.0); Hemoglobin 12.8 g/dl (14.0-18.0); Imm Gran Abs Auto 0.01 X10*3/uL (0.00-0.03); Imm Gran Pct Auto 0.1 % (0.0-0.4); Immature Retic Fraction 15.2 % (2.3-13.4); Lymphocytes Absolute Auto 4.2 X10*3/uL (1.2-4.9); Lymphocytes Percent Auto 55.4 % (20-40); Mean Corpuscular HGB Conc 33.3 g/dl (31.0-36.0); Mean Corpuscular Hemoglobin 31.8 pg (27.0-33.0); Mean Corpuscular Volume 95.3 fL (80.0-98.0); Mean Platelet Volume 10.4 fL (9.4-12.4); Monocytes Absolute Auto 0.6 X10*3/uL (0.1-1.2); Monocytes Percent Auto 8.5 % (2-11); Neutrophils Absolute Auto 2.3 x10*3/uL (2.0-8.3); Neutrophils Percent Auto 29.9 % (45-73); Platelet Count 222 X10*3/uL (160-400); Red Blood Count 4.03 X10*6/uL (4.60-5.80); Red Cell Distribution Width 13.5 % (11.0-16.0); Retic HGB Equivalent 35.6 pg (30.0-35.0); Reticulocyte Percent 1.5 % (0.5-1.8); Reticulocytes Absolute 0.062 X10*6/uL (0.026-0.095); White Blood Count 7.5 X10*3/uL (4.8-10.8)
[2024-03-11 11:16] LABS: Alanine Aminotransferase 23 U/L (0-40); Albumin Level 4.3 g/dL (3.5-5.0); Alkaline Phosphatase 71 U/L (39-117); Anion Gap 12 (12-20); Aspartate Amino Transferase 25 U/L (5-37); Bilirubin Total 0.8 mg/dL (0.0-1.0); Blood Urea Nitrogen 18 mg/dL (9-16); Calcium 9.9 mg/dL (8.4-10.2); Carbon Dioxide 30 mmol/L (22-29); Chloride 106 mmol/L (96-108); Cholesterol 172 mg/dL (<200); Estimated Glomerular Filt Rate > 60; Glucose Random 103 mg/dL (60-115); HDL Cholesterol 48 mg/dL (>40); Iron 92 mcg/dL (45-160); LDL Cholesterol Calculated 97 mg/dL (<100); Percent Iron Saturation 28 % (15-50); Potassium 4.5 mmol/L (3.3-5.1); Sodium 143 mmol/L (135-145); Total Iron Binding Capacity 324 mcg/dL (228-428); Triglycerides 136 mg/dL (<150); Unsaturated Iron Binding 232 ug/dL
[2024-03-11 11:34] LABS: Ferritin 302 ng/mL (20-250); Free T4 (Free Thyroxine) 0.92 ng/dL (0.71-1.85); Thyroid Stimulating Hormone 4.59 uIU/mL (0.32-4.0)
[2024-03-11 11:43] LABS: Folate 12.6 ng/mL (> or = 4.0); Vitamin B12 380 pg/mL (200-900)
== END 2024-03-11 10:15 | disposition home or self-care (01) ==
LOC: HO.LAB 10:14
PROVIDERS: PCP Internal Medicine; Visit Provider Internal Medicine
DX: E78.00 Pure hypercholesterolemia, unspecified (principal); I35.0 Nonrheumatic aortic (valve) stenosis
CPT/HCPCS: 36415; 80053; 80061; 82607; 82728; 82746; 83540; 84439; 84443; 85025; 85045

== ENCOUNTER → 2024-03-27 10:36 | Outpatient (REF) | payer OTHER, SELFPAY ==
--- NOTE | 2024-03-27 10:39 | CA_ITS ---
Transthoracic Echocardiogram Patient (Last, First, Middle): Xander Shaw A Gender: Male Date of : 1960 Age: 63 Procedure Date: 03/27/2024 Procedure Type: Transthoracic Echocardiogram Location: OP Height: 160.02 cm Weight: 92.53 kg BSA: 1.95 m2 Heart Rate: bpm BP: 140 / 84 mmHg Green End Worker: CAITLIN Referring MD: Clarita Wynne MD Scientific Associate: Vincent Fernandes MD Symptoms: I35.0 - Nonrheumatic aortic (valve) stenosis Study Quality: Fair, contrast ECG Rhythm: Sinus Conclusions: - 1. Normal LV ejection fraction of 65-70% 2. Mild aortic stenosis 3. Mildly dilated ascending aorta at 3.7 cm 4. No gross pericardial effusion Findings Procedure Information Contrast agent, definity, is being given per protocol without apparent complications. Left Ventricle Normal left ventricular size, thickness, and systolic function. The visually estimated ejection fraction is between 65-70%. There is mild septal asymmetric hypertrophy. Right Ventricle Normal right ventricular cavity size and systolic function. Atria The left atrium is normal in size. Interatrial shunt cannot be excluded. The right atrium was not well visualized. Aortic Valve There is mild calcification of the aortic valve. There is mild thickening of the aortic valve. There is mild aortic valve stenosis. The mean gradient is 11 mmHg. The aortic valve area is 1.84 cm2. There is no aortic valve regurgitation. Mitral Valve Likely normal mitral valve structure and function. There is trace mitral valve regurgitation. There is no mitral valve stenosis. Pulmonic Valve The pulmonic valve was not well visualized. Tricuspid Valve Likely normal tricuspid valve structure and function. Tricuspid regurgitation envelope is inadequate for calculation of right ventricular systolic pressure. Normal right atrial pressure. Great Vessels The pulmonary artery was not well visualized. There is mild dilatation of the ascending aorta measuring 3.70 cm. Small plaque is seen in the sino tubular ridge. Venous The inferior vena cava is normal in size and collapses greater than 50% with inspiration. Pericardium/Pleural There is no evidence of pericardial effusion. Prior Study Comparison No significant change compared to prior study dated: 10/15/2021. Measurements 2D Linear Measurements IVSd: 1.01 0.6-0.9/0.6-1.0 cm LVIDd: 4.90 3.9-5.3/4.2-5.9 cm LVIDd Index: 2.51 2.4-3.2/2.2-3.1 cm/m2 LVIDs: 2.67 2.0-3.6 cm LVPWd: 1.00 0.7-1.1 cm LA Diam: 3.50 2.7-3.8/3.0-4.0 cm LAIDs Index: 1.79 1.5-2.3 cm/m2 LV Mass: 220.78 67-162/88-224 g LV Mass Index: 113.22 43-95/49-115 g/m2 LVOT Diam: 2.30 3.0+(-)1.3 cm 2D Systolic Function EF 4C: 69.60 >55% EF 2C: 67.50 >55% EF BiP: 68.80 >55% Mitral Valve MV Pk E: 0.64 MV PK A: 0.80 MV Decel Time: 244.00 E/A: 0.80 E'Lateral: 7.94 E'Medial: 6.53 E/E' Med: 9.80 E/E' Lat: 8.00 PHT: 71.00 MVA PHT: 3.10 Decel Dubois: 2.62 Aortic Valve AoV Pk Melvin: 2.28 AoV Mn Melvin: 1.53 AoV VTI: 0.50 AoV Pk Grad: 21.00 Aov Mn Grad: 11.00 AKIKO Cont.VTI: 1.84 LVOT LVOT Pk Melvin: 1.10 LVOT Mn Melvin: 0.73 LVOT VTI: 0.22 LVOT Pk Grad: 5.00 LVOT Mn Grad: 2.00 LVOT Diam: 2.30 LVOT Area: 4.15 Diastolic Function MV Pk E: 0.64 MV Pk A: 0.80 E/A: 0.80 E'Medial: 6.53 E/E' Med: 9.80 E' Laterial: 7.94 E/E' Lat: 8.00 Right Ventricle TAPSE (mm): 22.30 TVS' Melvin: 12.40 Tricuspid Valve RA Press: 3.00 Great Vessels Aorta Sinus of Valsalva: 3.51 2.0-3.[address] Ridge: 2.45 1.7-3.4 cm Ao Asc: 3.70 2.1-3.4 cm Updated in Other Vendor System with Status of Final Vincent Fernandes MD electronically signed on 03/27/2024 4:23:15 PM with status of Final
== END ==
LOC: HO.CARD 10:36
PROVIDERS: PCP Internal Medicine; Visit Provider Internal Medicine
DX: I35.0 Nonrheumatic aortic (valve) stenosis (principal)
CPT/HCPCS: 93306; Q9957

== ENCOUNTER → 2024-03-27 10:39 | Outpatient (BNV) | payer OTHER, SELFPAY | PROVIDERS: PCP Internal Medicine; Visit Provider Internal Medicine Cardiovascular Disease | DX: I35.0 Nonrheumatic aortic (valve) stenosis (principal); I35.8 Other nonrheumatic aortic valve disorders | CPT/HCPCS: 93306 ==

== ENCOUNTER 2024-08-01 11:32 | Outpatient (AMB) | payer OTHER, SELFPAY ==
--- NOTE | 2024-08-01 11:37 | A.OFFPC_ITS ---
Vital Signs 08/01/24 11:39 Height 5 ft 3 in Weight 202 lb 8 oz BMI 35.9 BP 120/74 Blood Pressure Location Lt brachial Position Sitting Pulse 70 Pulse Source Pulse Oximeter Pulse Oximetry (%) 97 Oxygen Delivery Method Room Air Intake Visit Reasons: DM, Cholesterol, Hypothyroid Intake Note: Patient is here to follow up on DM, Cholesterol, Hypothyroid. Top Stop Attacher Required: No Academic Records Specialist: Not Required per policy Accompanied by: Self / Same As Patient Allergies lisinopril Allergy (Severe, Verified 08/01/24 11:38) cough Tobacco use date assessed: 08/01/24 Fall risk assessment: No Falls in past year Last assessed Fall Risk: 08/01/24 Dental Screening Dental Screen Date: 11/29/23 HPI DM, Cholesterol, Hypothyroid HPI Details 63-year-old obese male with controlled d iabetes mellitus hypertension hypercholesterolemia hypothyroid obstructive sleep apnea chronic low back pain on pain medication coming in for follow-up. Last seen in 03/21/2024. Patient is up-to-date with colonoscopy. Noted echocardiogram March. Normal LV ejection fraction of 65-70% 2. Mild aortic stenosis 3. Mildly dilated ascending aorta at 3.7 cm 4. 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 Dysphagia Type 2 diabetes mellitus with hyperglycemia Witnessed apneic spells History of herniated intervertebral disc Osteoarthritis Hx of iron deficiency anemia On beta anival at home History of COVID-19 Finger pain, right Renal calculi History of temporal arteritis Obstructive sleep apnea Psoriasis GERD (gastroesophageal reflux disease) (~04/15/21) Obesity (BMI 30-39.9) Hypothyroid Chronic low back pain Hypertension Surgical History History of esophagogastroduodenoscopy (EGD) Hx of hand surgery Hx of arthroscopy of left knee Hx of surgical amputation of finger Hx of colonoscopy Status post trigger finger release Total knee replacement status History of arthroscopy of right knee History of cholecystectomy Family History Father Colon cancer Mother Hypertension CVD (cardiovascular disease) Sister Breast cancer Mouth cancer Brother Throat cancer Social History Housing: House Are you a primary respite care provider to a significant other at home: No Do you presently have visiting nurse or other home services: No Alcohol intake: never Patient Tobacco Use Status: Never used Tobacco e-Cigarette/Vaping Use: Never Used Second Hand Smoke Exposure: No service: No Current occupational status: disabled Current occupation: [employer] Cognitive needs: No Hearing needs: No Vision needs: No Questionnaire Thrive Questionnaire Date Thrive assessed: 11/29/23 MIKAYLA-7 AMB Questionnaire MIKAYLA-7 Date MIKAYLA - 7 assessed: 11/29/23 Source: Developed by Drs. Maksim Anderson, Agueda Banks, Mat Root and colleagues, with an educational saumya from [employer]. Physical exam (Primary Care) Vital Signs: Last Vital Signs Pulse 70 08/01/24 11:39 BP 120/74 08/01/24 11:39 Pulse Ox 97 08/01/24 11:39 Oxygen Delivery Method Room Air 08/01/24 11:39 BMI result Body Mass Index 35.9 Tobacco/Smoking Status: Tobacco use Status Tobacco use date assessed 08/01/24 08/01/24 11:47 Patient Tobacco Use Status Never used Tobacco 08/01/24 11:47 e-Cigarette/Vaping Use Never Used 08/01/24 11:47 Thrive Assessment: Date of Thrive Assessment Date Thrive assessed 11/29/23 08/01/24 11:47 Const General: alert; No acute distress Eyes Conjunctivae: conjunctivae normal Resp Auscultation: clear to auscultation bilaterally Cardio Rate: regular rate Rhythm: regular rhythm GI Inspection: Yes normal to inspection Extrem General: Yes normal to inspection and No edema Results AMB Hemoglobin A1c AMB Hemoglobin A1c 6.0 % Last Edit by DYAN Oneill on 08/01/24 11:49 Results Reviewed Results Reviewed: Laboratory Last Values Hgb A1c (Clinic) 6.0 % (4.0-6.0) 08/01/24 11:37 Coding Level of Care Code Est Pt Level 4 (74335) Complex EM visit Add On G2211 Diagnoses Type 2 diabetes mellitus with hyperglycemia, without long-term current use of insulin E11.65 Diabetes mellitus exterminator termite insulin use: without long-term use Hypercholesterolemia E78.00 Essential hypertension I10 Hypertension type: essential hypertension Obesity (BMI 30-39.9) E66.9 Obstructive sleep apnea G47.33 Gastroesophageal reflux disease without esophagitis K21.9 Esophagitis presence: without esophagitis Ascending aorta dilatation I77.810 Assessment & Plan Assessment & Plan (1) Type 2 diabetes mellitus with hyperglycemia: Code(s): E11.65 - Type 2 diabetes mellitus with hyperglycemia Category: Medical Qualifiers: Diabetes mellitus exterminator termite insulin use: without long-term use Qualified Code(s): E11.65 - Type 2 diabetes mellitus with hyperglycemia Plan: Decrease the amount of carbohydrate intake, pasta, bread, rice and potatoes are all sugar and that is aside from all the sweet stuff, remember that fruits are good but they are Sweet also. Hemoglobin A1c goal of less than 6.5. Patient on Trulicity 4.5 mg Lantus at 10 units once a day metformin at 500 mg twice a day (2) Hypercholesterolemia: Code(s): E78.00 - Pure hypercholesterolemia, unspecified Category: Medical Plan: Avoid fried foods, chicken skin, eggs, butter margarine, pastries and meat. Be it pork or beef they have a lot of cholesterol LDL goal of less than 100 and triglyceride of less than 150 on atorvastatin 80 mg once a day (3) Hypertension: Code(s): I10 - Essential (primary) hypertension Category: Medical Qualifiers: Hypertension type: essential hypertension Qualified Code(s): I10 - Essential (primary) hypertension Plan: Continue with blood pressure medication. Decrease salt intake and exercise takes hydrochlorothiazide 12.5 mg once a day metoprolol 200 mg once a day (4) Obesity (BMI 30-39.9): Code(s): E66.9 - Obesity, unspecified Category: Medical Plan: Diet and exercise (5) Obstructive sleep apnea: Comment: Awaiting CPAP Decemberleep study done 06/09/2023 showing severe obstructive sleep apnea AHI 34 with nocturnal hypoxemia treat with AutoPAP mode pressure setting 6-20 cm water Code(s): G47.33 - Obstructive sleep apnea (adult) (pediatric) Category: Medical Plan: Continue to use the CPAP more than 4 hours a night and benefits from this (6) GERD (gastroesophageal reflux disease): Onset Date: ~04/15/21 Code(s): K21.9 - Gastro-esophageal reflux disease without esophagitis Category: Medical Qualifiers: Esophagitis presence: without esophagitis Qualified Code(s): K21.9 - Gastro-esophageal reflux disease without esophagitis Plan: Avoid the foods that causes that usually spicy foods, tomato products, juices, coffee, soda and foods that your sensitive to. After eating do not lie down, allow 3-4 hours before in lie down. And keep the head of bed above 30 degrees to avoid the acid from going up. (7) Ascending aorta dilatation: Comment: March 2024 3.7 Code(s): I77.810 - Thoracic aortic ectasia Category: Medical Plan: Will continue to monitor. Orders: Orders AMB Hemoglobin A1c Today E11.65 - Type 2 diabetes mellitus with hyperglycemia Medications: New flash glucose scanning reader ([employer] Markus 2 Sherman) As directed 1 ea 0RF E11.65 - Type 2 diabetes mellitus with hyperglycemia flash glucose sensor ([employer]Style Markus 2 Sensor kit) As directed 6 kits 0RF E11.65 - Type 2 diabetes mellitus with hyperglycemia
[2024-08-01 11:39] VITALS: BP 120/74; PULSE 70; O2SAT 97; BMI 35.9
== END 2024-08-01 12:29 | disposition home or self-care (01) ==
LOC: HO.HMCH 11:33
PROVIDERS: PCP Internal Medicine; Visit Provider Internal Medicine
DX: E11.65 Type 2 diabetes mellitus with hyperglycemia (principal); I77.810 Thoracic aortic ectasia; I10 Essential (primary) hypertension; E78.00 Pure hypercholesterolemia, unspecified; E66.9 Obesity, unspecified; G47.33 Obstructive sleep apnea (adult) (pediatric); K21.9 Gastro-esophageal reflux disease without esophagitis

== ENCOUNTER → 2024-08-01 11:32 | Outpatient (BNVA) | payer OTHER, SELFPAY | PROVIDERS: PCP Internal Medicine; Visit Provider Internal Medicine | DX: E11.65 Type 2 diabetes mellitus with hyperglycemia (principal); E78.00 Pure hypercholesterolemia, unspecified; E66.9 Obesity, unspecified; I10 Essential (primary) hypertension; K21.9 Gastro-esophageal reflux disease without esophagitis; I77.810 Thoracic aortic ectasia | CPT/HCPCS: 83036; 99212 ==

== ENCOUNTER 2024-12-26 15:26 | Emergency (ER) | payer OTHER, SELFPAY ==
[2024-12-26 15:31] VITALS: BP 153/80; PULSE 77; RESP 18; TEMP 36.4; O2SAT 96; BMI 32.9
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
[2024-12-26 17:45] VITALS: BP 136/80; PULSE 75; RESP 16; TEMP 36.8; O2SAT 98
[2024-12-26 18:00] VITALS: BP 140/80; PULSE 79; RESP 16; TEMP 36.8; O2SAT 98
--- NOTE | 2024-12-26 18:30 | PC.NURSE ---
Medication given to pt by PA. Gardiner. prior to dc.
[2024-12-26 18:31] VITALS: BP 140/80; PULSE 79; RESP 16; TEMP 36.8; O2SAT 98
== END 2024-12-26 18:33 | disposition home or self-care (01) ==
PROVIDERS: Emergency Provider Emergency Medicine; PCP Internal Medicine
DX: S05.01XA Injury of conjunctiva and corneal abrasion without foreign body, right eye, initial encounter (principal); W22.8XXA Striking against or struck by other objects, initial encounter; H11.31 Conjunctival hemorrhage, right eye; H57.11 Ocular pain, right eye; Y93.9 Activity, unspecified; Y92.9 Unspecified place or not applicable; Y99.9 Unspecified external cause status
CPT/HCPCS: 99283; 99284

== ENCOUNTER 2025-01-15 09:45 | Outpatient (AMB) | payer OTHER, SELFPAY ==
--- NOTE | 2025-01-15 09:56 | A.OFFPC_ITS ---
Vital Signs 01/15/25 09:57 Height 5 ft 2 in Weight 195 lb BMI 35.7 BP 136/82 Blood Pressure Location Lt brachial Position Sitting Pulse 75 Pulse Source Pulse Oximeter Pulse Oximetry (%) 97 Oxygen Delivery Method Room Air Intake Visit Reasons: 3 month DM, LBP Allergies lisinopril Allergy (Severe, Verified 01/15/25 09:58) cough Medication List - Last Reconciled 01/15/25 by Clarita Wynne MD [alcohol prep pads As directed] amlodipine 10 mg PO DAILY 90 days [APAP 6-20 cm H2O humidified air Sleep study done 06/09/2023 showing severe obstructive sleep apnea AHI 34 with nocturnal hypoxemia treat with AutoPAP mode pressure setting 6-20 cm water] atorvastatin 80 mg PO DAILY 90 days blood sugar diagnostic (FreeStyle Lite Strips) As directed check the BS QD blood-glucose meter (FreeStyle Lite Meter kit) As directed clobetasol 0.05% 1 appl topical BID PRN 14 days clobetasol 0.05% apply affected area topical 2 times a day; crutch As directed dulaglutide 4.5 mg (0.5 mL) subcut QWEEK 30 days fexofenadine (Mairlin Allergy) 180 mg PO DAILY flash glucose scanning reader (TwoTenStyle Markus 2 Dighton) As directed flash glucose sensor (FreeStyle Markus 2 Sensor kit) As directed hydrochlorothiazide 12.5 mg PO QAM lancets (FreeStyle Lancets) As directed check BS QD levothyroxine 150 mcg PO .QD 30 days metformin 500 mg PO BID 90 days metoprolol succinate ER 200 mg PO DAILY ofloxacin 0.3% 1 drp ophthalmic-Right QID 5 days omeprazole 20 mg PO DAILY pen needle, diabetic (BD Barbara 2nd Gen Pen Needle) As directedInject BID tramadol 50 mg PO Q6H PRN 28 days zolpidem 10 mg PO BEDTIME PRN 30 days Tobacco use date assessed: 01/15/25 Fall risk assessment: No Falls in past year Last assessed Fall Risk: 01/15/25 Dental Screening Dental Screen Date: 01/15/25 Did you have a dental visit in the last 12 months?: Yes Did you have a dental problem in the last 6 months where you did not have access to dental care?: No Was dental information given to patient?: Patient has dentist [facility] Medical History (Updated 12/27/24 @ 00:00 by Audrey Michel) 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 Dysphagia Type 2 diabetes mellitus with hyperglycemia Witnessed apneic spells History of herniated intervertebral disc Osteoarthritis Hx of iron deficiency anemia On beta anival at home History of COVID-19 Finger pain, right Renal calculi History of temporal arteritis Obstructive sleep apnea Psoriasis GERD (gastroesophageal reflux disease) (~04/15/21) Obesity (BMI 30-39.9) Hypothyroid Chronic low back pain Hypertension Surgical History History of esophagogastroduodenoscopy (EGD) Hx of hand surgery Hx of arthroscopy of left knee Hx of surgical amputation of finger Hx of colonoscopy Status post trigger finger release Total knee replacement status History of arthroscopy of right knee History of cholecystectomy Family History Father Colon cancer Mother Hypertension CVD (cardiovascular disease) Sister Breast cancer Mouth cancer Brother Throat cancer Social History Housing: House Are you a primary client care manager to a significant other at home: No Do you presently have visiting nurse or other home services: No Alcohol intake: never Patient Tobacco Use Status: Never used Tobacco Tobacco use type: Cigarette e-Cigarette/Vaping Use: Never Used Second Hand Smoke Exposure: No service: No Current occupational status: disabled Current occupation: [employer] Cognitive needs: No Hearing needs: No Vision needs: No Questionnaire PHQ-9 Over the last 2 weeks, how often have you been bothered by any of the following problems? 1. Little interest or pleasure in doing things: not at all 2. Feeling down, depressed, or hopeless: not at all 3. Trouble falling or staying asleep, or sleeping too much: not at all 4. Feeling tired or having little energy: not at all 5. Poor appetite or overeating: not at all 6. Feeling bad about yourself - or that you are a failure or have let yourself or your family down: not at all 7. Trouble concentrating on things, such as reading the newspaper or watching television: not at all 8. Moving or speaking so slowly that other people could have noticed. Or the opposite - being so fidgety or restless that you have been moving around a lot more than usual: not at all 9. Thoughts that you would be better off or of hurting yourself in some way: not at all Total score: 0 Depression Screening Interpretation: Negative Depression Screening Done: Yes Source: Developed by Drs. Maksim Anderson, Agueda Banks, Mat Root and colleagues, with an educational saumya from [employer]. Thrive Questionnaire Date Thrive assessed: 01/15/25 I am a: Patient What is your living situation today?: I have a steady place to live Within the past 12 months, did the food you bought not last and you didn't have the money to get more?: Never true Within the past 12 months, did you worry whether your food would run out before you got money to buy more?: Never true Do you have trouble paying for medicines?: No Do you have trouble getting transportation to medical appointments?: No Do you have trouble paying your heating and electricity bill?: No Do you have trouble taking care of your child, family member or friend?: No Do you have trouble with day-to-day activities such as bathing, preparing meals, shopping, managing finances, etc.?: No Are you currently unemployed and looking for a job?: No Are you interested in more education?: No Currently or been in a relationship where the following occur: No concerns reported THRIVE Score: 0 AUDIT C Alcohol Use Questionnaire (AUDIT-C) 1. How often do you have a drink containing alcohol?: Never 3. How often do you have six or more drinks on one occasion?: Never Total Score: 0 MIKAYLA-7 AMB Questionnaire MIKAYLA-7 Date MIKAYLA - 7 assessed: 01/15/25 Feeling nervous, anxious, or on edge: 0 = Not at all Not being able to stop or control worryin = Not at all Worrying too much about different things: 0 = Not at all Trouble relaxin = Not at all Being so restless that it is hard to sit still: 0 = Not at all Becoming easily annoyed or irritable: 0 = Not at all Feeling afraid as if something awful might happen: 0 = Not at all Total MIKAYLA-7 score (0-4 normal; 5-9 mild; 10-14 moderate; 15-21 severe): 0 Source: Developed by Drs. Maksim Anderson, Agueda Banks, Mat Root and colleagues, with an educational saumya from [employer]. Physical exam (Primary Care) Vital Signs: Last Vital Signs Pulse 75 01/15/25 09:57 BP 136/82 01/15/25 09:57 Pulse Ox 97 01/15/25 09:57 Oxygen Delivery Method Room Air 01/15/25 09:57 BMI result Body Mass Index 35.7 Tobacco/Smoking Status: Tobacco use Status Tobacco use date assessed 01/15/25 01/15/25 10:01 Patient Tobacco Use Status Never used Tobacco 01/15/25 10:01 Tobacco use type Cigarette 01/15/25 10:01 e-Cigarette/Vaping Use Never Used 01/15/25 10:01 PHQ-9: PHQ-9 Score PHQ-9: Total score 0 01/15/25 10:20 Depression Screening Interpretation: Negative Thrive Assessment: Date of Thrive Assessment Date Thrive assessed 01/15/25 01/15/25 10:01 Currently or been in a relationship where the following occur: No concerns reported Const General: alert; No acute distress Eyes Conjunctivae: conjunctivae normal Resp Auscultation: clear to auscultation bilaterally Cardio Rate: regular rate Rhythm: regular rhythm GI Inspection: Yes normal to inspection Extrem General: Yes normal to inspection and No edema Results AMB Hemoglobin A1c AMB Hemoglobin A1c 5.9 % Last Edit by Iveth Cuevas CMA on 01/15/25 10 :20 Results Reviewed Results Reviewed: Laboratory Last Values Hgb A1c (Clinic) 5.9 % (4.0-6.0) 01/15/25 10:20 Coding Level of Care Code Est Pt Level 4 (77266) Complex EM visit Add On G2211 Diagnoses Ascending aorta dilatation I77.810 Type 2 diabetes mellitus with hyperglycemia, without long-term current use of insulin E11.65 Diabetes mellitus exterminator termite insulin use: without usp use Essential hypertension I10 Hypertension type: essential hypertension Hypothyroid E03.9 Obesity (BMI 30-39.9) E66.9 Gastroesophageal reflux disease without esophagitis K21.9 Esophagitis presence: without esophagitis Obstructive sleep apnea G47.33 Hypercholesterolemia E78.00 Assessment & Plan Assessment & Plan (1) Ascending aorta dilatation: Comment: March 2024 3.7 Code(s): I77.810 - Thoracic aortic ectasia Category: Medical Plan: Continue to follow-up. March 2024 last echocardiogram (2) Type 2 diabetes mellitus with hyperglycemia: Code(s): E11.65 - Type 2 diabetes mellitus with hyperglycemia Category: Medical Qualifiers: Diabetes mellitus usp insulin use: without exterminator termite use Qualified Code(s): E11.65 - Type 2 diabetes mellitus with hyperglycemia Plan: Decrease the amount of carbohydrate intake, pasta, bread, rice and potatoes are all sugar and that is aside from all the sweet stuff, remember that fruits are good but they are Sweet also. Patient on Trulicity 4.5 mg once a week Lantus 10 units once a day metformin 500 mg twice a day (3) Hypertension: Code(s): I10 - Essential (primary) hypertension Category: Medical Qualifiers: Hypertension type: essential hypertension Qualified Code(s): I10 - Essential (primary) hypertension Plan: Continue with blood pressure medication. Decrease salt intake and exercise on metoprolol 200 mg once a day hydrochlorothiazide 12.5 mg once a day amlodipine 10 mg once a day (4) Hypothyroid: Code(s): E03.9 - Hypothyroidism, unspecified Category: Medical Plan: Continue with thyroid medication. Patient will need blood work (5) Obesity (BMI 30-39.9): Code(s): E66.9 - Obesity, unspecified Category: Medical Plan: Diet and exercise (6) GERD (gastroesophageal reflux disease): Onset Date: ~04/15/21 Code(s): K21.9 - Gastro-esophageal reflux disease without esophagitis Category: Medical Qualifiers: Esophagitis presence: without esophagitis Qualified Code(s): K21.9 - Gastro-esophageal reflux disease without esophagitis Plan: Avoid the foods that causes that usually spicy foods, tomato products, juices, coffee, soda and foods that your sensitive to. After eating do not lie down, allow 3-4 hours before in lie down. And keep the head of bed above 30 degrees to avoid the acid from going up. (7) Obstructive sleep apnea: Comment: Awaiting CPAP Decemberleep study done 06/09/2023 showing severe obstructive sleep apnea AHI 34 with nocturnal hypoxemia treat with AutoPAP mode pressure setting 6-20 cm water Code(s): G47.33 - Obstructive sleep apnea (adult) (pediatric) Category: Medical Plan: Continue using the CPAP more than 4 hours a night and benefits from this. (8) Hypercholesterolemia: Code(s): E78.00 - Pure hypercholesterolemia, unspecified Category: Medical Plan: Avoid fried foods, chicken skin, eggs, butter margarine, pastries and meat. Be it pork or beef they have a lot of cholesterol patient will need blood work patient is on atorvastatin 80 mg once a day Plan History of Present Illness The patient is a 64-year-old male presenting for management and follow-up of chronic conditions. The patient?s obstructive sleep apnea is stable with consistent CPAP usage. Diabetes management is underway with regular monitoring, though low blood sugars have prompted a reassessment of insulin usage. He monitors blood glucose using a sensor with regular refills supplied. His hypertension is controlled with current medication, and his cholesterol levels are managed with Atorvastatin. The patient?s cardiovascular health has been evaluated, with specific attention given to mild aortic stenosis and an ascending aorta dilatation. Anemia detected in recent lab work necessitates further investigation. Chronic low back pain is being managed with Tramadol, and a recent eye injury has been documented. Health Maintenance - Regular use of CPAP machine for obstructive sleep apnea. - Blood work for diabetes management performed, with subsequent monitoring planned. - Cholesterol levels managed with Atorvastatin. - Cardiovascular evaluation of aortic dimensions in March 2024 suggests monitoring. - Routine follow-up planned around blood pressure management. Social History - The patient adheres to dietary adjustments for GERD management. - The patient uses a CPAP machine for at least 4 hours nightly. - The patient reported low alcohol consumption, with discussions around family concerns related to alcohol. Review of Systems - Respiratory: Reports use of CPAP machine. - Cardiovascular: Denies chest pain or palpitations. - Endocrine: Reports low blood sugar episodes related to insulin use. - Musculoskeletal: Reports chronic low back pain. - Ophthalmologic: Reports previous corneal abrasion. Physical Exam Results - Labs: Hemoglobin A1c recorded at 5.9 in recent blood work; TSH mildly elevated at 4.59; LDL cholesterol at 97. - Tests: Last echocardiogram in March 2024 with mild aortic stenosis and ascending aorta dilatation at 3.7 cm. Plan I will continue management of the patient's chronic conditions by transitioning diabetes treatment from Trulicity to Mounjaro due to better suitability for blood sugar control. Regular blood glucose monitoring is emphasized. Continued effort in managing GERD through lifestyle is advised, and the patient remains on Atorvastatin for hypercholesterolemia and current hypertension medications for stable blood pressure. Anemia will be further explored with additional blood testing. Chronic low back pain persists on Tramadol, while no adverse events from recent eye trauma are noted needing immediate intervention. Patient was informed and verbally consented to the use of an ambient scribe for clinic note documentation during this visit. Discussion Notes I discussed in detail the management plan for the patient's diabetes including transition to Mounjaro from Trulicity and the rationale behind the switch aiming for improved glycemic control. We discussed the continuation of Atorvastatin for cholesterol management and hypertension treatment. I highlighted the importance of ongoing use of the CPAP machine for sleep apnea and adherence to the GERD management regime. Lastly, we consented to routine laboratory evaluation to further assess anemia and the stability of the patient?s aortic dimensions and heart function. Follow-up appointments are planned to monitor the effectiveness and adjust the care plan as needed. Patient Instructions - Continue use of the CPAP machine nightly. - Switch diabetes medication from Trulicity to Mounjaro as discussed. - Monitor blood glucose levels regularly. - Continue prescribed antihypertensive and cholesterol medications. - Schedule blood work to further assess anemia. - Follow dietary and lifestyle measures for GERD management. - Watch for and report any prolonged symptoms from the previous eye injury. Orders: Orders Creatinine Urine 2 Months E11. - Type 2 diabetes mellitus with hyperglycemia Thyroid Stimulating Hormone 2 Months E11. - Type 2 diabetes mellitus with hyperglycemia Vitamin B12 and Folate 2 Months E11. - Type 2 diabetes mellitus with hyperglycemia Lipid Panel 2 Months E11.65 - Type 2 diabetes mellitus with hyperglycemia, E78.00 - Pure hypercholesterolemia, unspecified AMB Hemoglobin A1c Today Z13.9 - Encounter for screening, unspecified Complete Blood Count Auto Diff 2 Months E11. - Type 2 diabetes mellitus with hyperglycemia Comprehensive Met. Panel 2 Months E11. - Type 2 diabetes mellitus with hyperglycemia Microalbumin, Random (w Creat) 2 Months E11.65 - Type 2 diabetes mellitus with hyperglycemia Free T4 (Free Thyroxine) 2 Months E11.65 - Type 2 diabetes mellitus with hyperglycemia Medications: New tirzepatide (Mounjaro) 7.5 mg (0.5 mL) subcut QWEEK 2 mL 3RF E11.65 - Type 2 diabetes mellitus with hyperglycemia Refilled flash glucose sensor (FreeStyle Markus 2 Sensor kit) As directed 6 kits 3RF E11.65 - Type 2 diabetes mellitus with hyperglycemia tramadol 50 mg PO Q6H PRN 112 tabs 0RF pain 28 days G89.29 - Other chronic pain , M54.5 - Low back pain Discontinued dulaglutide Discontinued Reason: Doctor's Order 4.5 mg (0.5 mL) subcut QWEEK 30 days 2.5 mL 11RF E11.65 - Type 2 diabetes mellitus with hyperglycemia insulin glargine (Lantus Solostar U-100 Insulin) Discontinued Reason: Doctor's Order 10 units (0.1 mL) subcut QAM 3 mL 3RF E11.65 - Type 2 diabetes mellitus with hyperglycemia
[2025-01-15 09:57] VITALS: BP 136/82; PULSE 75; O2SAT 97; BMI 35.7
--- OUTSIDE RECORDS SUMMARY | 2025-01-15 10:57 | XMS_ITS | Patient Health Record ---
Author Organization [facility] Address [address] [place] [address] Care Team Providers Care Oracle Specialist Name Role Phone Clarita Wynne MD Primary Care Provider Maksim Hebert [phone] Allergies No Known Allergies Reason For Referral No Information Medications Medication SIG (Take, Route, Frequency, Duration) Notes Start Date End Date Status Simvastatin 20 MG take 1 tablet by april th every evening once daily Oral Once a day Active traMADol HCl 50 MG 1 tablet as needed Orally every 6 hrs/PRN Active Lisinopril 40 MG 1 tablet Oral Once a day Active Levothyroxine Sodium 137 MCG 1 tablet on an empty stomach in the morning Orally Once a day Active MiraLax (colon prep) 17 GM/SCOOP 1 238 Gm bottle mixed with Gatorade or Crystal Light Orally begin at 5:00 p.m. the day before the procedure for 1 day 11/09/2021 Active Omeprazole 20 MG 1 capsule 30 minutes before morning meal Orally Once a day for 30 day(s) Active Dulcolax (colon prep) 5 MG take at 3:00 p.m and 7:00p.m. Orally two tablets twice a day for one day for 1 day 11/09/2021 Active Metoprolol Succinate ER 100 MG 1 tablet Oral Once a day Act derrick Zolpidem Tartrate 10 MG 1 tablet at bedt raine as needed Orally Once a day Active Immunizations Vaccine Route Administration Date Status Comme nts Influenza Unknown 08/18/2021 Administered Social History Tobacco Use: Social History Observation Description Date Details (start date - stop date) Never Smoker NA - NA Tobacco Use/Smoking Question Answer Notes Patient is a nonsmoker Alcohol Screen Question Answer Notes Did you have a drink containing alcohol in the p ast year? No Points 0 Interpretation Negative Section Notes: Nonsmoker; no sig alcohol Nonsmoker; no sig alcohol Problems Problem Type SNOMED Code ICD Code Onset Dates Problem Status W/U Status Risk Notes Problem 812477672 Encounter for screening for malignant neoplasm of colon (Z12.11) Active confirmed Problem 80782400 Blood in stool (K92.1) Active confirmed Problem 828633578 Gastroesophageal reflux disease, esophagitis presence not specified (K21.9) Active confirmed Problem 396752700 Family history o f colon cancer (Z80.0) Active confirmed Problem 15617972 Pharyngoesophage al dysphagia (R13.14) Active confirmed Problem Esophageal reflux finding (336994140) Gastroesophageal reflux (K21.9) Active confirmed Problem Diverticulosis of colon (473720841) Diverticulosis of colon (K57.30) Active confirmed Plan Of Treatment Pending Test Test Name Order Date Pathology 12/13/2021 Future Test Test Name Order Date UPPER GI ENDOSCOPY BALLOOON DILATION OF ESOPH 12/20/2017 COLONOSCOPY 12/20/2017 UPPER GI ENDOSCOPY 11/09/2021 COLONOSCOPY 11/09/2021 Insurance Providers Payer Name Payer Address Payer Phone Subscriber Number Group Number Insured Name Patient Relationship to Insured Coverage Start Date Coverage End Date [facility] [address] [place] [phone] [id number] CELSO WALKER Self - patient is the insured Medical (General) History Medical History History ICD Code Negative colonoscopy in 2003 and in colonoscopy 02-21-2011--hyperplastic polyp, diverticulosis Hypertension Denies [place],CVA,Lung disease,renal disease Hypothyroidism Hyperlipidemia Negative EGD in 2003 except for mild gas tritis--no H.pylori Prediabetic He describes probable sleep apnea but cu rrently is not using a CPAP machine Surgical History Surgery Date(Month/Year) Traumatic amputation of two fingers from his right hand Right knee replacement in 2016--Dr. Shena paez Left knee arthroscopy 2020 [facility]
== END 2025-01-15 10:34 | disposition home or self-care (01) ==
LOC: HO.HMCH 09:45
PROVIDERS: PCP Internal Medicine; Visit Provider Internal Medicine
DX: I77.810 Thoracic aortic ectasia (principal); E11.65 Type 2 diabetes mellitus with hyperglycemia; E66.9 Obesity, unspecified; Z68.35 Body mass index [BMI] 35.0-35.9, adult; I10 Essential (primary) hypertension; E03.9 Hypothyroidism, unspecified; K21.9 Gastro-esophageal reflux disease without esophagitis; G47.33 Obstructive sleep apnea (adult) (pediatric); E78.00 Pure hypercholesterolemia, unspecified

== ENCOUNTER → 2025-01-15 09:45 | Outpatient (BNVA) | payer OTHER, SELFPAY | PROVIDERS: PCP Internal Medicine; Visit Provider Internal Medicine | DX: I77.810 Thoracic aortic ectasia (principal); E11.65 Type 2 diabetes mellitus with hyperglycemia; I10 Essential (primary) hypertension; E03.9 Hypothyroidism, unspecified; E66.9 Obesity, unspecified; Z68.35 Body mass index [BMI] 35.0-35.9, adult; K21.9 Gastro-esophageal reflux disease without esophagitis; G47.33 Obstructive sleep apnea (adult) (pediatric); E78.00 Pure hypercholesterolemia, unspecified; Z79.899 Other long term (current) drug therapy | CPT/HCPCS: 83036; 96127; 99212 ==

== ENCOUNTER 2025-04-16 10:15 | Outpatient (REF) | payer OTHER, SELFPAY ==
[2025-04-16 10:45] LABS: MANUAL DIFF FLAG NO
--- OUTSIDE RECORDS SUMMARY | 2025-04-16 10:49 | XMS_ITS | Patient Health Record ---
Author Organization [facility] Address [address] [place] [address] Care Team Providers Care Labor Arbitrator Name Role Phone Clarita Wynne MD Primary Care Provider Maksim Hebert [phone] Allergies No Known Allergies Reason For Referral [...] Problem Status W/U Status Risk Notes Problem 408945600 Encounter for screening for malignant neoplasm of colon (Z12.11) Active confirmed Problem 20590551 Blood in stool (K92.1) Active confirmed Problem 124951693 Gastroesophageal reflux disease, esophagitis presence not specified (K21.9) Active confirmed Problem 770112739 Family history o f colon cancer (Z80.0) Active confirmed Problem 24172293 Pharyngoesophage al dysphagia (R13.14) Active confirmed Problem Esophageal reflux finding (562616986) Gastroesophageal reflux (K21.9) Active confirmed Problem Diverticulosis of colon (811050444) Diverticulosis of colon (K57.30) Active confirmed Plan Of Treatment Pending Test Test Name Order Date Pathology 12/13/2021 Future Test Test Name Order Date UPPER GI ENDOSCOPY BALLOOON DILATION OF ESOPH 12/20/2017 COLONOSCOPY 12/20/2017 UPPER GI ENDOSCOPY 11/09/2021 COLONOSCOPY 11/09/2021 Insurance Providers Payer Name Payer Address Payer Phone Subscriber Number Group Number Insured Name Patient Relationship to Insured Coverage Start Date Coverage End Date [facility] [address] [address] [id number] CELSO WALKER Self - patient is the insured Medical (General) History Medical History History ICD Code Negative colonoscopy in 2003 and in colonoscopy 02-21-2011--hyperplastic polyp, diverticulosis Hypertension Denies [place],CVA,Lung disease,renal disease Hypothyroidism Hyperlipidemia Negative EGD in 2003 except for mild gas tritis--no H.pylori Prediabetic He describes probable sleep apnea but cu rrently is not using a CPAP machine Surgical History Surgery Date(Month/Year) Traumatic amputation of two fingers from his right hand Right knee replacement in 2016--Dr. Shena paez Left knee arthroscopy 2020 [facility]
[2025-04-16 11:04] LABS: Hematocrit 35.6 % (42.0-52.0); Hemoglobin 12.2 g/dl (14.0-18.0); Imm Gran Abs Auto 0.01 X10*3/uL (0.00-0.03); Imm Gran Pct Auto 0.2 % (0.0-0.4); Lymphocytes Absolute Auto 3.2 X10*3/uL (1.2-4.9); Mean Corpuscular HGB Conc 34.3 g/dl (31.0-36.0); Mean Corpuscular Hemoglobin 31.7 pg (27.0-33.0); Mean Corpuscular Volume 92.5 fL (80.0-98.0); NRBC Abs Auto 0.000 X10*3/uL (0.0-0.012); NRBC Pct Auto 0.0 /100WBC (0.0-0.2); Platelet Count 189 X10*3/uL (160-400); Red Blood Count 3.85 X10*6/uL (4.60-5.80); White Blood Count 6.6 X10*3/uL (4.8-10.8)
[2025-04-16 11:54] LABS: Alanine Aminotransferase 26 U/L (0-40); Albumin Level 4.4 g/dL (3.5-5.0); Alkaline Phosphatase 66 U/L (39-117); Anion Gap 10 (12-20); Aspartate Amino Transferase 34 U/L (5-37); Blood Urea Nitrogen 17 mg/dL (9-16); Calcium 9.1 mg/dL (8.4-10.2); Carbon Dioxide 28 mmol/L (22-29); Chloride 108 mmol/L (96-108); Cholesterol 158 mg/dL (<200); Estimated Glomerular Filt Rate > 60; HDL Cholesterol 44 mg/dL (>40); Potassium 4.3 mmol/L (3.3-5.1); Sodium 142 mmol/L (135-145); Total Protein 7.5 g/dL (6.5-8.0); Triglycerides 119 mg/dL (<150)
[2025-04-16 12:18] LABS: Free T4 (Free Thyroxine) 0.98 ng/dL (0.71-1.85); Thyroid Stimulating Hormone 0.57 uIU/mL (0.32-4.0)
[2025-04-16 12:29] LABS: Folate 13.8 ng/mL (> or = 4.0); Vitamin B12 303 pg/mL (200-900)
== END 2025-04-16 10:16 | disposition home or self-care (01) ==
LOC: HO.LAB 10:15
PROVIDERS: PCP Internal Medicine; Visit Provider Internal Medicine
DX: E11.65 Type 2 diabetes mellitus with hyperglycemia (principal); E78.00 Pure hypercholesterolemia, unspecified; E03.9 Hypothyroidism, unspecified
CPT/HCPCS: 36415; 80053; 80061; 82607; 82746; 84439; 84443; 85025

== ENCOUNTER 2025-04-21 12:06 | Outpatient (REF) | payer OTHER, SELFPAY ==
--- OUTSIDE RECORDS SUMMARY | 2025-04-21 13:01 | XMS_ITS | Patient Health Record ---
Author Organization [facility] Address [address] [place] [address] Care Team Providers Care Senior Software Engineer Analytics Name Role Phone Clarita Wynne MD Primary Care Provider Maksim Hebert [phone] Allergies No Known Allergies Reason For Referral [...] Problem Status W/U Status Risk Notes Problem [id number] Encounter for screening for malignant neoplasm of colon (Z12.11) Active confirmed Problem 18307921 Blood in stool (K92.1) Active confirmed Problem 957280622 Gastroesophageal reflux disease, esophagitis presence not specified (K21.9) Active confirmed Problem 478327847 Family history o f colon cancer (Z80.0) Active confirmed Problem 96494046 Pharyngoesophage al dysphagia (R13.14) Active confirmed Problem Esophageal reflux finding (795997856) Gastroesophageal reflux (K21.9) Active confirmed Problem Diverticulosis of colon (538050723) Diverticulosis of colon (K57.30) Active confirmed Plan Of Treatment Pending Test Test Name Order Date Pathology 12/13/2021 Future Test Test Name Order Date UPPER GI ENDOSCOPY BALLOOON DILATION OF ESOPH 12/20/2017 COLONOSCOPY 12/20/2017 UPPER GI ENDOSCOPY 11/09/2021 COLONOSCOPY 11/09/2021 Insurance Providers Payer Name Payer Address Payer Phone Subscriber Number Group Number Insured Name Patient Relationship to Insured Coverage Start Date Coverage End Date [facility] [address] [place] [phone] [id number] CELSO WALKER Self - patient is the insured Medical (General) History Medical History History ICD Code Negative colonoscopy in 2003 and in colonoscopy 02-21-2011--hyperplastic polyp, diverticulosis Hypertension Denies MA,CVA,Lung disease,renal disease Hypothyroidism Hyperlipidemia Negative EGD in 2003 except for mild gas tritis--no H.pylori Prediabetic He describes probable sleep apnea but cu rrently is not using a CPAP machine Surgical History Surgery Date(Month/Year) Traumatic amputation of two fingers from his right hand Right knee replacement in 2016--Dr. Shena paez Left knee arthroscopy 2020 [facility]
[2025-04-21 13:49] LABS: Microalbum/Creatinine Ratio Ur 9.9 ug/mg cr (<30)
== END 2025-04-21 12:07 | disposition home or self-care (01) ==
LOC: HO.LNP 12:06
PROVIDERS: Visit Provider Internal Medicine
DX: E11.65 Type 2 diabetes mellitus with hyperglycemia (principal)
CPT/HCPCS: 82043; 82570

== ENCOUNTER 2025-04-28 12:52 | Outpatient (AMB) | payer OTHER, SELFPAY ==
--- NOTE | 2025-04-28 13:09 | A.OFFPC_ITS ---
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 Required: No Accompanied by: Self / Same As Patient Allergies lisinopril Allergy (Severe, Verified 04/28/25 13:10) cough Tobacco use date assessed: 04/28/25 Fall risk assessment: No Falls in past year Last assessed Fall Risk: 04/28/25 Dental Screening Dental Screen Date: 04/28/25 Did you have a dental visit in the last 12 months?: No Did you have a dental problem in the last 6 months where you did not have access to dental care?: No Was dental information given to patient?: Patient has dentist [facility] Medical History 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 Dysphagia Type 2 diabetes mellitus with hyperglycemia Witnessed apneic spells History of herniated intervertebral disc Osteoarthritis Hx of iron deficiency anemia On beta anival at home History of COVID-19 Finger pain, right Renal calculi History of temporal arteritis Obstructive sleep apnea Psoriasis GERD (gastroesophageal reflux disease) (~04/15/21) Obesity (BMI 30-39.9) Hypothyroid Chronic low back pain Hypertension Surgical History History of esophagogastroduodenoscopy (EGD) Hx of hand surgery Hx of arthroscopy of left knee Hx of surgical amputation of finger Hx of colonoscopy Status post trigger finger release Total knee replacement status History of arthroscopy of right knee History of cholecystectomy Family History Father Colon cancer Mother Hypertension CVD (cardiovascular disease) Sister Breast cancer Mouth cancer Brother Throat cancer Social History Housing: House Are you a primary care management specialist to a significant other at home: No Do you presently have visiting nurse or other home services: No Alcohol intake: never Patient Tobacco Use Status: Never used Tobacco e-Cigarette/Vaping Use: Never Used Second Hand Smoke Exposure: No service: No Current occupational status: disabled Current occupation: [employer] Cognitive needs: No Hearing needs: No Vision needs: No Questionnaire PHQ-9 Over the last 2 weeks, how often have you been bothered by any of the following problems? 1. Little interest or pleasure in doing things: not at all 2. Feeling down, depressed, or hopeless: not at all 3. Trouble falling or staying asleep, or sleeping too much: not at all 4. Feeling tired or having little energy: not at all 5. Poor appetite or overeating: not at all 6. Feeling bad about yourself - or that you are a failure or have let yourself or your family down: not at all 7. Trouble concentrating on things, such as reading the newspaper or watching television: not at all 8. Moving or speaking so slowly that other people could have noticed. Or the opposite - being so fidgety or restless that you have been moving around a lot more than usual: not at all 9. Thoughts that you would be better off or of hurting yourself in some way: not at all Total score: 0 Depression Screening Interpretation: Negative Depression Screening Done: Yes Source: Developed by Drs. Maksim Anderson, Agueda Banks, Mat Root and colleagues, with an educational saumya from [email or web address]. Thrive Questionnaire Date Thrive assessed: 04/28/25 I am a: Patient What is your living situation today?: I have a steady place to live Within the past 12 months, did the food you bought not last and you didn't have the money to get more?: Never true Within the past 12 months, did you worry whether your food would run out before you got money to buy more?: Never true Do you have trouble paying for medicines?: No Do you have trouble getting transportation to medical appointments?: No Do you have trouble paying your heating and electricity bill?: No Do you have trouble taking care of your child, family member or friend?: No Do you have trouble with day-to-day activities such as bathing, preparing meals, shopping, managing finances, etc.?: No Are you currently unemployed and looking for a job?: No Are you interested in more education?: No Currently or been in a relationship where the following occur: No concerns reported THRIVE Score: 0 AUDIT C Alcohol Use Questionnaire (AUDIT-C) 1. How often do you have a drink containing alcohol?: Never 3. How often do you have six or more drinks on one occasion?: Never Total Score: 0 MIKAYLA-7 AMB Questionnaire MIKAYLA-7 Date MIKAYLA - 7 assessed: 04/28/25 Feeling nervous, anxious, or on edge: 0 = Not at all Not being able to stop or control worryin = Not at all Worrying too much about different things: 0 = Not at all Trouble relaxin = Not at all Being so restless that it is hard to sit still: 0 = Not at all Becoming easily annoyed or irritable: 0 = Not at all Feeling afraid as if something awful might happen: 0 = Not at all Total MIKAYLA-7 score (0-4 normal; 5-9 mild; 10-14 moderate; 15-21 severe): 0 Source: Developed by Drs. Maksim Anderson, Agueda Banks, Mat Root and colleagues, with an educational saumya from [email or web address]. Physical exam (Primary Care) Vital Signs: Last Vital Signs Temp 97.3 F 04/28/25 13:10 Pulse 79 04/28/25 13:10 Resp 18 04/28/25 13:10 BP 140/76 H 04/28/25 13:10 Pulse Ox 96 04/28/25 13:10 Oxygen Delivery Method Room Air 04/28/25 13:10 BMI result Body Mass Index 33.5 Tobacco/Smoking Status: Tobacco use Status Tobacco use date assessed 04/28/25 04/28/25 13:20 Patient Tobacco Use Status Never used Tobacco 04/28/25 13:20 Tobacco use type 04/28/25 13:20 e-Cigarette/Vaping Use Never Used 04/28/25 13:20 PHQ-9: PHQ-9 Score PHQ-9: Total score 0 04/28/25 13:42 Depression Screening Interpretation: Negative Thrive Assessment: Date of Thrive Assessment Date Thrive assessed 04/28/25 04/28/25 13:20 Currently or been in a relationship where the following occur: No concerns reported Const General: alert; No acute distress Eyes Conjunctivae: conjunctivae normal Resp Auscultation: clear to auscultation bilaterally Cardio Rate: regular rate Rhythm: regular rhythm GI Inspection: Yes normal to inspection Extrem General: Yes normal to inspection and No edema Results AMB Hemoglobin A1c AMB Hemoglobin A1c 6.0 % Last Edit by Verito Beltran CMA on 04/28/25 13:22 Immunizations pneumoc 20-neno conj-dip cr(PF) 0.5 mL IM syringe Performing Provider: Clarita Wynne MD [facility] [facility] [place] [facility] Administered by: Verito Beltran CMA on 04/28/25 13:40 Dose Route Admin Location Dispensed Lot Number Expiration Date NDC Physician Practice Coordinator 0.5 mL IM Left Tricep 0.5 mL [id number] 05/01/26 [facility]/ [id number] Total Dispensed Waste 0.5 mL 0 % VIS Given Date VIS Provided VIS Publication Date 04/28/25 Single Vaccine 25 Eligibility Eligibility Date Funding Source Not [facility] Eligible 04/28/25 Private Results Reviewed Results Reviewed: Laboratory Last Values Hgb A1c (Clinic) 6.0 % (4.0-6.0) 04/28/25 13:22 Coding Level of Care Code Est Pt Level 4 (97792) Diagnoses Type 2 diabetes mellitus with hyperglycemia, without long-term current use of insulin E11.65 Diabetes mellitus residential insulin use: without terminal system operator use Obesity (BMI 30-39.9) E66.9 Hypercholesterolemia E78.00 Essential hypertension I10 Hypertension type: essential hypertension Obstructive sleep apnea G47.33 Chronic midline low back pain without sciatica M54.5; G89.29 Back pain laterality: midline Sciatica presence: without sciatica Assessment & Plan Assessment & Plan (1) Type 2 diabetes mellitus with hyperglycemia: Code(s): E11.65 - Type 2 diabetes mellitus with hyperglycemia Category: Medical Qualifiers: Diabetes mellitus terminal system operator insulin use: without residential use Qualified Code(s): E11.65 - Type 2 diabetes mellitus with hyperglycemia Plan: Decrease the amount of carbohydrate intake, pasta, bread, rice and potatoes are all sugar and that is aside from all the sweet stuff, remember that fruits are good but they are Sweet also. Hemoglobin A1c goal of less than 6.5. Patient is on metformin 500 mg twice a day Mounjaro 7.5 mg once a week (2) Obesity (BMI 30-39.9): Code(s): E66.9 - Obesity, unspecified Category: Medical Plan: Diet and exercise (3) Hypercholesterolemia: Code(s): E78.00 - Pure hypercholesterolemia, unspecified Category: Medical Plan: Avoid fried foods, chicken skin, eggs, butter margarine, pastries and meat. Be it pork or beef they have a lot of cholesterol LDL goal of less than 100 and triglyceride of less than 150 patient is on atorvastatin 80 mg once a day (4) Hypertension: Code(s): I10 - Essential (primary) hypertension Category: Medical Qualifiers: Hypertension type: essential hypertension Qualified Code(s): I10 - Essential (primary) hypertension Plan: Continue with blood pressure medication. Decrease salt intake and exercise continue with metoprolol 200 mg once a day amlodipine 10 mg once a day (5) Obstructive sleep apnea: Comment: Awaiting CPAP Decemberleep study done 06/09/2023 showing severe obstructive sleep apnea AHI 34 with nocturnal hypoxemia treat with AutoPAP mode pressure setting 6-20 cm water Code(s): G47.33 - Obstructive sleep apnea (adult) (pediatric) Category: Medical Plan: Continue to use the CPAP more than 4 hours a night and benefits from this (6) Chronic low back pain: Code(s): M54.5 - Low back pain; G89.29 - Other chronic pain Category: Medical Qualifiers: Back pain laterality: midline Sciatica presence: without sciatica Qualified Code(s): M54.5 - Low back pain; G89.29 - Other chronic pain Plan: Keep well hydrated keep active exercise do stretches Plan History of Present Illness The patient is a 64-year-old male presenting for a follow-up visit. The patient has a history of obesity, with a recent weight loss of 12 pounds noted, which is a positive development in his weight management efforts. He was diagnosed with obstructive sleep apnea in 2021 and is currently using CPAP therapy, which he finds beneficial when used for more than 4 hours a night. The patient has a history of psoriasis, for which he uses clobetasol cream. He has not seen a animal anatomist but is open to a referral for specialized care. He has been diagnosed with gastroesophageal reflux disease (GERD) and hypothyroidism, both of which are managed with medication. The patient has a history of hypertension, diabetes mellitus, and hypercholesterolemia. His blood pressure is managed with metoprolol and amlodipine, while his diabetes is controlled with metformin and tirzepatide, maintaining an A1c of 6.0. His cholesterol levels are managed with atorvastatin, with an LDL cholesterol level of 91 mg/dL. The patient has a history of ascending aortic dilatation, noted to be 3.7 cm in March 2024. He has chronic anemia, which has been stable over the past three to five years. His recent blood work showed normal sodium, potassium, kidney function, and liver function tests. The patient had a colonoscopy in 2021, which revealed a heavy tubular adenoma. Preventative care measures include a recent shingles vaccination and a planned pneumonia vaccination due to his age. Health Maintenance - Pneumonia vaccination planned due to age - Shingles vaccination completed recently - Colonoscopy in 2021 showed heavy tubular adenoma Social History - Exercise: Engages in regular physical activity and stretches Review of Systems - Musculoskeletal: Reports low back pain and sharp pain in the tip of the finger Physical Exam Results - Labs: Hemoglobin A1c at 6.0, LDL cholesterol at 91 mg/dL, normal sodium, potassium, kidney function, and liver function tests - Tests: Colonoscopy in 2021 showed heavy tubular adenoma Plan The patient will continue with current management for diabetes mellitus, including metformin and tirzepatide, aiming to maintain an A1c below 6.5. For hypercholesterolemia, atorvastatin will be continued to keep LDL cholesterol below 100 mg/dL. Hypertension management will continue with metoprolol and amlodipine. The patient is advised to continue using CPAP therapy for obstructive sleep apnea, ensuring usage for more than 4 hours nightly. A referral to dermatology will be made for psoriasis management, and clobetasol cream will be prescribed for symptomatic relief. Preventative care includes administering a pneumonia vaccination and ensuring documentation of the recent shingles vaccination. Patient was informed and verbally consented to the use of an ambient scribe for clinic note documentation during this visit. Discussion Notes During the visit, I discussed the importance of maintaining current management strategies for diabetes, hypercholesterolemia, and hypertension. We reviewed the benefits of CPAP therapy for obstructive sleep apnea and the need for consistent use. I recommended a dermatology referral for psoriasis and discussed the use of clobetasol cream. Preventative care measures, including pneumonia vaccination and shingles vaccination documentation, were also addressed. Patient Instructions - Continue taking metformin and tirzepatide as prescribed. - Take atorvastatin daily to manage cholesterol levels. - Use CPAP machine for more than 4 hours each night. - Apply clobetasol cream as needed for psoriasis. - Schedule and attend a dermatology appointment. - Receive pneumonia vaccination as planned. Orders: Orders AMB Hemoglobin A1c Today Z13.9 - Encounter for screening, unspecified Pneumococcal 20 Immunization Today Z23 - Encounter for immunization Referrals Dermatology Referral L40.9 - Psoriasis, unspecified Medications: Refilled clobetasol 0.05% apply affected area topical 2 times a day; 60 grams 1RF L40.9 - Psoriasis, unspecified
[2025-04-28 13:10] VITALS: BP 140/76; PULSE 79; RESP 18; TEMP 36.3; O2SAT 96; BMI 33.5
--- OUTSIDE RECORDS SUMMARY | 2025-04-28 13:33 | XMS_ITS | Patient Health Record ---
Author Organization [facility] Address [address] [place] [address] Care Team Providers Care Road Production General Manager Name Role Phone Clarita Wynne MD Primary Care Provider Maksim Hebert [phone] Allergies No Known Allergies Reason For Referral [...] Problem Status W/U Status Risk Notes Problem [id number] Encounter for screening for malignant neoplasm of colon (Z12.11) Active confirmed Problem 44892629 Blood in stool (K92.1) Active confirmed Problem 622597890 Gastroesophageal reflux disease, esophagitis presence not specified (K21.9) Active confirmed Problem 985309947 Family history o f colon cancer (Z80.0) Active confirmed Problem 54618966 Pharyngoesophage al dysphagia (R13.14) Active confirmed Problem Gastroesophageal reflux (K21.9) Active confirmed Problem Diverticulosis of colon (045071780) Diverticulosis of colon (K57.30) Active confirmed Plan Of Treatment Pending Test Test Name Order Date Pathology 12/13/2021 Future Test Test Name Order Date UPPER GI ENDOSCOPY BALLOOON DILATION OF ESOPH 12/20/2017 COLONOSCOPY 12/20/2017 UPPER GI ENDOSCOPY 11/09/2021 COLONOSCOPY 11/09/2021 Insurance Providers Payer Name Payer Address Payer Phone Subscriber Number Group Number Insured Name Patient Relationship to Insured Coverage Start Date Coverage End Date [facility] [address] [place] [phone] [id number] 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 Shena paez Left knee arthroscopy 2020 [facility]
== END 2025-04-28 13:35 | disposition home or self-care (01) ==
LOC: HO.HMCH 12:53
PROVIDERS: PCP Internal Medicine; Visit Provider Internal Medicine
DX: E11.65 Type 2 diabetes mellitus with hyperglycemia (principal); E66.9 Obesity, unspecified; E78.00 Pure hypercholesterolemia, unspecified; Z68.33 Body mass index [BMI] 33.0-33.9, adult; I10 Essential (primary) hypertension; G47.33 Obstructive sleep apnea (adult) (pediatric); M54.50 Low back pain, unspecified; G89.29 Other chronic pain; Z23 Encounter for immunization

== ENCOUNTER → 2025-04-28 12:52 | Outpatient (BNVA) | payer OTHER, SELFPAY | PROVIDERS: PCP Internal Medicine; Visit Provider Internal Medicine | DX: E11.65 Type 2 diabetes mellitus with hyperglycemia (principal); E66.9 Obesity, unspecified; E78.00 Pure hypercholesterolemia, unspecified; I10 Essential (primary) hypertension; G47.33 Obstructive sleep apnea (adult) (pediatric); M54.50 Low back pain, unspecified; G89.29 Other chronic pain; K21.9 Gastro-esophageal reflux disease without esophagitis; E03.9 Hypothyroidism, unspecified; Z23 Encounter for immunization; Z68.33 Body mass index [BMI] 33.0-33.9, adult | CPT/HCPCS: 83036; 90471; 90677; 96127; 99212 ==

== ENCOUNTER 2025-08-21 11:40 | Outpatient (AMB) | payer OTHER, SELFPAY ==
[2025-08-21 11:45] VITALS: BP 130/70; PULSE 78; O2SAT 98; BMI 32.7
--- NOTE | 2025-08-21 11:45 | A.OFFPC_ITS ---
Vital Signs 08/21/25 11:45 Height 5 ft 2 in Weight 179 lb BMI 32.7 BP 130/70 Blood Pressure Location Lt brachial Position Sitting Pulse 78 Pulse Source Pulse Oximeter Pulse Oximetry (%) 98 Oxygen Delivery Method Room Air Intake Visit Reasons: LBP, DM Allergies lisinopril Allergy (Severe, Verified 08/21/25 11:45) cough Tobacco use date assessed: 04/28/25 Fall risk assessment: No Falls in past year Last assessed Fall Risk: 08/21/25 Dental Screening Dental Screen Date: 04/28/25 HPI HPI Comments History of Present Illness Details History of Present Illness The patient is a 64-year-old individual presenting for a follow-up visit for management of multiple chronic conditions. The patient has a history of obesity with a recent 4-pound weight loss, obstructive sleep apnea, gastroesophageal reflux disease, hypothyroidism, chronic low back pain, hypertension, diabetes mellitus, hypercholesterolemia, and ascending aortic dilatation. Regarding diabetes, the patient's most recent hemoglobin A1c is 5.7%. The patient is currently treated with metformin 500 mg twice daily and Mounjaro 7.5 mg once weekly. The patient wishes to increase the dose of Mounjaro and denies any nausea with the current dose. For cardiovascular health, the patient has a history of ascending aortic dilatation measuring 3.7 cm as of March 2024 and hypercholesterolemia with an LDL of 91 in April. The patient also has a known heart murmur. The patient's obstructive sleep apnea is managed with a CPAP machine, though the patient reports inconsistent use, finding it difficult. Other history includes mild chronic anemia, with lab work from April showing normal electrolytes, good renal function, and no proteinuria. For health maintenance, the patient reports having received flu and pneumonia vaccinations, with a tetanus shot due next year, and has a vision appointment scheduled for October. Health Maintenance The patient was advised to continue efforts towards weight loss and physical activity. Immunizations were reviewed and are up to date, with a tetanus shot planned for next year. The patient is scheduled for a vision check in October. Follow-up is scheduled for three months. Social History - Exercise: The patient has been encoura ged to keep moving. - Weight management: The patient has exp erienced a 4-pound weight loss, and further weight loss is a goal. Results - Labs (current): Hemoglobin A1c is 5.7% . - Labs (April): Blood work showed mild ch ronic anemia, normal electrolytes, good renal function, and an LDL of 91. - Urinalysis (April): No proteinuria. - Imaging (March 2024): Ascending aortic dilatation of 3.7 cm. 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 Dysphagia Type 2 diabetes mellitus with hyperglycemia Witnessed apneic spells History of herniated intervertebral disc Osteoarthritis Hx of iron deficiency anemia On beta anival at home History of COVID-19 Finger pain, right Renal calculi History of temporal arteritis Obstructive sleep apnea Psoriasis GERD (gastroesophageal reflux disease) (~04/15/21) Obesity (BMI 30-39.9) Hypothyroid Chronic low back pain Hypertension Surgical History History of esophagogastroduodenoscopy (EGD) Hx of hand surgery Hx of arthroscopy of left knee Hx of surgical amputation of finger Hx of colonoscopy Status post trigger finger release Total knee replacement status History of arthroscopy of right knee History of cholecystectomy Family History Father Colon cancer Mother Hypertension CVD (cardiovascular disease) Sister Breast cancer Mouth cancer Brother Throat cancer Social History Housing: House Are you a primary care program director to a significant other at home: No Do you presently have visiting nurse or other home services: No Alcohol intake: never Patient Tobacco Use Status: Never used Tobacco Tobacco use type: Cigarette e-Cigarette/Vaping Use: Never Used Second Hand Smoke Exposure: No service: No Current occupational status: disabled Current occupation: [employer] Cognitive needs: No Hearing needs: No Vision needs: No Questionnaire PHQ-9 Over the last 2 weeks, how often have you been bothered by any of the following problems? 1. Little interest or pleasure in doing things: not at all 2. Feeling down, depressed, or hopeless: not at all 3. Trouble falling or staying asleep, or sleeping too much: not at all 4. Feeling tired or having little energy: not at all 5. Poor appetite or overeating: not at all 6. Feeling bad about yourself - or that you are a failure or have let yourself or your family down: not at all 7. Trouble concentrating on things, such as reading the newspaper or watching television: not at all 8. Moving or speaking so slowly that other people could have noticed. Or the opposite - being so fidgety or restless that you have been moving around a lot more than usual: not at all 9. Thoughts that you would be better off or of hurting yourself in some way: not at all Total score: 0 Source: Developed by Drs. Maksim Anderson, Agueda Banks, Mat Root and colleagues, with an educational saumya from [employer] Thrive Questionnaire Date Thrive assessed: 04/28/25 I am a: Patient What is your living situation today?: I have a steady place to live Within the past 12 months, did the food you bought not last and you didn't have the money to get more?: I choose not to answer this question Within the past 12 months, did you worry whether your food would run out before you got money to buy more?: I choose not to answer this question Do you have trouble paying for medicines?: No Do you have trouble getting transportation to medical appointments?: No Do you have trouble paying your heating and electricity bill?: No Do you have trouble taking care of your child, family member or friend?: No Do you have trouble with day-to-day activities such as bathing, preparing meals, shopping, managing finances, etc.?: No Are you currently unemployed and looking for a job?: No Are you interested in more education?: No Please select the resources that you would like help with: None Currently or been in a relationship where the following occur: I choose not to answer THRIVE Score: 0 AUDIT C Alcohol Use Questionnaire (AUDIT-C) 1. How often do you have a drink containing alcohol?: Never Total Score: 0 MIKAYLA-7 AMB Questionnaire MIKAYLA-7 Date MIKAYLA - 7 assessed: 04/28/25 Feeling nervous, anxious, or on edge: 0 = Not at all Not being able to stop or control worryin = Not at all Worrying too much about different things: 0 = Not at all Trouble relaxin = Not at all Being so restless that it is hard to sit still: 0 = Not at all Becoming easily annoyed or irritable: 0 = Not at all Feeling afraid as if something awful might happen: 0 = Not at all Total MIKAYLA-7 score (0-4 normal; 5-9 mild; 10-14 moderate; 15-21 severe): 0 Source: Developed by Drs. Maksim Anderson, Agueda Banks, Mat Root and colleagues, with an educational saumya from [employer] Review of Systems Narrative Review of Systems - Constitutional: Reports a 4-pound weight loss. - GI: Denies nausea with current medications. - Pain: Reports chronic low back pain. - Respiratory: Reports difficulty using the CPAP machine. - Extremities: Denies leg swelling. Physical exam (Primary Care) Vital Signs: Last Vital Signs Pulse 78 08/21/25 11:45 BP 130/70 08/21/25 11:45 Pulse Ox 98 08/21/25 11:45 Oxygen Delivery Method Room Air 08/21/25 11:45 BMI result Body Mass Index 32.7 Tobacco/Smoking Status: Tobacco use Status Tobacco use date assessed 04/28/25 08/21/25 11:46 Patient Tobacco Use Status Never used Tobacco 08/21/25 11:46 Tobacco use type Cigarette 08/21/25 11:46 e-Cigarette/Vaping Use Never Used 08/21/25 11:46 PHQ-9: PHQ-9 Score PHQ-9: Total score 0 08/21/25 12:12 Thrive Assessment: Date of Thrive Assessment Date Thrive assessed 04/28/25 08/21/25 11:46 Currently or been in a relationship where the following occur: I choose not to answer Narrative Physical Exam - General: Obese individual. - Cardiovascular: Auscultation reveals a heart murmur. - Extremities: No lower extremity edema. Const General: alert; No acute distress Eyes Conjunctivae: conjunctivae normal Resp Auscultation: clear to auscultation bilaterally Cardio Rate: regular rate Rhythm: regular rhythm GI Inspection: Yes normal to inspection Extrem General: Yes normal to inspection and No edema Results AMB Hemoglobin A1c AMB Hemoglobin A1c 5.7 % Last Edit by Iveth Cuevas CMA on 08/21/25 12 :07 Results Reviewed Results Reviewed: Laboratory Last Values Hgb A1c (Clinic) 5.7 % (4.0-6.0) 08/21/25 11:46 Coding Level of Care Code Complex visit Add On G2211 Diagnoses Type 2 diabetes mellitus with hyperglycemia, without long-term current use of insulin E11.65 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 insulin use: without pattern layout worker use Hypothyroid E03.9 Essential hypertension I10 Hypertension type: essential hypertension Hypercholesterolemia E78.00 Gastroesophageal reflux disease without esophagitis K21.9 Esophagitis presence: without esophagitis Mild aortic stenosis I35.0 Chronic midline low back pain without sciatica M54.5; G89.29 Back pain laterality: midline Sciatica presence: without sciatica Obstructive sleep apnea G47.33 Assessment & Plan Assessment & Plan (1) Type 2 diabetes mellitus with hyperglycemia: Code(s): E11.65 - Type 2 diabetes mellitus with hyperglycemia Category: Medical Qualifiers: Diabetes mellitus fdc insulin use: without fdc use Qualified Code(s): E11.65 - Type 2 diabetes mellitus with hyperglycemia Plan: Decrease the amount of carbohydrate intake, pasta, bread, rice and potatoes are all sugar and that is aside from all the sweet stuff, remember that fruits are good but they are Sweet also. Hemoglobin A1c goal of less than 6.5. Patient is on metformin 500 mg twice a day Mounjaro at 7.5 mg once a week (2) Hypothyroid: Code(s): E03.9 - Hypothyroidism, unspecified Category: Medical Plan: Continue with thyroid medication 2024 last blood (3) Hypertension: Code(s): I10 - Essential (primary) hypertension Category: Medical Qualifiers: Hypertension type: essential hypertension Qualified Code(s): I10 - Essential (primary) hypertension Plan: Continue with blood pressure medication. Decrease salt intake and exercise on amlodipine 10 mg once a day hydrochlorothiazide 12.5 mg once a day metoprolol 200 mg once a day (4) Hypercholesterolemia: Code(s): E78.00 - Pure hypercholesterolemia, unspecified Category: Medical Plan: Avoid fried foods, chicken skin, eggs, butter margarine, pastries and meat. Be it pork or beef they have a lot of cholesterol LDL goal of less than 100 and triglyceride of less than 150 on atorvastatin 80 mg once a day April 2025 last blood work (5) GERD (gastroesophageal reflux disease): Onset Date: ~04/15/21 Code(s): K21.9 - Gastro-esophageal reflux disease without esophagitis Category: Medical Qualifiers: Esophagitis presence: without esophagitis Qualified Code(s): K21.9 - Gastro-esophageal reflux disease without esophagitis Plan: Avoid the foods that causes that usually spicy foods, tomato products, juices, coffee, soda and foods that your sensitive to. After eating do not lie down, allow 3-4 hours before in lie down. And keep the head of bed above 30 degrees to avoid the acid from going up. (6) Mild aortic stenosis: Comment: 10/2021 Code(s): I35.0 - Nonrheumatic aortic (valve) stenosis Category: Medical Plan: Will continue to monitor (7) Chronic low back pain: Code(s): M54.5 - Low back pain; G89.29 - Other chronic pain Category: Medical Qualifiers: Back pain laterality: midline Sciatica presence: without sciatica Qualified Code(s): M54.5 - Low back pain; G89.29 - Other chronic pain Plan: Continue with pain medication as needed (8) Obstructive sleep apnea: Comment: Awaiting CPAP Decemberleep study done 06/09/2023 showing severe obstructive sleep apnea AHI 34 with nocturnal hypoxemia treat with AutoPAP mode pressure setting 6-20 cm water Code(s): G47.33 - Obstructive sleep apnea (adult) (pediatric) Category: Medical Plan: Patient admits to use it as needed only but Advised to Continue with using the CPAP more than 4 hours a night to benefit Plan Plan Patient was informed and verbally consented to the use of an ambient scribe for clinic note documentation during this visit. 1. Diabetes Mellitus The patient's hemoglobin A1c is 5.7%, which is well below the target goal of less than 6.5%. The patient requested an increase in the weekly Mounjaro dose from 7.5 mg to 10 mg and denied experiencing any nausea. The plan is to increase Mounjaro to 10 mg once weekly and continue metformin 500 mg twice a day. 2. Hypertension The patient's blood pressure is well-controlled. The plan is to continue the current regimen of amlodipine 10 mg, hydrochlorothiazide 12.5 mg, and metoprolol 200 mg once daily. 3. Hypercholesterolemia The patient's LDL of 91 from April meets the goal of less than 100. Continue atorvastatin 80 mg once daily. 4. Obstructive Sleep Apnea The patient admits to inconsistent use of the CPAP machine. The patient was counseled on the importance of regular CPAP use for cardiac health and the benefits of weight loss. 5. Ascending Aortic Dilatation The patient's ascending aortic dilatation measured 3.7 cm in March 2024. Will continue to monitor. 6. Chronic Low Back Pain Continue pain medication as needed. 7. Hypothyroidism Continue current thyroid medication. 8. Gastroesophageal Reflux Disease Continue monitoring of symptoms. Discussion Notes I informed the patient that the hemoglobin A1c of 5.7% is very good. We discussed the patient's request to increase the weekly diabetes injection, and after confirming no side effects like nausea, I agreed to increase the Mounjaro dose from 7.5 mg to 10 mg. [facility] I reviewed the importance of using the CPAP machine regularly for obstructive sleep apnea, highlighting its connection to heart health, and encouraged weight loss as a puga strategy. We confirmed that immunizations including the flu shot and pneumonia shot are up to date, and that a tetanus shot will be due next year. I encouraged the patient to stay active and continue with weight loss efforts. A follow-up visit in three months was recommended. Patient Instructions - I am increasing your weekly Mounjaro injection dose to 10 mg. - I have sent the new prescription to your pharmacy. - Continue taking all your other medications as prescribed for blood pressure, cholesterol, and thyroid function. - It is very important to use your CPAP machine every night to help with your sleep apnea and protect your heart. - Continue your efforts to lose weight and keep moving to stay active. - You have an eye doctor appointment in October; please make sure to go. - Your flu and pneumonia shots are up to date. - Schedule a follow-up appointment with me in three months. Orders: Orders AMB Hemoglobin A1c Today Z13.9 - Encounter for screening, unspecified Medications: Changed From tirzepatide (Mounjaro) 7.5 mg (0.5 mL) subcut QWEEK 2 mL 3RF E11.65 - Type 2 diabetes mellitus with hyperglycemia To tirzepatide 10 mg (0.5 mL) subcut QWEEK 2 mL 3RF E11.65 - Type 2 diabetes mellitus with hyperglycemia
== END 2025-08-21 12:19 | disposition home or self-care (01) ==
LOC: HO.HMCH 11:41
PROVIDERS: PCP Internal Medicine; Visit Provider Internal Medicine
DX: E11.65 Type 2 diabetes mellitus with hyperglycemia (principal); E03.9 Hypothyroidism, unspecified; I10 Essential (primary) hypertension; E78.00 Pure hypercholesterolemia, unspecified; K21.9 Gastro-esophageal reflux disease without esophagitis; I35.0 Nonrheumatic aortic (valve) stenosis; M54.50 Low back pain, unspecified; G89.29 Other chronic pain; G47.33 Obstructive sleep apnea (adult) (pediatric); Z13.9 Encounter for screening, unspecified

== ENCOUNTER → 2025-08-21 11:40 | Outpatient (BNVA) | payer OTHER, SELFPAY | PROVIDERS: PCP Internal Medicine; Visit Provider Internal Medicine | DX: E11.65 Type 2 diabetes mellitus with hyperglycemia (principal); E03.9 Hypothyroidism, unspecified; E78.00 Pure hypercholesterolemia, unspecified; I10 Essential (primary) hypertension; K21.9 Gastro-esophageal reflux disease without esophagitis; I35.0 Nonrheumatic aortic (valve) stenosis; M54.59 Other low back pain; G89.29 Other chronic pain; G47.33 Obstructive sleep apnea (adult) (pediatric) | CPT/HCPCS: 83036; 96127; 99212 ==